=== PATIENT | female | born 1970 | race Caucasian/White ===

== ENCOUNTER 2020-01-29 17:41 | Emergency (ER) | payer OTHER, SELFPAY ==
[2020-01-29 18:22] VITALS: BP 127/76; PULSE 72; RESP 16; TEMP 37.2; O2SAT 98; BMI 26.8
--- NOTE | 2020-01-29 18:58 | ED.BACK ---
HPI - Back Pain/Injury General Chief Complaint: Back Pain/Injury <Temo Benitez NP - Last Filed: 01/29/20 19:11> Stated Complaint: BACK PAIN <Temo Benitez NP - Last Filed: 01/29/20 19:11> Time Seen by Provider: 01/29/20 18:58 <Temo Benitez NP - Last Filed: 01/29/20 19:11> Source: patient <Temo Benitez NP - Last Filed: 01/29/20 19:11> Mode of arrival: ambulatory <Temo Benitez NP - Last Filed: 01/29/20 19:11> Limitations: no limitations <Temo Benitez NP - Last Filed: 01/29/20 19:11> History of Present Illness HPI Narrative: 49-year-old female with history of arthritis and chronic back pain in the setting of degenerative disc disease for which she sees ? 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 States back pain feels achy and tense. Similar to her previous episodes. There is no GI symptoms. There is no fever. Denies any history of IVDA use. No headache. No abdominal pain. No loss of bowel or urine control. <Temo Benitez NP - Last Filed: 01/29/20 19:11> MD elicited complaint: back injury ( Cleaning at work) <Temo Benitez NP - Last Filed: 01/29/20 19:11> Pertinent past history: prior back pain <Temo Benitez NP - Last Filed: 01/29/20 19:11> Onset (ago): hour(s) <Temo Benitez NP - Last Filed: 01/29/20 19:11> Timing: intermittent ( improved with rest and certain positions) <Temo Benitez NP - Last Filed: 01/29/20 19:11> Severity: moderate <Temo Benitez NP - Last Filed: 01/29/20 19:11> Similar Symptoms Previously: Yes <Temo Benitez NP - Last Filed: 01/29/20 19:11> Exacerbating factors: movement <Temo Benitez NP - Last Filed: 01/29/20 19:11> Relieving factors: other ( rest) <Temo Benitez NP - Last Filed: 01/29/20 19:11> Work related injury: Yes <Temo Benitez NP - Last Filed: 01/29/20 19:11> Related Data Home Medications: Previous Rx's Medication Instructions Recorded cyclobenzaprine 10 mg PO TID PRN #20 tab 01/29/20 ibuprofen 800 mg PO Q8H PRN #30 tab 01/29/20 lidocaine 1 patch TOPICAL Q24H PRN #10 ea 01/29/20 <Temo Benitez NP - Last Filed: 01/29/20 19:11> Allergies/Adverse Reactions: Allergies Allergy/AdvReac Type Severity Reaction Status Date / Time No Known Allergies Allergy Unverified 01/08/20 17:12 [No Known Allergies*] gabapentin [GABAPENTIN] AdvReac Intermediate INADEQUATE Unverified 01/09/20 10:17 RESPONSE prednisone [PREDNISONE] AdvReac Intermediate INADEQUATE Unverified 01/09/20 10:17 RESPONSE BuPROPion HCl Allergy Unknown Uncoded 05/23/19 00:00 <Temo Benitez NP - Last Filed: 01/29/20 19:11> Review of Systems Review of Systems: Constitutional: No Weight loss, No Fever, No Chills, No Night Sweats, No Fatigue, No Malaise ENT/Mouth: No Hearing loss, No Ear Pain, No Nasal Congestion, No Sinus Pain, No Hoarseness, No sore throat, No Rhinorrhea, No Swallowing Difficulty Eyes: No Eye Pain, No Swelling, No Redness, No Foreign Body, No Discharge, No Vision Changes Cardiovascular: No Chest Pain, No SOB, No Dyspnea on Exertion, No Orthopnea, No Edema, No Palpitations Respiratory: No Cough, No Sputum, No Wheezing, No Smoke Exposure, No Dyspnea Gastrointestinal: No Nausea, No Vomiting, No Diarrhea, No Constipation, No abdominal Pain, No Hematochezia, No Melena Genitourinary: no irregular bleeding, No Dysuria, No Urinary Frequency, No Hematuria, No Urinary Incontinence, No Urgency, No Flank Pain, No Urinary Flow Changes, No Hesitancy Musculoskeletal: No joint pain, No Myalgias, No Joint Swelling Skin: No Skin Lesions, No rash Neuro: No Weakness, No Numbness, No Paresthesias, No Loss of Consciousness, No Dizziness, No Headache Psych: No Anxiety/Panic, No Depression, No SI/HI/AH/VH, No Social Issues, Heme/Lymph: No Bruising, No Bleeding,No Lymphadenopathy Endocrine: No Polyuria, No Polydipsia, No Temperature Intolerance <Temo Benitez NP - Last Filed: 01/29/20 19:11> [facility] Past Medical History Attestation statement: The following information was validated with the patient. <Temo Benitez NP - Last Filed: 01/29/20 19:11> Medical History: Medical History (Updated 01/29/20 @ 19:09 by Temo Benitez NP) Asthma Depression Herniated disc Mild asthma Right knee pain <Temo Benitez NP - Last Filed: 01/29/20 19:11> Social History Social History: Social History Smoking Status: Never smoker Use of substances other than those prescribed or required for medical reasons: No Advance Directives: No Advance Directives Information Provided: Yes <Temo Benitez NP - Last Filed: 01/29/20 19:11> Physical Exam Vital Signs and I&O and Narrative: Vital Signs and I&O: Vital Signs Temp 99.0 F 01/29/20 18:22 Pulse 72 01/29/20 18:22 Resp 16 01/29/20 18:22 BP 127/76 01/29/20 18:22 Pulse Ox 98 01/29/20 18:22 Intake & Output 01/29/20 01/29/20 01/30/20 06:59 18:59 06:59 Weight 64.41 kg Body Mass Index 26.8 <Temo Benitez NP - Last Filed: 01/29/20 19:11> Vital Signs and I&O: Vital Signs Temp 99.0 F 01/29/20 18:22 Pulse 72 01/29/20 18:22 Resp 16 01/29/20 18:22 BP 127/76 01/29/20 18:22 Pulse Ox 98 01/29/20 18:22 Intake & Output 01/29/20 01/29/20 01/30/20 06:59 18:59 06:59 Weight 64.41 kg Body Mass Index 26.8 <Bin Roberson DO - Last Filed: 01/29/20 23:04> Const: General: cooperative and healthy appearing; No acute distress or intoxicated appearing <[facility] Bentiez, REGULATORY ASSOCIATE - Last Filed: 01/29/20 19:11> Nutritional Appearance: average body habitus <[facility] Benitez - Last Filed: 01/29/20 19:11> Orientation/consciousness: patient oriented x3 [facility] Last Filed: 01/29/20 19:11> HENMT: Head: Yes normal to inspection <[facility] - Last Filed: 01/29/20 19:11> Ears: hearing grossly normal bilaterally <[facility] - Last Filed: 01/29/20 19:11> Eyes: General: appearance normal, both eyes and all related structures <[facility] Benitez, - Last Filed: 01/29/20 19:11> Visual Henriquez: normal visual henriquez by confrontation <[facility] lEi - Last Filed: 01/29/20 19:11> Neck: Neck: Yes normal visual inspection, No positive Brudzinski's sign, No positive Kernig's sign and No tender <[facility] Eli - Last Filed: 01/29/20 19:11> Thyroid: Thyroid normal <[facility] - Last Filed: 01/29/20 19:11> Chest: Chest palpation & inspection: normal inspection of the chest <[facility] Eli - Last Filed: 01/29/20 19:11> Resp: Effort & Inspection: normal respiratory effort <[facility] Eli - Last Filed: 01/29/20 19:11> Cardio: Jugular venous distension: no JVD <[facility] Eli - Last Filed: 01/29/20 19:11> GI: Inspection: Yes normal to inspection <[facility] Eli - Last Filed: 01/29/20 19:11> Percussion: Yes normal to percussion <[facility] - Last Filed: 01/29/20 19:11> Auscultation: normal bowel sounds <[facility] - Last Filed: 01/29/20 19:11> : General: Yes no CVA tenderness <Temo SimonDENISE douglas - Last Filed: 01/29/20 19:11> Back/Spine/Pelvis: Other: mild tenderness to the paraspinal muscles bilaterally. No midline standard palpation. deep tendon reflexes within normal limits. Negative leg lift. Negative Homans. Negative Spurling. <Temo BenitezDENISE - Last Filed: 01/29/20 19:11> Back: no CVA tenderness <Temo SimonDENISE douglas - Last Filed: 01/29/20 19:11> Skin: General skin exam: no rashes or lesions noted <Temo SimonDENISE douglas - Last Filed: 01/29/20 19:11> Neuro: General: patient oriented x3 <Temo SimonDENISE douglas - Last Filed: 01/29/20 19:11> Extrem: General: Yes normal to inspection <Temo SimonDENISE douglas - Last Filed: 01/29/20 19:11> Course Course Course Narrative: Agreeable plan. No low back pain red flags. Will DC with NSAID/ muscle axis/ topical light a and plan for follow-up with her back surgeon/ PT. Injury did occur at work will follow-up with her [facility] and [facility]. <Temo SimonDENISE douglas - Last Filed: 01/29/20 19:11> MDM - Back Pain/Injury Differential Diagnosis Differential diagnosis: Likely lumbar radiculopathy, sciatica and strain of lumbar region; Unlikely renal colic, pyelonephritis, thoracic back pain, AAA and discitis <Temo SimonDENISE douglas - Last Filed: 01/29/20 19:11> Medical Records Attestation: I reviewed the patient's medical records. <Temo SimonDENISE douglas - Last Filed: 01/29/20 19:11> Discharge Plan Discharge Clinical Impression: Strain of lumbar region Qualifiers: Encounter type: initial encounter Qualified Code(s): S39.012A - Strain of muscle, fascia and tendon of lower back, initial encounter <Temo DENISE Benitez - Last Filed: 01/29/20 19:11> Patient Disposition: Home, Self-Care <Temo SimonDENISE douglas - Last Filed: 01/29/20 19:11> Instructions: Back Pain (ED) <Temoherbert Benitez NP - Last Filed: 01/29/20 19:11> Prescriptions: New cyclobenzaprine 10 mg tablet 10 mg PO TID PRN (Reason: muscle spasm) Qty: 20 RF: 0 ibuprofen 800 mg tablet 800 mg PO Q8H PRN (Reason: pain) Qty: 30 RF: 0 lidocaine 4 % adhesive patch,medicated 1 patch topical Q24H PRN (Reason: pain) Qty: 10 RF: 0 <Temo Benitez NP - Last Filed: 01/29/20 19:11> Stand Alone Forms: Work/School Release <Temo Benitez NP - Last Filed: 01/29/20 19:11> Interventions: ED Discharge Assessment Last Done: 01/29/20 19:45 <Temo Benitez NP - Last Filed: 01/29/20 19:11> Discharge Date/Time: 01/29/20 20:00 <Temo Benitez NP - Last Filed: 01/29/20 19:11>
== END 2020-01-29 20:00 | disposition home or self-care (01) ==
PROVIDERS: Emergency Provider Emergency Medicine; PCP Internal Medicine
DX: S39.012A Strain of muscle, fascia and tendon of lower back, initial encounter (principal); X50.1XXA Overexertion from prolonged static or awkward postures, initial encounter; Y93.E5 Activity, floor mopping and cleaning; Y92.59 Other trade areas as the place of occurrence of the external cause; Y99.0 Civilian activity done for income or pay; Z79.899 Other long term (current) drug therapy
CPT/HCPCS: 99283

== ENCOUNTER → 2020-03-03 13:24 | Outpatient (BNVA) | payer OTHER, SELFPAY | PROVIDERS: Visit Provider Obstetrics & Gynecology | DX: Z01.818 Encounter for other preprocedural examination (principal); N92.1 Excessive and frequent menstruation with irregular cycle | CPT/HCPCS: 99212 ==

== ENCOUNTER 2020-03-05 08:13 | Day surgery (SDC) | payer OTHER, SELFPAY ==
[2020-03-02 19:25] VITALS: BMI 25.9
--- NOTE | 2020-03-03 14:43 | P.CONAN_ITS ---
Documented by User: Chanda Ramirez 03/03/20 14:45 HPI - Anesthesia Eval Consult details Narrative: 49yo F for Uterine Ablation w/Racheleasure PMFSH Past Medical History Medical History Anxiety Asthma Back pain Depression Herniated disc Mild asthma Right knee pain Surgical History Surgical History (Updated 03/03/20 @ 14:45 by Chanda Ramirez) H/O arthroscopy of knee H/O tubal ligation H/O umbilical hernia repair Social History Social History Alcohol intake: never Smoking Status: Former smoker Years Smoked: 20 Smoking Quit Date: 12 years ago Second Hand Smoke Exposure: No Use of substances other than those prescribed or required for medical reasons: No Advance Directives: No Advance Directives Information Provided: No Advance Directives on File: No Recently lost weight without trying: No Sexual orientation: Straight/Heterosexual Gender identity: female Meds Allergies Allergy/AdvReac Type Severity Reaction Status Date / Time gabapentin [GABAPENTIN] AdvReac Intermediate INADEQUATE Unverified 03/05/20 09:08 RESPONSE prednisone [PREDNISONE] AdvReac Intermediate INADEQUATE Unverified 03/05/20 09:08 RESPONSE BuPROPion HCl Allergy Unknown Unknown Uncoded 03/05/20 09:08 Home Medications Medication Instructions Recorded Confirmed Type clonazepam 1 tab PO DAILY PRN 03/02/20 03/03/20 History fluticasone propionate [Flovent 1 puff PO BID 03/02/20 03/03/20 History Diskus] sertraline 1.5 tab PO DAILY 03/02/20 03/03/20 History Exam Exam Date and Time: March 03, 2020 1443 Height,Weight and Vital Signs: Height 5 ft 1 in Weight 62.142 kg Pertinent Lab Results Pertinent Lab Results: Laboratory Tests 11/26/19 17:05 WBC 7.9 Hgb 10.9 L Hct 34.5 L Plt Count 291 Assessment and Plan Assessment Anesthesia Assessment: Chart Reviewed Documented by User: Tiffanie Rubio 03/05/20 09:49 [facility] Past Medical History Medical History Anxiety Asthma Back pain Depression Herniated disc Mild asthma Right knee pain Surgical History Surgical History (Updated 03/03/20 @ 14:45 by Chanda Ramirez) H/O arthroscopy of knee H/O tubal ligation H/O umbilical hernia repair Social History Social History Alcohol intake: never Smoking Status: Former smoker Years Smoked: 20 Smoking Quit Date: 12 years ago Second Hand Smoke Exposure: No Use of substances other than those prescribed or required for medical reasons: No Advance Directives: No Advance Directives Information Provided: No Advance Directives on File: No Recently lost weight without trying: No Sexual orientation: Straight/Heterosexual Gender identity: female Meds Allergies Allergy/AdvReac Type Severity Reaction Status Date / Time gabapentin [GABAPENTIN] AdvReac Intermediate INADEQUATE Unverified 03/05/20 09:08 RESPONSE prednisone [PREDNISONE] AdvReac Intermediate INADEQUATE Unverified 03/05/20 09:08 RESPONSE BuPROPion HCl Allergy Unknown Unknown Uncoded 03/05/20 09:08 Home Medications Medication Instructions Recorded Confirmed Type clonazepam 1 tab PO DAILY PRN 03/02/20 03/03/20 History fluticasone propionate [Flovent 1 puff PO BID 03/02/20 03/03/20 History Diskus] sertraline 1.5 tab PO DAILY 03/02/20 03/03/20 History Exam Airway Mallampati Class: I TM Dist: >3cm Neck ROM: Full Loose/Missing/Broken Teeth: No Heart: RRR Lungs: CTA Assessment and Plan Assessment Anesthesia Assessment: Anesthesia Plan Discussed and Chart Reviewed Final Anesthetic Review NPO: Yes ASA Class: II Final Preanesthetic Review: Meds/Allgs Chart Reviewed, Consent Obtained/Reviewed and Anes Risks/Benef Reviewed Patient Risk: Low Procedure Risk: Low Anesthetic Plan Anesthetic Plan: GA Disposition: Standard PACU
[2020-03-05 08:29] VITALS: BP 148/77; PULSE 70; RESP 20; TEMP 36.7; O2SAT 100; BMI 26.2
--- NOTE | 2020-03-05 08:46 | P.HPSUR_ITS ---
Pre-Procedural Eval Section A The patient is an INPATIENT: No Changes since office visit: No Cold of Flu in the past 2 weeks, No New Medical Problems, No Changes in Medication and No Patient answered all questions The History & Physical has been completed within 30 days and I have reviewed it.: Yes Section B Chief Complaint: Menometrorrhagia Allergies: Allergies Allergy/AdvReac Type Severity Reaction Status Date / Time gabapentin [GABAPENTIN] AdvReac Intermediate INADEQUATE Unverified 03/03/20 13: 46 RESPONSE prednisone [PREDNISONE] AdvReac Intermediate INADEQUATE Unverified 03/03/20 13:46 RESPONSE BuPROPion HCl Allergy Unknown Unknown Uncoded 03/03/20 13:46 Plan Diagnosis/Plan: Unchanged Patient has been examined and remains a candidate for the planned procedure
[2020-03-05] MEDS: Lactated Ringers 1,000 ML 100 ML IVCONT (09:07)
--- NOTE | 2020-03-05 10:05 | PM.OP ---
Brief Operative Note Date of Service: 03/05/20 Pre-op diagnosis: Menometrorrhagia Post-op diagnosis: same Procedure: NovaSure Endometrial Ablation Surgeon: Butch Mendez MD Anesthesia: MAC Estimated blood loss (mL): 0 Pathology: none sent Condition: stable Disposition: PACU
--- NOTE | 2020-03-05 10:07 | W.PM.OPN ---
Operative Note Operative Note Date of Service: 03/05/20 Narrative: Preop diagnosis: Menometrorrhagia Post Op Diagnosis: Same Anesthesia: MAC Assistanat: None QBL: Minimal Pathology: None Complications: None Procedure: The patient was put in the dorsal lithotomy position. She was prepped and draped in the usual sterile manner. Bimanual exam prior to prepping revealed a mobile, anteverted uterus. A speculum was placed in the vagina and the anterior lip of the cervix was grasped with a single toothed tenaculum and brought forward. Taking care not to enter deep into the uterus, a sound was passed inside to measure the length of the uterus and cervix. This length was found to be 8 cm. Next, Hegar dilator was inserted into the cervical os to measure the cervical length which was 3 cm. This yielded an endometrial cavity length of 5 cm. A series of Hegar dilators were then inserted sequentially into the cervical os up to a size of 5 mm. The Novasure device was then opened and tested; the fan deployed easily. The instrument was set to the correct cavity length and introduced into the uterine cavity. The fan was slowly deployed with gentle movements to ensure a snug fit within the cavity. The cavity width read 4.5 cm. The measurements were imported and a cavity check was done. The trumpet was then slid down to the cervix and the device was activated. The total burn time was 91 seconds. The fan was retracted and device removed. The fan was examined and revealed charred tissue. The tenaculum was removed and the cervix examined for hemostasis which was achieved using pressure. Finally the speculum was removed. The patient tolerated the procedure well and was brought to the recovery room in a stable condition. At the end of the procedure all sponges and instruments were counted and correct. The blood loss was minimal and there were no complications.
[2020-03-05 10:13] VITALS: BP 124/70; PULSE 65; RESP 14; TEMP 36.3; O2SAT 97
[2020-03-05 10:18] VITALS: BP 133/85; PULSE 66; RESP 16; O2SAT 97
[2020-03-05 10:23] VITALS: BP 143/83; PULSE 60; RESP 16; O2SAT 98
[2020-03-05 10:28] VITALS: BP 149/87; PULSE 62; RESP 16; O2SAT 98
[2020-03-05] MEDS: oxyCODONE HCl Immed Release 5 MG TABLET PO (10:38)
[2020-03-05] MEDS: Acetaminophen 325 MG TABLET 650 MG PO (10:38)
[2020-03-05 10:42] VITALS: BP 148/88; PULSE 56; RESP 16; O2SAT 99
--- NOTE | 2020-03-05 11:41 | HO.POSTANES ---
Post Anesthesia Evaluation Post Anesthesia Evaluation Vital Signs: Vital Signs Temp Pulse Resp BP Pulse Ox 03/05/20 10:42 56 16 148/88 H 99 03/05/20 10:28 62 16 149/87 H 98 03/05/20 10:23 60 16 143/83 H 98 03/05/20 10:18 66 16 133/85 97 03/05/20 10:13 97.3 F 65 14 124/70 97 03/05/20 08:29 98.1 F 70 20 148/77 H 100 Anesthesia: General Mental Status: Awake Pain Control: Satisfactory Nausea/Vomiting: None Hydration: Adequate Anesthesia-Related Issues: No Anes. Related Issues
== END 2020-03-05 11:25 | disposition home or self-care (01) ==
PROVIDERS: PCP Internal Medicine; Visit Provider Obstetrics & Gynecology
PROC: (CPT 58353; principal; 2020-03-05 09:40)
DX: N92.1 Excessive and frequent menstruation with irregular cycle (principal); J45.909 Unspecified asthma, uncomplicated; Z79.51 Long term (current) use of inhaled steroids; Z79.899 Other long term (current) drug therapy; Z88.8 Allergy status to other drugs, medicaments and biological substances; Z98.51 Tubal ligation status; Z87.891 Personal history of nicotine dependence
CPT/HCPCS: 58353; J1100; J1885; J2250; J2405; J3010

== ENCOUNTER → 2020-03-23 14:11 | Outpatient (BNVA) | payer OTHER, SELFPAY | PROVIDERS: Visit Provider Obstetrics & Gynecology | DX: Z76.89 Persons encountering health services in other specified circumstances (principal) ==

== ENCOUNTER 2020-03-30 11:24 | Outpatient (REF) | payer OTHER, SELFPAY ==
--- NOTE | 2020-03-30 | US_ITS ---
EXAMINATION: ULTRASOUND PELVIS COMPLETE CLINICAL INFORMATION: Ovarian cyst. COMPARISON: Ultrasound pelvis 11/26/2019 TECHNIQUE: Transabdominal and transvaginal ultrasound of the pelvis is performed. FINDINGS: The uterus is bulky, anteverted and anteflexed, measuring 9.8 cm in length, 3.5 cm AP, and 9.6 cm in transverse dimension. The endometrial thickness is 0.6 cm. There are several hypoechoic lesions. 1. Largest lesion in the left upper body of the uterus measures 4.6 x 4.1 x 5.2 cm. Previously it measured 5.4 x 4.2 x 4.9 cm. 2. Lesion in the right lower body of the uterus measures 2.2 x 1.5 x 1.9 cm. Roughly it measured 1.0 x 0.7 x 0.8 cm. 3. Lesion in the left lower body of the uterus measures 3.1 x 2.3 x 2.4 cm. Previously it measured 0.7 x 0.9 x 0.7 cm. There are small nabothian cysts in the cervix. The right ovary measures 1.9 x 1.2 x 1.3 cm and volume 1.6 mL. No focal lesion seen. The left ovary measures 2.4 x 1.3 x 1.5 cm and volume 2.5 mL. No lesion seen. There is no free fluid in the cul-de-sac. US/US pelvic complete IMPRESSION: Bulky anteverted uterus with at least 3 fibroids seen. On previous ultrasound 11/27/2019 there were more lesions seen, which are not well visualized on the present exam. Complex cyst seen in right ovary on the previous study. There are small nabothian cysts.
== END 2020-03-30 11:25 | disposition home or self-care (01) ==
LOC: HO.US 11:24
PROVIDERS: Visit Provider Obstetrics & Gynecology
DX: N83.299 Other ovarian cyst, unspecified side (principal)
CPT/HCPCS: 76830; 76856

== ENCOUNTER → 2020-04-05 12:11 | Outpatient (BNVA) | payer OTHER, SELFPAY | PROVIDERS: PCP Internal Medicine; Referring Provider Internal Medicine; Visit Provider Obstetrics & Gynecology | DX: Z76.89 Persons encountering health services in other specified circumstances (principal) ==

== ENCOUNTER 2020-05-31 17:14 | Outpatient (REF) | payer OTHER, SELFPAY | END 2020-05-31 17:15 | disposition home or self-care (01) | LOC: HO.LAB 17:14 | PROVIDERS: Visit Provider Internal Medicine | DX: Z20.822 Contact with and (suspected) exposure to COVID-19 (principal) | CPT/HCPCS: 36415; C9803; U0003; U0005 ==

== ENCOUNTER 2020-09-02 17:41 | Emergency (ER) | payer OTHER, SELFPAY ==
[2020-09-02 18:24] VITALS: BP 166/96; PULSE 81; RESP 16; TEMP 36.8; O2SAT 93; BMI 26.8
[2020-09-02 19:43] LABS: Influenza A PCR NEGATIVE (Negative); Influenza B PCR NEGATIVE (Negative); Resp Syncy Virus RNA Qual PCR NEGATIVE (Negative); SARS COV2 PCR INHOUSE NEGATIVE (Negative)
[2020-09-02 19:44] VITALS: BP 186/106; PULSE 85; RESP 14; TEMP 36.8; O2SAT 95
--- NOTE | 2020-09-02 20:43 | ED_ITS ---
HPI - Asthma General Chief Complaint: Asthma Stated Complaint: asthma Time Seen by Provider: 09/02/20 20:43 Source: patient Mode of arrival: ambulatory Limitations: no limitations History of Present Illness HPI Narrative: Patient with wheezing for 3 weeks. Saw her doctor a week ago and gave her a treatment. Patient states that she suffers from allergies. Was not placed on steroids. MD complaint: shortness of breath and wheezing Onset (ago): week(s) Severity: mild Associated symptoms: dry cough Related Data Home Medications Medication Instructions Recorded Confirmed clonazepam 1 tab PO DAILY PRN 03/02/20 08/26/20 fluticasone propionate [Flovent 1 puff PO BID 03/02/20 08/26/20 Diskus] sertraline 1.5 tab PO DAILY 03/02/20 08/26/20 Previous Rx's Medication Instructions Recorded cyclobenzaprine 10 mg PO TID PRN #20 tab 01/29/20 ibuprofen 800 mg PO Q8H PRN #30 tab 01/29/20 lidocaine 1 patch TOPICAL Q24H PRN #10 ea 01/29/20 tramadol 50 mg tablet 50 mg PO BID PRN 28 Days #56 tab 08/27/20 nebulizers #1 ea 09/01/20 albuterol sulfate 2 puff INHALATION QID PRN #8.5 g 09/02/20 mometasone [Nasonex] 2 spray INTRANASAL DAILY #17 g 09/02/20 prednisone 60 mg PO DAILY #12 tab 09/02/20 Allergies Allergy/AdvReac Type Severity Reaction Status Date / Time gabapentin [GABAPENTIN] AdvReac Intermediate INADEQUATE Verified 08/26/20 17:02 RESPONSE prednisone [PREDNISONE] AdvReac Intermediate INADEQUATE Verified 08/26/20 17:02 RESPONSE BuPROPion HCl Allergy Intermediate memory loss Uncoded 08/26/20 17:02 Review of Systems Constitutional: Constitutional: Reports no additional constitutional complaints Eyes: Eyes: Reports no additional eye complaints ENT: Denies dizziness Cardiovascular: Cardiovascular: Reports no additional cardiovascular complaints Respiratory: Respiratory: Reports as per HPI Gastrointestinal: Gastrointestinal: Reports no additional gastrointestinal complaints Genitourinary: Genitourinary: Reports no additional female genitourinary complaints Musculoskeletal: Musculoskeletal: Reports no additional musculoskeletal complaints Integumentary/Breasts: Skin/Breast: Denies rash Neurologic: Reports system reviewed and no additional complaints, except as documented, Denies dizziness and Denies Sensory deficit (Neuro) Psychiatric: Psychiatric: Denies anxiety [facility] Past Medical History Medical History (Updated 09/02/20 @ 20:49 by Ashutosh Shelley MD) Anxiety Asthma Back pain Depression Herniated disc Mild asthma Right knee pain Seasonal allergies Wheezing Surgical History H/O arthroscopy of knee H/O tubal ligation H/O umbilical hernia repair History of endometrial ablation Social History Social History Alcohol intake: never Smoking Status: Former smoker Years Smoked: 20 Second Hand Smoke Exposure: No Advance Directives: No Advance Directives Information Provided: No Patient : No Sexual orientation: Straight/Heterosexual Gender identity: female Physical Exam Vital Signs: Vital Signs: Last Vital Signs Temp 98.2 F 09/02/20 19:44 Pulse 85 09/02/20 19:44 Resp 14 09/02/20 19:44 BP 186/106 H 09/02/20 19:44 Pulse Ox 95 09/02/20 19:44 Body Mass Index 26.8 Const: General: healthy appearing Nutritional Appearance: average body habitus Orientation/consciousness: oriented to person and patient oriented x3 Limitations: no limitations HENMT: Head: Yes normal to inspection Ears: external ears normal General nose exam: Normal external nose present Mouth: Normal oral and palatal mucosa present and oropharynx normal Throat: Yes posterior oropharynx normal Eyes: General: appearance normal, both eyes and all related structures Neck: Other: supple Neck: Yes normal visual inspection Chest: Chest palpation & inspection: normal inspection of the chest Resp: Other: slight wheeze diffusely, cough Cardio: Jugular venous distension: no JVD Rate: regular rate Rhythm: regular rhythm Heart sounds: S1 normal heart sound present and S2 normal heart sound present GI: Inspection: Yes normal to inspection Palpation (GI): Soft to palpation, nontender and No hepatosplenomegaly present Auscultation: normal bowel sounds : General: Yes no CVA tenderness Back/Spine/Pelvis: Back: no CVA tenderness Skin: General skin exam: no rashes or lesions noted Neuro: General: oriented to person and patient oriented x3 Cranial nerves: Yes CN's II-XII intact bilaterally Motor exam (neuro): 5/5 motor strength pre sent throughout Sensory Exam: No Sensory deficit (Neuro) Extrem: General: Yes normal to inspection Psych: Appearance: grossly normal Course Course Course Narrative: will give albuterol and prednisone MDM - Asthma MDM Narrative Medical decision making narrative: Patient with asthma attack, likely due to seasonal allergies Lab Data Labs: Lab Results 09/02/20 Range/Units 18:54 Coronavirus (PCR) NEGATIVE (Negative) Influenza Type A (PCR) NEGATIVE (Negative) Influenza Type B (PCR) NEGATIVE (Negative) RSV RNA Qual (PCR) NEGATIVE (Negative) Discharge Plan Discharge Clinical Impression: Asthma with acute exacerbation Qualifiers: Asthma severity: mild Asthma persistence: persistent Qualified Code(s): J45.31 - Mild persistent asthma with (acute) exacerbation Patient Disposition: Home, Self-Care Instructions: Asthma (ED), Sinusitis (ED) Prescriptions: New albuterol sulfate 90 mcg/actuation HFA aerosol inhaler 2 puff inhalation QID PRN (Reason: shortness of breath or wheezing) Qty: 8.5 RF: 0 prednisone 20 mg tablet 60 mg PO DAILY Qty: 12 RF: 0 mometasone [Nasonex] 50 mcg/actuation spray,non-aerosol 2 spray intranasal DAILY Qty: 17 RF: 0 No Action tramadol 50 mg tablet 50 mg PO BID PRN (Reason: pain) 28 Days Qty: 56 RF: 0 (DME) AeroEclipse II Nebulizer Misc See Rx Instructions .ROUTE .MEDSUPPLY Qty: 1 RF: 0 cyclobenzaprine 10 mg tablet 10 mg PO TID PRN (Reason: muscle spasm) Qty: 20 RF: 0 ibuprofen 800 mg tablet 800 mg PO Q8H PRN (Reason: pain) Qty: 30 RF: 0 lidocaine 4 % adhesive patch,medicated 1 patch topical Q24H PRN (Reason: pain) Qty: 10 RF: 0 clonazepam 0.5 mg tablet 1 tab PO DAILY PRN (Reason: anxiety) RF: 0 sertraline 100 mg tablet 1.5 tab PO DAILY RF: 0 Flovent Diskus 250 mcg/actuation blister with device 1 puff PO BID RF: 0 ipratropium-albuterol 0.5 mg-3 mg(2.5 mg base)/3 mL solution for nebulization 3 ml inhalation ONCE Qty: 3 RF: 0 albuterol sulfate 2.5 mg /3 mL (0.083 %) solution for nebulization 2.5 mg continuous nebulization ONCE Qty: 3 RF: 0
[2020-09-02] MEDS: Albuterol Sulfate 90 MCG 8 GM INHALER 4 PUFF INHALE (21:02)
[2020-09-02] MEDS: predniSONE 20 MG TABLET 60 MG PO (21:03)
== END 2020-09-02 21:24 | disposition home or self-care (01) ==
PROVIDERS: Emergency Provider Emergency Medicine; PCP Internal Medicine
DX: J45.31 Mild persistent asthma with (acute) exacerbation (principal); Z20.822 Contact with and (suspected) exposure to COVID-19; J30.2 Other seasonal allergic rhinitis
CPT/HCPCS: 0241U; 36415; 99284

== ENCOUNTER 2020-09-23 11:05 | Outpatient (REF) | payer OTHER, SELFPAY ==
--- NOTE | ~2020-09-23 | US_ITS ---
EXAMINATION: US PELVIS COMPLETE CLINICAL INFORMATION: Benign neoplasm of connective and other soft tissues COMPARISON: Ultrasound pelvis 11/26/2019 and 03/30/2020 TECHNIQUE: Transabdominal and transvaginal imaging of pelvis is performed. FINDINGS: The uterus is anteverted and anteflexed measuring 9.7 cm in length, 4.7 cm in AP and 8.3 cm in transverse dimension. Endometrial thickness is 1.0 cm. There are several hypoechoic lesions in the uterus: 1. Lesion in the lower posterior body of uterus measures 0.9 x 0.8 x 1.1 cm. Previously measured 0.9 x 0.8 x 0.8 cm. 2. Lesion in the right mid body of uterus measures 1.3 x 1.0 x 1.4 cm. Previously it measured 1.1 x 1.1 x 1.2 cm. 3. Lesion in the left mid body of uterus measures 1.3 x 1.5 x 1.5 cm. Previously it measured 1.9 x 1.9 x 2.0 cm. 4. Lesion in the left mid body of uterus measures 1.2 x 1.0 x 1.1 cm. Previously it measured 1.2 x 1.4 x 1.2 cm. 5. Lesion in the upper anterior body of uterus measures 1.0 x 0.9 x 0.9 cm. Previously it measured 1.0 x 0.7 x 0.8 cm. 6. Lesion in the left mid body of uterus measures 1.7 x 1.4 x 1.5 cm. Previously it measured 0.7 x 0.9 x 0.7 cm. 7. Lesion in the left fundus and body junction measures 4.6 x 4.3 x 4.0 cm. Previously it measured 5.4 x 4.2 x 4.9 cm. 8. Lesion in the right body of uterus measures 1.5 x 1.5 x 1.6 cm. Previously it measured 0.8 x 0.5 x 0.8 cm. There is small complex nabothian cyst visualized. The right ovary measures 3.6 x 3.1 x 2.7 cm and volume 15.8 mL. There is anechoic simple cyst measuring 1.95 x 2.1 x 2.4 cm. Previously right ovary measured 2.8 x 2.3 x 3.2 cm. The left ovary measures 2.9 x 2.8 x 1.1 cm and volume 4.7 mL. Previously it measured 1.9 x 1.5 x 1.1 cm. There is minimal free fluid in the right adnexa. US/US pelvic complete IMPRESSION: Multiple uterine fibroids. Small nabothian cysts. Small simple right ovarian cyst. There is minimal free fluid in the right adnexa.
== END 2020-09-23 11:06 | disposition home or self-care (01) ==
LOC: HO.US 11:05
PROVIDERS: Visit Provider Obstetrics & Gynecology
DX: D21.9 Benign neoplasm of connective and other soft tissue, unspecified (principal)
CPT/HCPCS: 76830; 76856

== ENCOUNTER → 2020-10-04 16:14 | Outpatient (BNVA) | payer OTHER, SELFPAY | PROVIDERS: PCP Internal Medicine; Visit Provider Obstetrics & Gynecology ==

== ENCOUNTER 2020-10-18 13:45 | Outpatient (REF) | payer OTHER, SELFPAY ==
[2020-10-18 15:53] LABS: Glucose Urine UA NEG (NEG); Leukocyte Esterase Urine NEG (NEG); Nitrite Urine NEG (NEG); Specific Gravity - Urine 1.025 (1.005-1.025); Urine Blood NEG (NEG); Urine Ketones NEG (NEG); Urine Protein NEG (NEG-TRACE)
[2020-10-18 16:02] LABS: Appearance Urine CLEAR; Color Urine YELLOW
== END 2020-10-18 13:46 | disposition home or self-care (01) ==
LOC: HO.LAB 13:45
PROVIDERS: PCP Internal Medicine; Visit Provider Obstetrics & Gynecology
DX: R35.0 Frequency of micturition (principal)
CPT/HCPCS: 81003

== ENCOUNTER → 2021-04-13 15:50 | Outpatient (BNVA) | payer OTHER, SELFPAY | PROVIDERS: PCP Internal Medicine; Visit Provider Obstetrics & Gynecology ==

== ENCOUNTER 2021-05-20 16:09 | Outpatient (REF) | payer OTHER, SELFPAY ==
--- NOTE | ~2021-05-20 | MM_ITS ---
EXAMINATION: MM SCREENING DIGITAL BREAST TOMOSYNTHESIS, BILATERAL CLINICAL INFORMATION: Screening. Asymptomatic. The lifetime risk of breast cancer based on the Tyrer-Cuzick Model is 6%. COMPARISON: Mammography: 02/14/2019, 01/23/2018, 01/18/2017 TECHNIQUE: Digital breast tomosynthesis is performed in both the craniocaudal and mediolateral oblique views along with computer-aided detection (CAD). Synthesized 2D images are generated from the tomosynthesis. FINDINGS: There are scattered areas of fibroglandular density (ACR BI-RADS breast composition Category b). There are no significant masses, abnormal calcifications, or other abnormalities. Parenchymal pattern is similar to prior studies. There is no developing density or architectural abnormality. The axilla and skin contours are unremarkable. No significant changes. MM/MM tomosynthesis screening BI IMPRESSION: No mammographic evidence of malignancy. ASSESSMENT: BI-RADS 1: Negative RECOMMENDATION: Routine annual mammography screening. This patient's information was entered into a reminder system with a target due date for their next mammogram.
== END 2021-05-20 16:10 | disposition home or self-care (01) ==
LOC: HO.MAMMO 16:09
PROVIDERS: PCP Internal Medicine; Visit Provider Obstetrics & Gynecology
DX: Z12.31 Encounter for screening mammogram for malignant neoplasm of breast (principal)
CPT/HCPCS: 77063; 77067

== ENCOUNTER → 2021-06-30 13:47 | Outpatient (BNVA) | payer OTHER, SELFPAY | PROVIDERS: PCP Internal Medicine; Referring Provider Internal Medicine; Visit Provider Physician Assistant | DX: Z01.818 Encounter for other preprocedural examination (principal) | CPT/HCPCS: 99202 ==

== ENCOUNTER 2021-07-15 11:01 | Outpatient (REF) | payer OTHER, SELFPAY ==
--- NOTE | ~2021-07-15 | XR_ITS ---
EXAMINATION: XR KNEE, LEFT CLINICAL INFORMATION: Left knee pain. COMPARISON: None TECHNIQUE: AP and lateral views of the left knee. FINDINGS: No acute fracture or dislocation. Mild medial compartment joint space narrowing. No marginal osteophytes. No osseous erosion. No abnormal soft tissue calcification. No significant joint effusion. XR/XR knee LT 2V IMPRESSION: Mild medial compartment joint space narrowing. Otherwise unremarkable examination.
== END 2021-07-15 11:02 | disposition home or self-care (01) ==
LOC: HO.XRAY 11:01
PROVIDERS: PCP Internal Medicine; Visit Provider Nurse Practitioner Family
DX: M25.562 Pain in left knee (principal)
CPT/HCPCS: 73560

== ENCOUNTER → 2021-09-01 13:54 | Outpatient (BNVA) | payer OTHER, SELFPAY | PROVIDERS: PCP Internal Medicine; Visit Provider Internal Medicine | DX: J45.909 Unspecified asthma, uncomplicated (principal) | CPT/HCPCS: 94618; 99212 ==

== ENCOUNTER 2021-09-02 07:22 | Day surgery (SDC) | payer OTHER, SELFPAY ==
[2021-08-29 11:13] VITALS: BMI 28.3
--- NOTE | 2021-09-01 12:05 | HO.ANESPROP2 ---
Documented by User: Chanda Ramirez NP 09/01/21 12:05 HPI - Anesthesia Eval Consult details Narrative: 51yo F for Colonoscopy GI provider requests pulmo clearance - pending [facility] Active Problems Active Problems: All Active Problems (Updated 07/15/21 @ 10:13 by MARCO Guadalupe-C) Menometrorrhagia (Acute) Myoma (Acute) Complex ovarian cyst (Acute) Moderate persistent asthma (Acute) Urinary frequency (Acute) Well woman exam (Acute) Encounter for screening colonoscopy (Acute) Left knee pain (Acute) Wheezing (Acute) Seasonal allergies (Acute) Past Medical History Medical History (Updated 09/02/21 @ 07:43 by Dinora Martinez, LUCIAN) Anxiety Arthritis Asthma Back pain Bronchial asthma Depression Herniated disc Mild asthma Right knee pain Seasonal allergies Wheezing Surgical History Surgical History H/O arthroscopy of knee H/O tubal ligation H/O umbilical hernia repair History of endometrial ablation Social History Social History (Updated 07/15/21 @ 10:06 by Carolyn Braga Juan Luis) Housing: House Alcohol intake: never Patient Tobacco Use Status: Former Tobacco user Quit Date: 14 yrs ago Years Smoked: 20 e-Cigarette/Vaping Use: Never Used Second Hand Smoke Exposure: No Use of substances other than those prescribed or required for medical reasons: No Are you DNR?: No Advance Directives: No Advance Directives Information Provided: Yes service: No Current occupational status: employed Sexual orientation: Straight/Heterosexual Gender identity: Female Cognitive needs: No Hearing needs: No Vision needs: Yes (glasses) Meds Allergies Allergy/AdvReac Type Severity Reaction Status Date / Time gabapentin [GABAPENTIN] AdvReac Intermediate INADEQUATE Verified 09/02/21 07:43 RESPONSE prednisone [PREDNISONE] AdvReac Intermediate INADEQUATE Verified 09/02/21 07:43 RESPONSE BuPROPion HCl Allergy Intermediate memory loss Uncoded 09/01/21 14:40 Home Medications Medication Instructions Recorded Confirmed Last Taken Type clonazepam 0.5 mg tablet 1 tab PO DAILY PRN 03/02/20 09/02/21 Unknown History sertraline 100 mg tablet 1.5 tab PO DAILY 03/02/20 09/02/21 Unknown History dupilumab 300 mg/2 mL subcutaneous 200 mg SUBCUT Q2W ml 07/15/21 09/02/21 Unknown History pen injector (Dupixent) Exam Exam Date and Time: September 01, 2021 1205 Height,Weight and Vital Signs: Height 5 ft 1 in Weight 68.039 kg Assessment and Plan Assessment Anesthesia Assessment: Chart Reviewed Documented by User: Marnie Aleman MD 09/02/21 08:32 [facility] Past Medical History Medical History (Updated 09/02/21 @ 07:43 by Dinora Martinez RN) Anxiety Arthritis Asthma Back pain Bronchial asthma Depression Herniated disc Mild asthma Right knee pain Seasonal allergies Wheezing Family History Family history of problems with anesthesia: No Surgical History Surgical History H/O arthroscopy of knee H/O tubal ligation H/O umbilical hernia repair History of endometrial ablation History of Problems with Anesthesia: No Social History Social History (Updated 07/15/21 @ 10:06 by LJ Pineda) Housing: House Alcohol intake: never Patient Tobacco Use Status: Former Tobacco user Quit Date: 14 yrs ago Years Smoked: 20 e-Cigarette/Vaping Use: Never Used Second Hand Smoke Exposure: No Use of substances other than those prescribed or required for medical reasons: No Are you DNR?: No Advance Directives: No Advance Directives Information Provided: Yes service: No Current occupational status: employed Sexual orientation: Straight/Heterosexual Gender identity: Female Cognitive needs: No Hearing needs: No Vision needs: Yes (glasses) Meds Allergies Allergy/AdvReac Type Severity Reaction Status Date / Time gabapentin [GABAPENTIN] AdvReac Intermediate INADEQUATE Verified 09/02/21 07:43 RESPONSE prednisone [PREDNISONE] AdvReac Intermediate INADEQUATE Verified 09/02/21 07:43 RESPONSE BuPROPion HCl Allergy Intermediate memory loss Uncoded 09/01/21 14:40 Home Medications Medication Instructions Recorded Confirmed Last Taken Type clonazepam 0.5 mg tablet 1 tab PO DAILY PRN 03/02/20 09/02/21 Unknown History sertraline 100 mg tablet 1.5 tab PO DAILY 03/02/20 09/02/21 Unknown History dupilumab 300 mg/2 mL subcutaneous 200 mg SUBCUT Q2W ml 07/15/21 09/02/21 Unknown History pen injector (Dupixent) Exam Airway Mallampati Class: II TM Dist: >3cm Neck ROM: Full Heart: rrr Lungs: cta Assessment and Plan Assessment Anesthesia Assessment: Anesthesia Plan Discussed Final Anesthetic Review Family History of Problems with Anesthesia: No History of Problems with Anesthesia: No NPO: Yes ASA Class: II Final Preanesthetic Review: No Changes in Pt Med Stat, Meds/Allgs Chart Reviewed and Consent Obtained/Reviewed Patient Risk: Intermediate Procedure Risk: Intermediate Anesthetic Plan Anesthetic Plan: MAC: Disposition: Standard PACU
[2021-09-02 07:50] VITALS: BP 154/88; PULSE 69; RESP 16; TEMP 36.6; O2SAT 99
[2021-09-02] MEDS: Lactated Ringers 1,000 ML 100 ML IVCONT (07:56)
--- NOTE | 2021-09-02 08:32 | P.HPSUR_ITS ---
Pre-Procedural Eval Section A Date of Service: 09/02/21 Section B Chief Complaint: screening Details of Present Illness: Colon cancer screening Relevant Family History (Specify if Yes): Yes Relevant Social History: Tobacco Use (past smoker) Present Medications: see Short Stay Collaborative assessment Medical History: Significant History (Anxiety Asthma Back pain Depression Herni ated disc Mild asthma Right knee pain Seasonal allergies Wheezing) History of Previous Operations: Relevant previous surgery/procedure and date(s) (H/O arthroscopy of knee H/O tubal ligation H/O umbilical hernia repair History of endometrial ablation) Allergies: Allergies Allergy/AdvReac Type Severity Reaction Status Date / Time gabapentin [GABAPENTIN] AdvReac Intermediate INADEQUATE Verified 09/02/21 07:43 RESPONSE prednisone [PREDNISONE] AdvReac Intermediate INADEQUATE Verified 09/02/21 07:43 RESPONSE BuPROPion HCl Allergy Intermediate memory loss Uncoded 09/01/21 14:40 Review of Systems Sugical H&P ROS: Negative: Constitution, Cardiovascular, Respiratory and Gastrointestinal Exam Surgical H&P Exam: Normal: Heart, Normal: Lungs, Normal: Extremities and Normal: Abdomen Plan Diagnosis/Plan: Unchanged I have reviewed the history and physical and performed a pertinent physical examination on my patient. No changes have occurred unless specified.
--- NOTE | 2021-09-02 08:47 | P.OP_ITS ---
Operative Note Operative Note Date of Service: 09/02/21 Narrative: Pre-op diagnosis: Colon cancer screen, ? FH of colon polyps in a sister Post-op diagnosis:?other (Colon polyp, diverticulosis, hemorrhoids) Procedure: COLONOSCOPY TILL CECUM WITH BIOPSIES Consent: Indications for the procedure and potential complications of bleeding, perforation, reaction to medications and missed diagnosis were discussed with the patient and informed consent was obtained. Instrument: Olympus PCF H 190 L variable stiffness pediatric colonoscope Monitoring: Vital signs and clinical assessment, intermittent blood pressure monitoring, continuous EKG monitoring, Pulse oximetry and Carbon Dioxide monitoring were done throughout the procedure. Colon withdrawl time was 14 minutes. Procedure: The patient was placed in the left lateral decubitis position and pre-procedure medications were administered. After a digital rectal examination of the ano-rectum, the video colonoscope was inserted into the rectum and advanced through the colon to the cecum. The colonoscope was slowly withdrawn in a retrograde panoramic fashion and the colon mucosa was carefully examined including a retroflexed view of the rectum. Findings and interventions are described below. Procedure Difficulty:? Colon was long and tortuous and there was some loop formation - no maneuvers required Findings: Terminal Ileum: Not evaluated Cecum:? Normal Ascending Colon:? Normal Transverse Colon:? A 3-4 mm diminutive appearing polyp removed with a cold biopsy Descending Colon:? Normal Sigmoid Colon:? Moderate diverticulosis Rectum:? Normal Ano-rectum:? Moderate internal hemorrhoids Colon preparation: Excellent ? Impression and Post Procedure Diagnosis: Colonoscopy Findings: One tiny polyp removed Moderate diverticulosis seen in the sigmoid colon Moderate hemorrhoids on retroflexed exam. Plan: Await pathology results Patient has an appointment on 09/15/21 in the GI Clinic with LILLIANA Sotomayor. Repeat Colonoscopy interval based on path results - in 5 years if polyps are adenomatous and due to FH of colon polyps in a sister. (Adult colonoscope for future colonoscopies) Above findings were reviewed with the patient and colon polyps and diverticulosis handouts were given in the discharge area Surgeon: Pablo Wall MD Anesthesia:?MAC (Dr Christensen) Was an Purse Seining Hand used for this Procedure?:?Yes Purse Seining Hand:?Kyra Hester Estimated blood loss (mL):?0 Pathology:?other (A. transverse colon polyp) Condition:?stable Disposition:?PACU
[2021-09-02 09:22] VITALS: BP 123/72; PULSE 74; RESP 16; TEMP 36.6; O2SAT 98
[2021-09-02 09:37] VITALS: BP 109/64; PULSE 59; RESP 17; O2SAT 99
[2021-09-02 09:52] VITALS: BP 112/85; PULSE 70; RESP 18; TEMP 36.7; O2SAT 99
== END 2021-09-02 10:26 | disposition home or self-care (01) ==
PROVIDERS: PCP Internal Medicine; Visit Provider Internal Medicine Gastroenterology
PROC: 0DJD8ZZ Inspection of Lower Intestinal Tract, Via Natural or Artificial Opening Endoscopic (ICD-10-PCS; CPT 45378; principal; 2021-09-02 08:30)
DX: Z12.11 Encounter for screening for malignant neoplasm of colon (principal); Z83.71 Family history of colonic polyps; K63.5 Polyp of colon; K57.30 Diverticulosis of large intestine without perforation or abscess without bleeding; K64.8 Other hemorrhoids; J45.909 Unspecified asthma, uncomplicated; F41.1 Generalized anxiety disorder; Z79.51 Long term (current) use of inhaled steroids; Z79.899 Other long term (current) drug therapy; Z88.8 Allergy status to other drugs, medicaments and biological substances; Z87.891 Personal history of nicotine dependence
CPT/HCPCS: 45380; 88305

== ENCOUNTER → 2021-09-15 14:26 | Outpatient (BNVA) | payer OTHER, SELFPAY | PROVIDERS: PCP Internal Medicine; Referring Provider Internal Medicine; Visit Provider Physician Assistant | DX: K64.9 Unspecified hemorrhoids (principal); K57.30 Diverticulosis of large intestine without perforation or abscess without bleeding | CPT/HCPCS: 99212 ==

== ENCOUNTER 2021-10-26 11:01 | Outpatient (REF) | payer OTHER, SELFPAY ==
--- NOTE | ~2021-10-26 | XR_ITS ---
EXAMINATION: XR ABDOMEN COMPLETE CLINICAL INDICATION: Left lower quadrant pain COMPARISON: None TECHNIQUE: Supine views of the abdomen. FINDINGS: There are no dilated loops of bowel to suggest obstruction. There is no evidence of free air. No calcifications are seen. There are degenerative changes of the lower lumbar spine. XR/XR abdomen 3V IMPRESSION: No evidence of obstruction or free air.
[2021-10-26 12:36] LABS: Hematocrit 42.6 % (37.0-47.0); Hemoglobin 14.3 g/dl (12.0-16.0); Mean Corpuscular HGB Conc 33.6 g/dl (31.0-35.0); Mean Corpuscular Hemoglobin 29.3 pg (27.0-33.0); Mean Corpuscular Volume 87.3 fL (80.0-98.0); Mean Platelet Volume 11.4 fL (9.4-12.3); Platelet Count 247 X10*3/uL (160-400); Red Blood Count 4.88 X10*6/uL (4.20-5.50); Red Cell Distribution Width 12.4 % (11.0-16.0); White Blood Count 6.8 X10*3/uL (4.8-10.8)
[2021-10-26 13:13] LABS: Alanine Aminotransferase 11 U/L (0-31); Albumin Level 4.6 g/dL (3.5-5.0); Alkaline Phosphatase 76 U/L (39-117); Anion Gap 12 (12-20); Aspartate Amino Transferase 13 U/L (5-31); Bilirubin Direct 0.3 mg/dL (0.0-0.5); Bilirubin Total 0.8 mg/dL (0.0-1.0); Blood Urea Nitrogen 16 mg/dL (9-16); Calcium 10.2 mg/dL (8.4-10.2); Carbon Dioxide 30 mmol/L (22-29); Chloride 101 mmol/L (96-108); Estimated Glomerular Filt Rate > 60; Glucose Random 105 mg/dL (60-115); Lipase 7 U/L (8-78); Potassium 4.4 mmol/L (3.3-5.1); Sodium 139 mmol/L (135-145); Total Protein 8.1 g/dL (6.5-8.0)
[2021-10-28 14:37] LABS: CRP High Sensitivity 3.3 mg/L
== END 2021-10-26 11:02 | disposition home or self-care (01) ==
LOC: HO.XRAY 11:01
PROVIDERS: PCP Internal Medicine; Visit Provider Physician Assistant
DX: R10.32 Left lower quadrant pain (principal)
CPT/HCPCS: 36415; 74021; 80048; 80076; 83690; 85027; 86141

== ENCOUNTER 2021-11-02 10:54 | Outpatient (REF) | payer OTHER, SELFPAY ==
[2021-11-04 14:08] LABS: H Pylori Breath Test Negative (Negative)
== END 2021-11-02 10:55 | disposition home or self-care (01) ==
LOC: CF 10:54
PROVIDERS: PCP Internal Medicine; Visit Provider Physician Assistant
DX: R10.32 Left lower quadrant pain (principal); K64.9 Unspecified hemorrhoids; K57.30 Diverticulosis of large intestine without perforation or abscess without bleeding; A04.8 Other specified bacterial intestinal infections
CPT/HCPCS: 36415; 83013; 99212

== ENCOUNTER → 2021-11-30 10:26 | Outpatient (BNVA) | payer OTHER, SELFPAY | PROVIDERS: PCP Internal Medicine; Visit Provider Physician Assistant | DX: R10.13 Epigastric pain (principal); K21.9 Gastro-esophageal reflux disease without esophagitis; Z79.899 Other long term (current) drug therapy | CPT/HCPCS: 99212 ==

== ENCOUNTER 2021-12-19 13:33 | Outpatient (REF) | payer OTHER, SELFPAY ==
[2021-12-20 06:47] LABS: CT PCR NOT DETECTED (Not Detect.); NG PCR NOT DETECTED (Not Detect.)
== END 2021-12-19 13:34 | disposition home or self-care (01) ==
LOC: HO.LAB 13:33
PROVIDERS: Visit Provider Obstetrics & Gynecology
DX: R10.2 Pelvic and perineal pain (principal)
CPT/HCPCS: 87491; 87591; 99212

== ENCOUNTER 2021-12-23 08:48 | Outpatient (REF) | payer OTHER, SELFPAY ==
--- NOTE | ~2021-12-23 | FL_ITS ---
EXAMINATION: XR FLUOROSCOPY UPPER GI WITH AIR CLINICAL INFORMATION: Abdominal pain COMPARISON: None TECHNIQUE: Air-contrast upper GI examination. FINDINGS: There is normal apposition of the focal cords while saying E. There is normal elevation of the soft palate while saying candy. Patient swallowed thin and thick barium without difficulty. No nasopharyngeal reflux or tracheal aspiration was present. There is normal esophageal motility without evidence of persistent stricture. No gastroesophageal reflux was identified. No mucosal abnormality seen. No hiatal hernia. The stomach demonstrates normal distensibility without mucosal abnormality. There is no delay in gastric emptying. The duodenal bulb and sweep appeared unremarkable. FLUOROSCOPY TIME: 1.9 minutes DAP: 47.417 mGy IMAGES: 17 DOSE AREA PRODUCT: 7.095 uGy-m2 (microgray-meter squared) FL/FL upper GI w air IMPRESSION: Unremarkable upper GI examination.
== END 2021-12-23 08:49 | disposition home or self-care (01) ==
LOC: HO.XRAY 08:48
PROVIDERS: Visit Provider Physician Assistant
DX: R10.9 Unspecified abdominal pain (principal); K21.9 Gastro-esophageal reflux disease without esophagitis
CPT/HCPCS: 74246

== ENCOUNTER 2022-01-09 12:39 | Outpatient (REF) | payer OTHER, SELFPAY ==
--- NOTE | ~2022-01-09 | US_ITS ---
EXAMINATION: US PELVIS CLINICAL INFORMATION: Pelvic and perineal pain; the last menstrual period is not specified. COMPARISON: Pelvic ultrasound dated 09/23/2020. TECHNIQUE: Ultrasound of the pelvis is performed using both transabdominal and transvaginal transducers along with Doppler. Transvaginal imaging is performed due to inadequate visualization transabdominally. FINDINGS: Uterus: The uterus is anteverted and anteflexed. The uterus measures 7.8 x 4.2 x 5.6 cm. The double wall endometrial thickness is 0.6 mm. Simple and complex nabothian cysts are noted within the cervix. The uterus is smooth in contour and has normal myometrial echogenicity. FIBROIDS: There are 4 fibroids seen. 1. Location: Anterior upper body, myometrial. Size: 5.2 x 4.9 x 5.2 cm. Prior: 4.3 x 4.0 x 4.6 cm. Fibroid characteristics: Heterogeneous echotexture. 2. Location: Posterior body, myometrial. Size: 1.9 x 2.0 x 1.7 cm. Prior: 1.2 x 1.0 x 1.1 cm. Fibroid characteristics: Heterogeneously hypoechoic. 3. Location: Anterior body, subserosal. Size: 0.7 x 0.6 x 1.0 cm. Prior: Not seen. Fibroid characteristics: Hypoechoic. 4. Location: Posterior upper body, myometrial. Size: 2.8 x 1.9 x 2.5 cm. Prior: Not seen. Fibroid characteristics: Heterogeneously hypoechoic. Adnexa: Both ovaries are visualized. There is normal color flow to the adnexa. There is no ovarian torsion. There is no pelvic ascites or fluid collection. Right ovary measures 4.2 x 1.5 x 2.9 cm (volume 9.8 mL). A 1.2 x 1.0 x 1.3 cm dominant simple cyst is noted. Left ovary measures 3.0 x 2.2 x 2.8 cm (volume 9.2 mL). US/US pelvic and transvaginal IMPRESSION: 1. Multiple uterine fibroids are noted, as detailed. 2. Nabothian cysts are seen within the cervix. 3. A 1.3 cm maximal diameter right ovarian simple, physiologic cyst is incidentally noted. No imaging follow-up is recommended for this finding.
== END 2022-01-09 12:40 | disposition home or self-care (01) ==
LOC: HO.HMGCX 12:39
PROVIDERS: PCP Internal Medicine; Visit Provider Obstetrics & Gynecology
DX: R10.2 Pelvic and perineal pain (principal)
CPT/HCPCS: 76830; 76856

== ENCOUNTER → 2022-02-22 09:38 | Outpatient (BNVA) | payer OTHER, SELFPAY | PROVIDERS: PCP Internal Medicine; Visit Provider Obstetrics & Gynecology | DX: D21.9 Benign neoplasm of connective and other soft tissue, unspecified (principal) | CPT/HCPCS: 99212 ==

== ENCOUNTER 2022-03-29 10:59 | Outpatient (REF) | payer OTHER, SELFPAY ==
[2022-03-29 12:58] LABS: Alanine Aminotransferase 12 U/L (0-31); Albumin Level 4.2 g/dL (3.5-5.0); Alkaline Phosphatase 78 U/L (39-117); Anion Gap 12 (12-20); Aspartate Amino Transferase 14 U/L (5-31); Bilirubin Total 0.4 mg/dL (0.0-1.0); Blood Urea Nitrogen 20 mg/dL (9-16); Carbon Dioxide 30 mmol/L (22-29); Chloride 104 mmol/L (96-108); Cholesterol 193 mg/dL; Estimated Glomerular Filt Rate > 60; Glucose Fasting 99 mg/dL (60-99); HDL Cholesterol 60 mg/dL; LDL Cholesterol Calculated 122 mg/dl; Potassium 4.6 mmol/L (3.3-5.1); Sodium 141 mmol/L (135-145); Total Protein 7.2 g/dL (6.5-8.0); Triglycerides 58 mg/dL
== END 2022-03-29 11:00 | disposition home or self-care (01) ==
LOC: HO.LAB 10:59
PROVIDERS: PCP Internal Medicine; Visit Provider Internal Medicine
DX: Z00.00 Encounter for general adult medical examination without abnormal findings (principal); E78.5 Hyperlipidemia, unspecified
CPT/HCPCS: 36415; 80053; 80061

== ENCOUNTER 2022-05-22 12:58 | Outpatient (REF) | payer OTHER, SELFPAY ==
--- NOTE | ~2022-05-22 | MM_ITS ---
EXAMINATION: MM SCREENING DIGITAL BREAST TOMOSYNTHESIS, BILATERAL CLINICAL INFORMATION: Screening. Asymptomatic. The lifetime risk of breast cancer based on the Tyrer-Cuzick Model is 5%. COMPARISON: Mammography: 05/20/2021, 02/14/2019, 01/23/2018 TECHNIQUE: Digital breast tomosynthesis is performed in both the craniocaudal and mediolateral oblique views along with computer-aided detection (CAD). Synthesized 2D images are generated from the tomosynthesis. FINDINGS: There are scattered areas of fibroglandular density (ACR BI-RADS breast composition Category b). There are no significant masses, abnormal calcifications, or other abnormalities. No architectural abnormality or developing density or significant change from prior studies. MM/MM tomosynthesis screening BI IMPRESSION: No mammographic evidence of malignancy. ASSESSMENT: BI-RADS 1: Negative RECOMMENDATION: Routine annual mammography screening. This patient's information was entered into a reminder system with a target due date for their next mammogram.
== END 2022-05-22 12:59 | disposition home or self-care (01) ==
LOC: HO.MAMMO 12:58
PROVIDERS: Visit Provider Internal Medicine
DX: Z12.31 Encounter for screening mammogram for malignant neoplasm of breast (principal)
CPT/HCPCS: 77063; 77067

== ENCOUNTER 2022-08-21 11:12 | Outpatient (REF) | payer OTHER, SELFPAY ==
--- NOTE | ~2022-08-21 | US_ITS ---
EXAMINATION: US PELVIS COMPLETE CLINICAL INFORMATION: Benign neoplasm of the connective tissues COMPARISON: Pelvic ultrasound 01/09/2022 TECHNIQUE: Transabdominal and transvaginal imaging was performed. FINDINGS: The uterus is enlarged with myomas measuring 12.4 x 3.7 x 5.7 cm. A regular homogeneous endometrium is identified measuring 0.6 cm. Nabothian cysts in the cervix. Multiple uterine myomas, including: * A 4.3 cm transmural myoma in the left aspect of the uterus, previously 5.2 cm decreased in size. * A 1.5 cm subserosal left body myoma, previously 2.0 cm, decreased in size. * A 1.1 cm intramural myoma, decreased from prior previously 2.8 cm. Both ovaries are of normal size and echogenicity. The right measures 2.3 x 1.0 x 1.6 cm for a volume of 1.9 mL. The left measures 2.8 x 1.4 x 1.7 cm for a volume of 3.5 mL. There is no pelvic free fluid. US/US pelvic and transvaginal IMPRESSION: Myomatous uterus with myomas overall decreased in size from prior measuring up to 4.3 cm.
== END 2022-08-21 11:13 | disposition home or self-care (01) ==
LOC: HO.US 11:12
PROVIDERS: PCP Internal Medicine; Visit Provider Obstetrics & Gynecology
DX: D21.9 Benign neoplasm of connective and other soft tissue, unspecified (principal)
CPT/HCPCS: 76830; 76856

== ENCOUNTER → 2022-09-04 10:33 | Outpatient (BNVA) | payer OTHER, SELFPAY | PROVIDERS: PCP Internal Medicine; Visit Provider Obstetrics & Gynecology | DX: D21.9 Benign neoplasm of connective and other soft tissue, unspecified (principal) | CPT/HCPCS: 99212 ==

== ENCOUNTER → 2022-10-17 13:00 | Outpatient (BNVA) | payer OTHER, SELFPAY | PROVIDERS: PCP Internal Medicine; Visit Provider Obstetrics & Gynecology ==

== ENCOUNTER 2022-11-17 13:27 | Outpatient (REF) | payer OTHER, SELFPAY ==
[2022-11-17 14:42] LABS: Appearance Urine Clear; Color Urine Yellow; Glucose Urine UA Negative (Negative); Leukocyte Esterase Urine Negative (Negative); Nitrite Urine Negative (Negative); PH 6.5 (5.0-9.0); Specific Gravity - Urine 1.025 (1.005-1.025); Urine Blood Negative (Negative); Urine Ketones Trace mg/dL (Negative); Urine Protein Negative (Neg-Trace)
== END 2022-11-17 13:28 | disposition home or self-care (01) ==
LOC: HO.LAB 13:27
PROVIDERS: PCP Internal Medicine; Visit Provider Internal Medicine
DX: R30.0 Dysuria (principal)
CPT/HCPCS: 81003

== ENCOUNTER 2022-11-30 10:59 | Outpatient (AMB) | payer OTHER, SELFPAY ==
[2022-11-30 11:01] VITALS: BP 132/92; PULSE 82; O2SAT 97; BMI 28.7
--- NOTE | 2022-11-30 11:01 | A.OFFPC_ITS ---
Vital Signs 11/30/22 11:01 Height 5 ft 1 in Weight 152 lb 2 oz BMI 28.7 BP 132/92 H Blood Pressure Location Lt brachial Position Sitting Pulse 82 Pulse Source Pulse Oximeter Pulse Oximetry (%) 97 Oxygen Delivery Method Room Air Intake Visit Reasons: 4mth f/u Vehicle Fuel Systems Converter Required: No Accompanied by: Self / Same As Patient Allergies gabapentin [GABAPENTIN] Adverse Reaction (Intermediate, Verified 11/30/22 11:26) INADEQUATE RESPONSE prednisone [PREDNISONE] Adverse Reaction (Intermediate, Verified 11/30/22 11:26) INADEQUATE RESPONSE BuPROPion HCl Allergy (Intermediate, Uncoded 11/30/22 11:26) memory loss Medication List - Last Reconciled 11/30/22 by Morelia Mendiola MD blood pressure test kit-medium As directed clonazepam 1 tab PO DAILY PRN dupilumab (Dupixent) 200 mg subcut Q2W lactulose 15 mL PO BEDTIME PRN 30 days nebulizers (AeroEclipse II Nebulizer) As directed omeprazole 20 mg PO DAILY sennosides (senna) 8.6 mg PO BEDTIME PRN 7 days sertraline 1.5 tabs PO DAILY simethicone (Gas Relief (simethicone)) 250 mg (2 x 125 mg) PO BID PRN sucralfate 1 g PO QID tramadol 50 mg PO BID PRN 28 days Tobacco use date assessed: 07/24/22 Dental Screening Dental Screen Date: 11/30/22 Did you have a dental visit in the last 12 months?: No Did you have a dental problem in the last 6 months where you did not have access to dental care?: No Was dental information given to patient?: Yes HPI HPI Comments 2 History of Present Illness Details This is a 52-year-old female with mild major depression, anxiety, chronic idiopathic constipation and chronic GERD that comes today for follow-up on her conditions. Once a refill on sertraline for her depression and clonazepam for her anxiety. Aware that clonazepam can cause sedation and sandro ction as well as dementia. Constipation stable with medications. GERD also stable with PPIs. Complains of pelvic pain and has fibroids in her uterus and would like to have a hysterectomy. She wants a 2nd opinion for OBGYN at [facility]. Has been having elevated blood pressure on occasions and I recommended to take her blood pressure 3 times a week and keep a diary of it. No chest pain or shortness of breath. [facility] Medical History (Updated 11/30/22 @ 11:45 by Morelia Mendiola MD) Anxiety Arthritis Asthma Back pain Bronchial asthma Depression Herniated disc Mild asthma Right knee pain Seasonal allergies Wheezing Surgical History H/O arthroscopy of knee H/O tubal ligation H/O umbilical hernia repair History of endometrial ablation Family History Mother HTN (hypertension) Pneumonia Sister HTN (hypertension) Father Heart attack Social History Housing: House Alcohol intake: never Patient Tobacco Use Status: Former Tobacco user Quit Date: 14 yrs ago Years Smoked: 20 e-Cigarette/Vaping Use: Never Used Second Hand Smoke Exposure: No service: No Current occupational status: unemployed Sexual orientation: Straight/Heterosexual Gender identity: Female Cognitive needs: No Hearing needs: No Vision needs: Yes (glasses) Female Reproductive History Menstrual Age of Menarche: 16 Questionnaire Thrive Questionnaire Date Thrive assessed: 07/24/22 MAHNAZ-7 AMB Questionnaire MAHNAZ-7 Date MAHNAZ - 7 assessed: 07/24/22 Source: Developed by Drs. Alton Motley, Anu Stubbs, Rajesh Nobles and colleagues, with an educational cynthia from [employer]. Review of Systems Const All systems reviewed & are unremarkable except as noted in HPI and below Eyes Reports no additional complaints, Denies change in vision and Denies other visual disturbances Card Denies chest pain at rest, Denies chest pain with activity, Denies edema, Denies irregular heart rhythm, Denies claudication, Denies dyspnea, Denies dyspnea on exertion, Denies orthopnea, Denies paroxysmal nocturnal dyspnea and Denies slow heart rate Resp Denies cough, Denies dyspnea and Denies dyspnea on exertion GI Denies abdominal pain, Denies change in bowel habits, Denies excessive flatus, Denies nausea and Denies vomiting Denies urinary incontinence, Denies urinary hesitancy and Denies urinary urgency Musc Denies abnormal gait, Denies atrophy, Denies deformity and Denies limited range of motion Skin/Breast Denies bleeding lesions, Denies changing lesions and Denies rash Neuro Denies abnormal gait and Denies lack of coordination Physical exam (Primary Care) Vital Signs: Last Vital Signs Pulse 82 11/30/22 11:01 BP 132/92 H 11/30/22 11:01 Pulse Ox 97 11/30/22 11:01 Oxygen Delivery Method Room Air 11/30/22 11:01 BMI result Body Mass Index 28.7 Tobacco/Smoking Status: Tobacco use Status Tobacco use date assessed 07/24/22 11/30/22 11:02 Patient Tobacco Use Status Former Tobacco user 11/30/22 11:02 e-Cigarette/Vaping Use Never Used 11/30/22 11:02 Thrive Assessment: Date of Thrive Assessment Date Thrive assessed 07/24/22 11/30/22 11:02 Eyes General: appearance normal, both eyes and all related structures Eyelids: Yes eyelids normal Conjunctivae: conjunctivae normal Neck Neck: Yes normal visual inspection and Yes supple Resp Effort & Inspection: normal respiratory effort Auscultation: clear to auscultation bilaterally Cardio Jugular venous distension: no JVD Rate: regular rate Rhythm: regular rhythm Heart sounds: S1 normal heart sound present and S2 normal heart sound present Extrem General: Yes full ROM Assessment and Plan Assessment & Plan (1) Mild major depression: Code(s): F32.0 - Major depressive disorder, single episode, mild Plan: Continue surgery (2) Anxiety: Code(s): F41.9 - Anxiety disorder, unspecified Plan: Continue clonazepam as needed (3) Chronic idiopathic constipation: Code(s): K59.04 - Chronic idiopathic constipation Plan: Continue lactulose as needed (4) Chronic GERD: Code(s): K21.9 - Gastro-esophageal reflux disease without esophagitis Plan: Continue PPIs Orders: Orders Comprehensive [place]. Panel Fast 4 Months Z00.00 - Encounter for general adult medical examination without abnormal findings Lipid Panel 4 Months E78.5 - Hyperlipidemia, unspecified, Z00.00 - Encounter for general adult medical examination without abnormal findings Referrals [facility] Referral D25.9 - Leiomyoma of uterus, unspecified Medications: Changed From sertraline 1.5 tabs PO DAILY F32.0 - Major depressive disorder, single episode, mild To sertraline 150 mg (1.5 x 100 mg) PO DAILY 90 days 135 tabs 1RF F32.0 - Major depressive disorder, single episode, mild From clonazepam 1 tab PO DAILY PRN anxiety F41.9 - Anxiety disorder, unspecified To clonazepam 0.5 mg PO DAILY 30 days PRN 30 tabs 0RF anxiety F41.9 - Anxiety disorder, unspecified Coding Level of Care Code Est Pt Level 4 (62624) Diagnoses Mild major depression F32.0 Anxiety F41.9 Chronic idiopathic constipation K59.04 Chronic GERD K21.9 Time Spent (min) 23
== END 2022-11-30 11:35 | disposition home or self-care (01) ==
PROVIDERS: PCP Internal Medicine; Visit Provider Internal Medicine
DX: F32.0 Major depressive disorder, single episode, mild (principal); F41.9 Anxiety disorder, unspecified; K59.04 Chronic idiopathic constipation; K21.9 Gastro-esophageal reflux disease without esophagitis
CPT/HCPCS: 99214

== ENCOUNTER 2023-03-26 11:05 | Outpatient (REF) | payer OTHER, SELFPAY ==
[2023-03-26 12:32] LABS: Alanine Aminotransferase 8 U/L (0-31); Albumin Level 4.2 g/dL (3.5-5.0); Alkaline Phosphatase 78 U/L (39-117); Anion Gap 11 (12-20); Aspartate Amino Transferase 11 U/L (5-31); Bilirubin Total 0.4 mg/dL (0.0-1.0); Blood Urea Nitrogen 19 mg/dL (9-16); Calcium 9.8 mg/dL (8.4-10.2); Carbon Dioxide 30 mmol/L (22-29); Chloride 105 mmol/L (96-108); Cholesterol 199 mg/dL (<200); Estimated Glomerular Filt Rate > 60; Glucose Fasting 89 mg/dL (60-99); HDL Cholesterol 57 mg/dL (>40); LDL Cholesterol Calculated 125 mg/dL (<100); Potassium 4.9 mmol/L (3.3-5.1); Sodium 141 mmol/L (135-145); Total Protein 7.4 g/dL (6.5-8.0); Triglycerides 85 mg/dL (<150)
== END 2023-03-26 11:06 | disposition home or self-care (01) ==
LOC: HO.LAB 11:05
PROVIDERS: PCP Internal Medicine; Visit Provider Internal Medicine
DX: Z00.00 Encounter for general adult medical examination without abnormal findings (principal); E78.5 Hyperlipidemia, unspecified
CPT/HCPCS: 36415; 80053; 80061

== ENCOUNTER 2023-04-03 15:47 | Outpatient (AMB) | payer OTHER, SELFPAY ==
--- NOTE | 2023-04-03 15:50 | MHC.PC.OV ---
Vital Signs 04/03/23 15:55 04/03/23 16:37 Height 5 ft 1 in Weight 150 lb BMI 28.3 BP 152/90 H 150/90 H Blood Pressure Location Lt brachial Lt brachial Position Sitting Sitting Intake Visit Reasons: Annual Exam Intake Note: Patient here for a physical exam It Architect Required: No Accompanied by: Self / Same As Patient Allergies gabapentin [GABAPENTIN] Adverse Reaction (Intermediate, Verified 04/03/23 16:07) INADEQUATE RESPONSE prednisone [PREDNISONE] Adverse Reaction (Intermediate, Verified 04/03/23 16:07) INADEQUATE RESPONSE BuPROPion HCl Allergy (Intermediate, Uncoded 04/03/23 16:07) memory loss Medication List - Last Reconciled 04/03/23 by Morelia Mendiola MD blood pressure test kit-medium As directed clonazepam 0.5 mg PO DAILY PRN 30 days dupilumab (Dupixent) 200 mg subcut Q2W nebulizers (AeroEclipse II Nebulizer) As directed omeprazole 20 mg PO DAILY sertraline 150 mg (1.5 x 100 mg) PO DAILY 90 days tramadol 50 mg PO BID PRN 28 days Tobacco use date assessed: 07/24/22 Dental Screening Dental Screen Date: 04/03/23 Did you have a dental visit in the last 12 months?: No Did you have a dental problem in the last 6 months where you did not have access to dental care?: No Was dental information given to patient?: Patient has dentist HPI HPI Comments History of Present Illness Details This is a 52-year-old female with mild major depression that comes for her physical exam. Depression stable with sertraline. Mammogram done April 2022 was normal. Colonoscopy done 2021 show colon polyps and will be repeated in 2026. Will have Pap smear in May 2023 at [facility]. No chest pain or shortness of breath. On tramadol for chronic low back pain and she is aware that can cause addiction. [facility] Medical History Arthritis Bronchial asthma Wheezing Seasonal allergies Back pain Anxiety Asthma Herniated disc Depression Mild asthma Right knee pain Surgical History History of endometrial ablation H/O umbilical hernia repair H/O arthroscopy of knee H/O tubal ligation Family History Mother HTN (hypertension) Pneumonia Sister HTN (hypertension) Father Heart attack Social History Housing: House Alcohol intake: never Patient Tobacco Use Status: Former Tobacco user Quit Date: 14 yrs ago Years Smoked: 20 e-Cigarette/Vaping Use: Never Used Second Hand Smoke Exposure: No service: No Current occupational status: unemployed Sexual orientation: Straight/Heterosexual Gender identity: Female Cognitive needs: No Hearing needs: No Vision needs: Yes (glasses) Female Reproductive History Menstrual Age of Menarche: 16 Questionnaire Thrive Questionnaire Date Thrive assessed: 07/24/22 MAHNAZ-7 AMB Questionnaire MAHNAZ-7 Date MAHNAZ - 7 assessed: 07/24/22 Source: Developed by Drs. Alton Motley, Anu Stubbs, Rajesh Nobles and colleagues, with an educational cynthia from [employer]. Review of Systems Const All systems reviewed & are unremarkable except as noted in HPI and below Eyes Reports no additional complaints, Denies change in vision and Denies other visual disturbances Card Denies chest pain at rest, Denies chest pain with activity, Denies edema, Denies irregular heart rhythm, Denies claudication, Denies dyspnea, Denies dyspnea on exertion, Denies orthopnea, Denies paroxysmal nocturnal dyspnea and Denies slow heart rate Resp Denies cough, Denies dyspnea and Denies dyspnea on exertion GI Denies abdominal pain, Denies change in bowel habits, Denies excessive flatus, Denies nausea and Denies vomiting Denies urinary incontinence, Denies urinary hesitancy and Denies urinary urgency Musc Denies abnormal gait, Denies atrophy, Denies deformity and Denies limited range of motion Skin/Breast Denies bleeding lesions, Denies changing lesions and Denies rash Neuro Denies abnormal gait and Denies lack of coordination Physical exam (Primary Care) Vital Signs: Last Vital Signs BP 152/90 H 04/03/23 15:55 BMI result Body Mass Index 28.3 Tobacco/Smoking Status: Tobacco use Status Tobacco use date assessed 07/24/22 04/03/23 15:51 Patient Tobacco Use Status Former Tobacco user 04/03/23 15:51 e-Cigarette/Vaping Use Never Used 04/03/23 15:51 Thrive Assessment: Date of Thrive Assessment Date Thrive assessed 07/24/22 04/03/23 15:51 Const Orientation/consciousness: patient oriented x3 HENLA Head: Yes normal to inspection, Yes normocephalic and Yes atraumatic Ears: external ears normal Eyes General: appearance normal, both eyes and all related structures Eyelids: Yes eyelids normal Conjunctivae: conjunctivae normal Neck Neck: Yes normal visual inspection and Yes supple Resp Effort & Inspection: normal respiratory effort Auscultation: clear to auscultation bilaterally Cardio Jugular venous distension: no JVD Rate: regular rate Rhythm: regular rhythm Heart sounds: S1 normal heart sound present and S2 normal heart sound present GI Inspection: Yes normal to inspection Palpation (GI): Soft to palpation and nontender Auscultation: normal bowel sounds Skin General skin exam: no rashes or lesions noted Neuro General: patient oriented x3 and no focal motor deficits Extrem General: Yes full ROM Psych Appearance: grossly normal Office Procedures Flu Questionnaire Does the patient have a severe egg allergy?: No Immunizations flu vacc [id number] 6mos up(PF) 60 mcg(15 mcgx4)/0.5 mL IM syringe Performing Provider: Morelia Mendiola MD [facility] Documented (not given) by: LJ Saunders on 04/03/23 15:59 Reason Not Given: Patient Refused Assessment and Plan Assessment & Plan (1) Physical exam: Code(s): Z00.00 - Encounter for general adult medical examination without abnormal findings Plan: Repeat in a year. (2) Mild major depression: Code(s): F32.0 - Major depressive disorder, single episode, mild Plan: Continue sertraline. Orders: Orders Influenza [id number] Immunization Today Z23 - Encounter for immunization Medications: New hydrochlorothiazide 12.5 mg PO DAILY 90 tabs 1RF 90 days Coding Level of Care Code Est Pt Prev Care 40-64y(18593) Diagnoses Physical exam Z00.00 Mild major depression F32.0 Time Spent (min) 32
[2023-04-03 15:55] VITALS: BP 152/90; BMI 28.3
[2023-04-03 16:37] VITALS: BP 150/90
== END 2023-04-03 16:18 | disposition home or self-care (01) ==
PROVIDERS: Visit Provider Internal Medicine
DX: Z00.00 Encounter for general adult medical examination without abnormal findings (principal); F32.0 Major depressive disorder, single episode, mild
CPT/HCPCS: 99396

== ENCOUNTER 2023-05-28 13:36 | Outpatient (REF) | payer OTHER, SELFPAY | END 2023-05-28 13:37 | disposition home or self-care (01) | LOC: HO.MAMMO 13:36 | PROVIDERS: PCP Internal Medicine; Visit Provider Internal Medicine | DX: Z12.31 Encounter for screening mammogram for malignant neoplasm of breast (principal) | CPT/HCPCS: 77063; 77067 ==

== ENCOUNTER → 2023-05-28 14:00 | Outpatient (BNV) | payer OTHER, SELFPAY | PROVIDERS: PCP Internal Medicine; Visit Provider Radiology Diagnostic Radiology | DX: Z12.31 Encounter for screening mammogram for malignant neoplasm of breast (principal) | CPT/HCPCS: 77063; 77067 ==

== ENCOUNTER 2023-11-19 14:07 | Outpatient (AMB) | payer OTHER, SELFPAY ==
[2023-11-19 14:09] VITALS: BP 132/82; BMI 28.5
--- NOTE | 2023-11-19 14:09 | A.OFFPC_ITS ---
Vital Signs 11/19/23 14:09 Height 5 ft 1 in Weight 151 lb BMI 28.5 BP 132/82 Blood Pressure Location Lt brachial Position Sitting Intake Visit Reasons: bp Intake Note: Patient here for a follow up BP Professional Skater Required: No Accompanied by: Self / Same As Patient Allergies gabapentin [GABAPENTIN] Adverse Reaction (Intermediate, Verified 11/19/23 14:34) INADEQUATE RESPONSE prednisone [PREDNISONE] Adverse Reaction (Intermediate, Verified 11/19/23 14:34) INADEQUATE RESPONSE BuPROPion HCl Allergy (Intermediate, Uncoded 11/19/23 14:34) memory loss Medication List - Last Reconciled 11/19/23 by Morelia Mendiola MD blood pressure test kit-medium once a day clonazepam 0.5 mg PO DAILY PRN 30 days dupilumab (Dupixent) 200 mg subcut Q2W hydrochlorothiazide 12.5 mg PO DAILY 90 days nebulizers (AeroEclipse II Nebulizer) As directed omeprazole 20 mg PO DAILY sertraline 150 mg (1.5 x 100 mg) PO DAILY 90 days tramadol 50 mg PO BID PRN 28 days Tobacco use date assessed: 11/19/23 Dental Screening Dental Screen Date: 11/19/23 Did you have a dental visit in the last 12 months?: Yes Did you have a dental problem in the last 6 months where you did not have access to dental care?: No Was dental information given to patient?: Patient has dentist HPI HPI Comments History of Present Illness Details This is a 53-year-old female with mild major depression and anxiety that complains of right hand pain insert and twisting movements and would like to see ortho. She also has chronic back pain mildly relieved by tramadol and she is interested in seeing pain management due to this matter. Depression with anxiety has been stable with medications and follow by Psychiatry. Blood pressure stable. [facility] Medical History Arthritis Bronchial asthma Wheezing Seasonal allergies Back pain Anxiety Asthma Herniated disc Depression Mild asthma Right knee pain Surgical History History of endometrial ablation H/O umbilical hernia repair H/O arthroscopy of knee H/O tubal ligation Family History Mother HTN (hypertension) Pneumonia Sister HTN (hypertension) Father Heart attack Social History Housing: House Alcohol intake: never Patient Tobacco Use Status: Former Tobacco user Years Smoked: 20 e-Cigarette/Vaping Use: Never Used Second Hand Smoke Exposure: No service: No Current occupational status: unemployed Sexual orientation: Straight/Heterosexual Gender identity: Female Cognitive needs: No Hearing needs: No Vision needs: Yes (glasses) Female Reproductive History Menstrual Age of Menarche: 16 Questionnaire PHQ-9 Over the last 2 weeks, how often have you been bothered by any of the following problems? 1. Little interest or pleasure in doing things: several days 2. Feeling down, depressed, or hopeless: nearly every day 3. Trouble falling or staying asleep, or sleeping too much: nearly every day 4. Feeling tired or having little energy: several days 5. Poor appetite or overeating: not at all 6. Feeling bad about yourself - or that you are a failure or have let yourself or your family down: not at all 7. Trouble concentrating on things, such as reading the newspaper or watching television: not at all 8. Moving or speaking so slowly that other people could have noticed. Or the opposite - being so fidgety or restless that you have been moving around a lot more than usual: not at all 9. Thoughts that you would be better off or of hurting yourself in some way: not at all Total score: 8 Depression Screening Interpretation: Positive Depression Screening Follow-up: Existing condition, In treatment, Community Mental Health Worker F/U and Follow- up Visit Requested Depression Screening Done: Yes 86251 - PHQ-9 Billing: Yes Source: Developed by Drs. Alton Motley, Anu Stubbs, Rajesh Nobles and colleagues, with an educational cynthia from [employer]. Thrive Questionnaire Date Thrive assessed: 11/19/23 I am a: Patient What is your living situation today?: I have a steady place to live Within the past 12 months, did the food you bought not last and you didn't have the money to get more?: Never true Within the past 12 months, did you worry whether your food would run out before you got money to buy more?: Never true Do you have trouble paying for medicines?: No Do you have trouble getting transportation to medical appointments?: No Do you have trouble paying your heating and electricity bill?: No Do you have trouble taking care of your child, family member or friend?: No Do you have trouble with day-to-day activities such as bathing, preparing meals, shopping, managing finances, etc.?: No Are you currently unemployed and looking for a job?: No Are you interested in more education?: No Please select the resources that you would like help with: None Currently or been in a relationship where the following occur: No concerns reported THRIVE Score: 0 AUDIT C Alcohol Use Questionnaire (AUDIT-C) 1. How often do you have a drink containing alcohol?: Monthly or less 2. How many drinks containing alcohol do you have on a typical day when you are drinking?: 1 or 2 3. How often do you have six or more drinks on one occasion?: Never Total Score: 1 Score Reviewed/Action Taken: No MAHNAZ-7 AMB Questionnaire MAHNAZ-7 Date MAHNAZ - 7 assessed: 11/19/23 Feeling nervous, anxious, or on edge: 3 = Nearly every day Not being able to stop or control worryin = Several days Worrying too much about different things: 3 = Nearly every day Trouble relaxin = Nearly every day Being so restless that it is hard to sit still: 0 = Not at all Becoming easily annoyed or irritable: 0 = Not at all Feeling afraid as if something awful might happen: 1 = Several days Total MAHNAZ-7 score (0-4 normal; 5-9 mild; 10-14 moderate; 15-21 severe): 11 Source: Developed by Drs. Alton Motley, Anu Stubbs, Rajesh Nobles and colleagues, with an educational cynthia from [employer]. MAHNAZ-7 Assessment Billing MAHNAZ-7 Assessment Tool: MAHNAZ-7 Assessment 75908 Review of Systems Const All systems reviewed & are unremarkable except as noted in HPI and below Card Denies chest pain at rest, Denies chest pain with activity, Denies edema, Denies irregular heart rhythm, Denies claudication, Denies dyspnea, Denies dyspnea on exertion, Denies orthopnea, Denies paroxysmal nocturnal dyspnea and Denies slow heart rate Resp Denies cough, Denies dyspnea and Denies dyspnea on exertion GI Denies abdominal pain, Denies change in bowel habits, Denies excessive flatus, Denies nausea and Denies vomiting Musc Reports back pain and Reports arthralgias Neuro Denies behavioral changes and Denies lack of coordination Psych Denies behavioral changes Physical exam (Primary Care) Vital Signs: Last Vital Signs BP 132/82 11/19/23 14:09 BMI result Body Mass Index 28.5 Tobacco/Smoking Status: Tobacco use Status Tobacco use date assessed 11/19/23 11/19/23 14:15 Patient Tobacco Use Status Former Tobacco user 11/19/23 14:15 e-Cigarette/Vaping Use Never Used 11/19/23 14:15 PHQ-9: PHQ-9 Score PHQ-9: Total score 8 11/19/23 14:15 Depression Screening Interpretation: Positive Depression Screening Follow-up: Existing condition, In treatment, Community Mental Health Worker F/U and Follow- up Visit Requested Thrive Assessment: Date of Thrive Assessment Date Thrive assessed 11/19/23 11/19/23 14:15 Currently or been in a relationship where the following occur: No concerns reported Resp Effort & Inspection: normal respiratory effort Auscultation: clear to auscultation bilaterally Cardio Jugular venous distension: no JVD Rate: regular rate Rhythm: regular rhythm Heart sounds: S1 normal heart sound present and S2 normal heart sound present Extrem General: Yes full ROM Assessment and Plan Assessment & Plan (1) Mild major depression: Code(s): F32.0 - Major depressive disorder, single episode, mild Plan: Continue SSRI. Follow-up with psychiatry. (2) Right hand pain: Code(s): M79.641 - Pain in right hand Plan: Referred to Ortho. (3) Anxiety: Code(s): F41.9 - Anxiety disorder, unspecified Plan: Continue benzodiazepines. Follow-up with psychiatry. (4) Back pain: Code(s): M54.9 - Dorsalgia, unspecified Plan: Referred to pain management. Orders: Referrals Orthopedics Referral M79.641 - Pain in right hand Pain Management Referral M54.9 - Dorsalgia, unspecified Coding Level of Care Code Est Pt Level 4 (09088) Complex EM visit Add On G2211 Diagnoses Mild major depression F32.0 Right hand pain M79.641 Anxiety F41.9 Back pain M54.9 Additional Codes MAHNAZ-7 Assessment Billing - MAHNAZ-7 Assessment Tool: MAHNAZ-7 Assessment 89183 ([id number]) Time Spent (min) 23
== END 2023-11-19 14:40 | disposition home or self-care (01) ==
PROVIDERS: PCP Internal Medicine; Visit Provider Internal Medicine
DX: M79.641 Pain in right hand (principal); F32.0 Major depressive disorder, single episode, mild; F41.9 Anxiety disorder, unspecified; M54.9 Dorsalgia, unspecified
CPT/HCPCS: 99214; G2211

== ENCOUNTER 2023-11-29 13:36 | Outpatient (AMB) | payer OTHER, SELFPAY ==
--- NOTE | 2023-11-29 14:21 | A.OFFVIS_ITS ---
Vital Signs 11/29/23 14:31 Height 5 ft 1 in Weight 149 lb 2 oz BMI 28.2 BP 184/96 H Blood Pressure Location Rt brachial Position Sitting Pulse 59 Pulse Source Pulse Oximeter Pulse Oximetry (%) 100 Oxygen Delivery Method Room Air Intake Visit Reasons: M54.9 - Dorsalgia, unspecified Intake Note: Pain today 8/10 Run Boat Operator Required: Yes Run Boat Operator Language: County Home Demonstrator Services: Run Boat Operator Present (Joya) Accompanied by: Self / Same As Patient Allergies gabapentin [GABAPENTIN] Adverse Reaction (Intermediate, Verified 11/19/23 14:34) INADEQUATE RESPONSE prednisone [PREDNISONE] Adverse Reaction (Intermediate, Verified 11/19/23 14:34) INADEQUATE RESPONSE BuPROPion HCl Allergy (Intermediate, Uncoded 11/19/23 14:34) memory loss HPI HPI M54.9 - Dorsalgia, unspecified: Details: Patient is a pleasant 53-year-old Polish-speaking female with history of right sided sciatica with right L4 herniated disc, lumbar scoliosis, anxiety and depression, presents today for initial evaluation of worsening chronic low back pain on the right side. Denies any past or recent trauma, injury, or falls. Patient was previously seen at [facility] where she completed physical therapy 1 year ago and underwent injections about 3 years ago with partial relief. Denies previous spine surgery. Back pain is axial with facetogenic and right sacroiliac joint pain components. Patient denies any radicular symptoms into lower extremities. Pain affects her daily activities and functioning, sleep, mood and social interactions. Pain is constant and is rated 8-10/10. Denies any fever, chills, abdominal or groin pain, weakness, footdrop, bowel or bowel dysfunction or saddle anesthesia. Oswestry low back pain disability score=29 (severe disability) Location: Low back pain with radiation to the right buttock and lateral right hip Duration: Chronic pain for 5 years Characteristics of symptom or complaint: Sharp, dull, tiring, aching, stabbing Aggravating or associated factors: Changing positions, walking, bending, twisting Relieving factors: nothing tried tramadol, Tylenol, ibuprofen, lidocaine patches Treatment: PT, Injections at [facility] Medical History Arthritis Bronchial asthma Wheezing Seasonal allergies Back pain Anxiety Asthma Herniated disc Depression Mild asthma Right knee pain Surgical History History of endometrial ablation H/O umbilical hernia repair H/O arthroscopy of knee H/O tubal ligation Family History Mother HTN (hypertension) Pneumonia Sister HTN (hypertension) Father Heart attack Social History Housing: House Alcohol intake: never Patient Tobacco Use Status: Former Tobacco user Years Smoked: 20 e-Cigarette/Vaping Use: Never Used Second Hand Smoke Exposure: No service: No Current occupational status: unemployed Sexual orientation: Straight/Heterosexual Gender identity: Female Cognitive needs: No Hearing needs: No Vision needs: Yes (glasses) Female Reproductive History Menstrual Age of Menarche: 16 Review of Systems Const All systems reviewed & are unremarkable except as noted in HPI and below Physical Exam Vital Signs: Last Vital Signs Pulse 59 11/29/23 14:31 BP 184/96 H 11/29/23 14:31 Pulse Ox 100 11/29/23 14:31 Oxygen Delivery Method Room Air 11/29/23 14:31 BMI result Body Mass Index 28.2 General: Appears afebrile. Alert and oriented. Mood and affect appropriate. Follows and participates in conversation appropriately. Respiratory effort is unlabored. No cough. Able to transition from sit to stand unassisted. Ambulates with bilaterally normal heel strike and toe off. General: Yes no CVA tenderness Back/Spine/Pelvis Other: Limited lumbar ROM due to pain. Patient is able to walk and stand on heels and tip toes with mild difficulty on the right due to pain otherwise demonstrating good motor tone. No limping. Can flex forward to 80-90 degrees and extend to 5- 10 degrees before experiencing lumbar pain. Demonstrates 5/5 strength of quadr iceps bilaterally as well as flexion/dorsiflexion of bilateral feet against resistance. 2+ pedal pulses bilaterally. Straight leg rise with dorsiflexion negative bilaterally. +2 patellar and achilles reflexes bilaterally. Facet loading test positive bilaterally. Gallo sign, Gt?s, Gaenslen, SI distraction, Pelvic compression and Stinchfield tests are positive on the right, equivocal on the left. No groin pain with I/E hip rotations. Back: no CVA tenderness Cervical Spine: cervical ROM normal, cervical muscular tenderness and No Cervical spine tenderness Thoracic/Lumbar Spine: thoracic and lumbar spine normal to inspection, No Thoracic/lumbar spine scar(s), Lasegue's sign negative, straight leg raise n egative bilaterally, pain with thoraco-lumbar ROM, paraspinal muscle tenderness on the right greater than left, Thoracic/lumbar scoliosis, No thoracic spinal tenderness and lumbar spinal tenderness (L3-S1) Pelvis: buttock tenderness on the right and no sciatic notch tenderness Sacroiliac joints: bilaterally tender to palpation Extrem General: Yes capillary refill normal, Yes no clubbing, cyanosis or edema and Yes no calf tenderness Results Reviewed Results Reviewed: MR LUMBAR SPINE WITHOUT CONTRAST 01/14/2016 CLINICAL INFORMATION: Low back pain with right-sided sciatica. FINDINGS: VERTEBRAL BODIES AND PARASPINAL STRUCTURES: There are 5 zgf-bob-[id number] lumbar type vertebral bodies. Vertebral body height, signal, and sagittal alignment are maintained. No marrow edema. No spondylolysis. There is a mild S-shaped lumbar scoliosis. There is mild disc desiccation and height loss, asymmetrically on the left at L1-L2 and asymmetrically on the right at L4-L5. The aorta is normal in caliber. No retroperitoneal adenopathy. The imaged SI joints are normal. CONUS MEDULLARIS AND CAUDA EQUINA: The conus terminates normally at L1-L2. There is normal signal within the conus medullaris, cauda equina, and along the expected course of the filum terminale. SPINAL LEVELS: T12-L1: Normal disc morphology. No canal or foraminal stenosis. L1-L2: Minor disc height loss on the left. Otherwise disc morphology is normal. No canal or foraminal stenosis. L2-L3: Normal disc morphology without canal or foraminal stenosis. Small left facet effusion. L3-L4: Normal disc morphology without canal or foraminal stenosis. Small facet effusions. L4-L5: There is disc bulge with a right foraminal shallow protrusion with annular fissuring which appears to potentially contact the inferior aspect of the exiting right L4 nerve root. Mild facet hypertrophy with a small left facet effusion. The canal is well maintained as is the left foramen. L5-S1: Normal disc morphology without canal or foraminal stenosis. IMPRESSION: L4-L5: Shallow right foraminal protrusion potentially contacting the inferior aspect of the exiting right L4 nerve root. Otherwise minor lumbar spondylosis without neural impingement. Mild S-shaped lumbar scoliosis. Assessment & Plan Assessment & Plan (1) Lumbosacral spondylosis: Code(s): M47.817 - Spondylosis without myelopathy or radiculopathy, lumbosacral region Category: Medical (2) Lumbar scoliosis: Code(s): M41.9 - Scoliosis, unspecified Category: Medical (3) Sacroiliac joint pain: Code(s): M53.3 - Sacrococcygeal disorders, not elsewhere classified Category: Medical (4) Sacroiliitis: Code(s): M46.1 - Sacroiliitis, not elsewhere classified Category: Medical (5) Lumbar degenerative disc disease: Code(s): M51.36 - Other intervertebral disc degeneration, lumbar region Category: Medical Plan Discussed interventional treatments for axial low back pain and right SIJ pain. We will send request for previous injections/procedures for review. Lumbar spine and SIJ imaging to assess degree of degenerative changes, any subluxation, listhesis, compression fractures or pars defects. Tentatively plan for right diagnostic SI joint injection with local and fluoroscopy. Discuss therapeutic injection, neuromodulation, SI joint stabilization in RFA procedures. Informational pamphlets were provided in Polish today. Expectations, risks and benefits were reviewed. Patient is aware she will be contacted to schedule this procedure. All questions were answered and the patient is in agreement of plan. Follow-up after injections and sooner as needed. Orders: Orders XR sacroiliac joint min 3V 11/29/23 M46.1 - Sacroiliitis, not elsewhere classified, M53.3 - Sacrococcygeal disorders, not elsewhere classified XR lumbar spine 4V min 11/29/23 M41.9 - Scoliosis, unspecified, M47.817 - Spondylosis without myelopathy or radiculopathy, lumbosacral region, M51.36 - Other intervertebral disc degeneration, lumbar region Coding Level of Care Code New Pt Level 4 (10555) Diagnoses Lumbosacral spondylosis M47.817 Lumbar scoliosis M41.9 Sacroiliac joint pain M53.3 Sacroiliitis M46.1 Lumbar degenerative disc disease M51.36
[2023-11-29 14:31] VITALS: BP 184/96; PULSE 59; O2SAT 100; BMI 28.2
== END 2023-11-29 15:04 | disposition home or self-care (01) ==
PROVIDERS: PCP Internal Medicine; Visit Provider Nurse Practitioner Family
DX: M47.817 Spondylosis without myelopathy or radiculopathy, lumbosacral region (principal); M41.9 Scoliosis, unspecified; M53.3 Sacrococcygeal disorders, not elsewhere classified; M46.1 Sacroiliitis, not elsewhere classified; M51.36 Other intervertebral disc degeneration, lumbar region
CPT/HCPCS: 99204

== ENCOUNTER → 2023-11-29 13:36 | Outpatient (BNVA) | payer OTHER, SELFPAY | PROVIDERS: PCP Internal Medicine; Visit Provider Nurse Practitioner Family | DX: M47.817 Spondylosis without myelopathy or radiculopathy, lumbosacral region (principal); M51.36 Other intervertebral disc degeneration, lumbar region; M46.1 Sacroiliitis, not elsewhere classified; M53.3 Sacrococcygeal disorders, not elsewhere classified; M41.9 Scoliosis, unspecified | CPT/HCPCS: 99202 ==

== ENCOUNTER 2023-12-03 11:59 | Outpatient (REF) | payer OTHER, SELFPAY ==
--- NOTE | ~2023-12-03 | XR_ITS ---
EXAMINATION: XR SACROILIAC JOINTS CLINICAL INFORMATION: Pain status-post injury in 2016. COMPARISON: None available. TECHNIQUE: AP and bilateral Judet views of the sacroiliac joints FINDINGS: Bones and soft tissues are normal. No fracture. Alignment is anatomic. Sacroiliac joint spaces are well-maintained without erosions or surrounding sclerosis. XR/XR sacroiliac joint min 3V IMPRESSION: Normal sacroiliac joints. Electronically signed by: Ramos Becerra MD 01/01/2024 08:07 PM EDT
--- NOTE | ~2023-12-03 | XR_ITS ---
EXAMINATION: XR LUMBOSACRAL SPINE CLINICAL INFORMATION: Lumbosacral spondylosis, without myelopathy or radiculopathy; pain status-post injury in 2016. COMPARISON: Lumbar spine radiographs dated 05/11/2016. TECHNIQUE: AP, bilateral oblique and lateral views of the lumbar spine and lateral view of the lumbosacral junction. FINDINGS: Vertebral body heights are normal. There is a very mild thoracolumbar dextroscoliosis. At L4-5, there is a 3 mm anterolisthesis. The remaining disc spaces are well-maintained. There is anterior endplate arthropathy at T11-12 and T12-L1. No acute fracture or spondylolisthesis is seen. There is no spondylolysis defect on the oblique views. The posterior elements are intact. The paravertebral soft tissues are unremarkable. XR/XR lumbar spine 4V min IMPRESSION: 1. There is a very mild thoracolumbar dextroscoliosis. 2. There is minimal degenerative disc disease at L4-5. 3. No acute fracture or spondylolisthesis is seen. There is no spondylolysis defect. Electronically signed by: Ramos Becerra MD 01/01/2024 08:36 PM EDT
== END 2023-12-03 12:00 | disposition home or self-care (01) ==
LOC: HO.XRAY 11:59
PROVIDERS: PCP Internal Medicine; Visit Provider Nurse Practitioner Family
DX: M47.817 Spondylosis without myelopathy or radiculopathy, lumbosacral region (principal); M41.9 Scoliosis, unspecified; M51.36 Other intervertebral disc degeneration, lumbar region; M53.3 Sacrococcygeal disorders, not elsewhere classified; M46.1 Sacroiliitis, not elsewhere classified
CPT/HCPCS: 72110; 72202

== ENCOUNTER 2023-12-07 13:34 | Outpatient (AMB) | payer OTHER, SELFPAY ==
--- NOTE | 2023-12-07 13:38 | MHC.OFFVIS ---
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 Patient reports her pain started about a month ago. She has complaints of pain on the volar aspect of her right wrist with any movement of right hand and palpitation. 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 She has tried gabapentin, Tylenol and ibuprofen and finds no relief. Denies recent trauma, numbness and tingling. 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 The patient reports that, with motion or palpation of the wrist, she experiences discomfort on the radial aspect of the right wrist. 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 The patient reports that she has tried Tylenol, ibuprofen, and gabapentin, with no relief. Patient denies any injury to the area. Patient also denies any numbness or tingling in the upper extremity. No other acute complaints or concerns this time [facility] Medical History Arthritis Bronchial asthma Wheezing Seasonal allergies Back pain Anxiety Asthma Herniated disc Depression Mild asthma Right knee pain Surgical History History of endometrial ablation H/O umbilical hernia repair H/O arthroscopy of knee H/O tubal ligation Family History Mother HTN (hypertension) Pneumonia Sister HTN (hypertension) Father Heart attack Social History Housing: House Alcohol intake: never Patient Tobacco Use Status: Former Tobacco user Years Smoked: 20 e-Cigarette/Vaping Use: Never Used Second Hand Smoke Exposure: No service: No Current occupational status: employed 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 Neuro: Median, ulnar, radial nerves motor and sensory intact and sensation is normal to the tips of all digits. Vascular: Cap refill brisk Pain: Patient reports tenderness to palpation of the volar right wrist, worst over the volar radial wrist No other tenderness to palpation at this time ROM: Patient reports discomfort with range of motion testing of the right wrist Patient is able to flex and extend the wrist fully with encouragement Skin: No lacerations or abrasions. General: No ecchymosis, erythema, or evidence of infection. Psych: Appears grossly normal Affect normal Attitude cooperative Assessment & Plan Assessment & Plan (1) Right wrist tendonitis: Code(s): M77.8 - Other enthesopathies, not elsewhere classified Category: Medical Plan 1. Right wrist flexor carpi radialis tendinitis Ongoing for approximately 1 month Patient is educated about this condition and the typical recovery course At this time, patient will be referred to occupational hand therapy for strengthening, range of motion, stabilization of right wrist Patient is educated that, even with physical therapy, tendonitis is typically a long-term recovery course that can take weeks to even months of active physical therapy Patient understands this and is amenable to this plan In the meantime, patient is encouraged to continue with conservative measures for pain management, such as rest, ice, elevation, and aylv-[id number]-uvusoek pain medication Patient will follow-up p.r.n. with any acute concerns Orders: Orders OT Evaluation and Treatment 12/10/23 M77.8 - Other enthesopathies, not elsewhere classified Coding Level of Care Code New Pt Level 3 (54494) Diagnoses Right wrist tendonitis M77.8
== END 2023-12-07 14:05 | disposition home or self-care (01) ==
PROVIDERS: PCP Internal Medicine
DX: M77.8 Other enthesopathies, not elsewhere classified (principal)
CPT/HCPCS: 99203

== ENCOUNTER → 2023-12-07 13:34 | Outpatient (BNVA) | payer OTHER, SELFPAY | PROVIDERS: PCP Internal Medicine | DX: M77.8 Other enthesopathies, not elsewhere classified (principal) | CPT/HCPCS: 99202 ==

== ENCOUNTER 2023-12-20 09:22 | Outpatient (RCR) | payer OTHER, SELFPAY | END 2024-01-03 14:34 | disposition home or self-care (01) | LOC: HO.OT 09:22 | PROVIDERS: PCP Internal Medicine | DX: M77.8 Other enthesopathies, not elsewhere classified (principal) | CPT/HCPCS: 97035; 97140; 97165; 97535 ==

== ENCOUNTER 2024-01-04 14:49 | Outpatient (AMB) | payer OTHER, SELFPAY ==
--- NOTE | 2024-01-04 14:50 | MHC.OFFVIS ---
Intake Visit Reasons: OV-RT hand pain Intake Note: Krystin is a 53 year old right hand dominant female who presents today for a follow up of her Right wrist tendonitis. Pt states she is having pain mainly in her thumb. Pt states her wrist hurts when she tries to move or twist something. Pt denies any numbness in her hand. Audience Development Manager Required: Yes Audience Development Manager Language: Gas Usage Meter Clerk Name: Jules ([id number]) Allergies gabapentin [GABAPENTIN] Adverse Reaction (Intermediate, Verified 01/04/24 14:50) INADEQUATE RESPONSE prednisone [PREDNISONE] Adverse Reaction (Intermediate, Verified 01/04/24 14:50) INADEQUATE RESPONSE BuPROPion HCl Allergy (Intermediate, Uncoded 01/04/24 14:50) memory loss HPI HPI OV-RT hand pain: Details: Patient is a 53-year-old female who presents for follow-up evaluation of the right flexor carpi radialis tendinitis. Today, the patient reports that she has not been able to see occupational therapy yet, but her 1st appointment is booked for later this week. Patient states that she is still experiencing discomfort in the right wrist, but that he has been wearing a brace with daytime activities that has helped. Patient denies any numbness or tingling in the right hand. No other acute complaints or concerns at this time. [facility] Medical History Arthritis Bronchial asthma Wheezing Seasonal allergies Back pain Anxiety Asthma Herniated disc Depression Mild asthma Right knee pain Surgical History History of endometrial ablation H/O umbilical hernia repair H/O arthroscopy of knee H/O tubal ligation Family History Mother HTN (hypertension) Pneumonia Sister HTN (hypertension) Father Heart attack Social History Housing: House Alcohol intake: never Patient Tobacco Use Status: Former Tobacco user Years Smoked: 20 e-Cigarette/Vaping Use: Never Used Second Hand Smoke Exposure: No service: No Current occupational status: employed 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 Neuro: Median, ulnar, radial nerves motor and sensory intact and sensation is normal to the tips of all digits. Vascular: Cap refill brisk Pain: Patient reports tenderness to palpation of the volar right wrist, worst over the volar radial wrist No other tenderness to palpation at this time ROM: Patient reports discomfort with range of motion testing of the right wrist Patient is able to flex and extend the wrist fully with encouragement Skin: No lacerations or abrasions. General: No ecchymosis, erythema, or evidence of infection. Psych: Appears grossly normal Affect normal Attitude cooperative Assessment & Plan Assessment & Plan (1) Right wrist tendonitis: Code(s): M77.8 - Other enthesopathies, not elsewhere classified Category: Medical Plan 1. Right wrist flexor carpi radialis tendinitis Ongoing for approximately 1 month Patient is educated about this condition and the typical recovery course At this time, patient will be referred to occupational hand therapy for strengthening, range of motion, stabilization of right wrist Patient is educated that, even with physical therapy, tendonitis is typically a long-term recovery course that can take weeks to even months of active physical therapy Patient understands this and is amenable to this plan In the meantime, patient is encouraged to continue with conservative measures for pain management, such as rest, ice, elevation, and dvnq-yyr-mohnivh pain medication Patient will follow-up p.r.n. with any acute concerns Orders: Orders OT Evaluation and Treatment 01/04/24 M77.8 - Other enthesopathies, not elsewhere classified Coding Level of Care Code Est Pt Level 3 (89475) Diagnoses Right wrist tendonitis M77.8
== END 2024-01-04 15:13 | disposition home or self-care (01) ==
PROVIDERS: PCP Internal Medicine
DX: M77.8 Other enthesopathies, not elsewhere classified (principal)
CPT/HCPCS: 99213

== ENCOUNTER → 2024-01-04 14:49 | Outpatient (BNVA) | payer OTHER, SELFPAY | PROVIDERS: PCP Internal Medicine | DX: M25.531 Pain in right wrist (principal); M77.8 Other enthesopathies, not elsewhere classified | CPT/HCPCS: 99212 ==

== ENCOUNTER 2024-01-25 11:58 | Outpatient (REF) | payer OTHER, SELFPAY ==
[2024-01-25 12:42] LABS: Appearance Urine Clear; Color Urine Yellow; Glucose Urine UA Negative (Negative); Leukocyte Esterase Urine Negative (Negative); Nitrite Urine Negative (Negative); Specific Gravity - Urine >= 1.030 (1.005-1.025); Urine Blood Negative (Negative); Urine Ketones Negative (Negative); Urine Protein Negative (Neg-Trace)
== END 2024-01-25 11:59 | disposition home or self-care (01) ==
LOC: HO.LAB 11:58
PROVIDERS: PCP Internal Medicine; Visit Provider Internal Medicine
DX: R30.0 Dysuria (principal)
CPT/HCPCS: 81003

== ENCOUNTER 2024-01-29 06:08 | Outpatient (REF) | payer OTHER, SELFPAY | END 2024-01-29 06:09 | disposition home or self-care (01) | LOC: CF 06:08 | PROVIDERS: Visit Provider Anesthesiology | DX: M53.3 Sacrococcygeal disorders, not elsewhere classified (principal); M46.1 Sacroiliitis, not elsewhere classified | CPT/HCPCS: 27096; J2003; J2795; Q9967 ==

== ENCOUNTER 2024-01-29 12:55 | Outpatient (AMB) | payer OTHER, SELFPAY ==
--- NOTE | 2024-01-29 13:04 | A.OFFVIS_ITS ---
Vital Signs 01/29/24 13:11 01/29/24 13:48 Height 5 ft 1 in 5 ft 1 in Weight 149 lb 2 oz 149 lb 2 oz BMI 28.2 28.2 BP 133/83 138/62 Blood Pressure Location Lt brachial Lt brachial Position Sitting Sitting Respiration 17 17 Pulse 98 86 Pulse Source Pulse Oximeter Pulse Oximeter Pulse Oximetry (%) 100 96 Oxygen Delivery Method Room Air Room Air Comment pre-op post-op Intake Visit Reasons: RIGHT DIAGNOSTIC SIJ INJECTION Allergies gabapentin [GABAPENTIN] Adverse Reaction (Intermediate, Verified 01/29/24 13:12) INADEQUATE RESPONSE prednisone [PREDNISONE] Adverse Reaction (Intermediate, Verified 01/29/24 13:12) INADEQUATE RESPONSE BuPROPion HCl Allergy (Intermediate, Uncoded 01/04/24 14:50) memory loss PFSH Medical History Arthritis Bronchial asthma Wheezing Seasonal allergies Back pain Anxiety Asthma Herniated disc Depression Mild asthma Right knee pain Surgical History History of endometrial ablation H/O umbilical hernia repair H/O arthroscopy of knee H/O tubal ligation Family History Mother HTN (hypertension) Pneumonia Sister HTN (hypertension) Father Heart attack Social History Housing: House Alcohol intake: never Patient Tobacco Use Status: Former Tobacco user Years Smoked: 20 e-Cigarette/Vaping Use: Never Used Second Hand Smoke Exposure: No service: No Current occupational status: employed 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 Sexual orientation: Straight/Heterosexual Gender identity: Female Cognitive needs: No Hearing needs: No Vision needs: Yes (glasses) Female Reproductive History Menstrual Age of Menarche: 16 Physical Exam Vital Signs: Last Vital Signs Pulse 98 01/29/24 13:11 Resp 17 01/29/24 13:11 BP 133/83 01/29/24 13:11 Pulse Ox 100 01/29/24 13:11 Oxygen Delivery Method Room Air 01/29/24 13:11 BMI result Body Mass Index 28.2 Assessment & Plan Assessment & Plan (1) Sacroiliitis: Code(s): M46.1 - Sacroiliitis, not elsewhere classified Category: Medical (2) Sacroiliac joint pain: Code(s): M53.3 - Sacrococcygeal disorders, not elsewhere classified Category: Medical Plan Right diagnostic sacroiliac joint injection Informed consent was explained thoroughly to the patient.? All questions about benefits and risks for the procedure were answered.site interpreter department of natural resources officer Irena Pepper helps her to convey this conversation. Patient came to the operating room and was positioned prone on the operating table with the pillow under the abdomen. The lower back and buttocks of the patient were prepped with ChloraPrep prepped and draped with sterile utility towels.? Sterilely draped C-arm was brought over the operating field and sq picture of patient's pelvis was demonstrated on the screen.? For the right joint tilting C-arm contralateral to the site of the joint the most posterior portion of the joints was superimposed with anterior silhouette of the joint.? Skin was injected in the projection of the joint slightly medial to the location of the joint with 25 gauge 1/2 inch needle using local lidocaine 2% . After that 22 gauge 3 and 1/2 inch needle was driven to the right joint in tunnel vision fashion.? When needle entered the joint capsule injection of the contrast was performed demonstrating intra-articular and minimally periarticular spread of the contrast.? After that 4 cc. of ropivacaine 0.5% was injected in the joint. After that procedure was repeated on the left side in mirroring fashion. Same dose of ropivacaine was injected into the joint. Upon completion of the injections the needle was removed and Band-Aid was applied.? Upon completion of the injection patient was taken outside of the operating room to the recovery room where recovered uneventfully. Orders: Orders FL guidance in treatment room Today M53.3 - Sacrococcygeal disorders, not elsewhere classified Coding Level of Care Code Procedure Only Diagnoses Sacroiliitis M46.1 Sacroiliac joint pain M53.3
[2024-01-29 13:11] VITALS: BP 133/83; PULSE 98; RESP 17; O2SAT 100; BMI 28.2
[2024-01-29 13:48] VITALS: BP 138/62; PULSE 86; RESP 17; O2SAT 96; BMI 28.2
== END 2024-01-29 14:36 | disposition home or self-care (01) ==
LOC: HO.PMCPRC 12:55
PROVIDERS: PCP Internal Medicine; Visit Provider Anesthesiology
DX: M46.1 Sacroiliitis, not elsewhere classified (principal); M53.3 Sacrococcygeal disorders, not elsewhere classified
CPT/HCPCS: 27096

== ENCOUNTER 2024-02-05 12:48 | Outpatient (AMB) | payer OTHER, SELFPAY ==
--- NOTE | 2024-02-05 12:54 | A.OFFVIS_ITS ---
Vital Signs 02/05/24 12:58 Height 5 ft 1 in Weight 150 lb BMI 28.3 BP 144/85 H Blood Pressure Location Rt brachial Position Sitting Pulse 72 Pulse Source Pulse Oximeter Pulse Oximetry (%) 98 Oxygen Delivery Method Room Air Intake Visit Reasons: RIGHT DIAGNOSTIC SIJ INJECTION Intake Note: Pain today 11/30 Consumer Advocate Required: Yes Consumer Advocate Language: Electrical And Instrumentation Mechanic Services: Consumer Advocate Present Consumer Advocate Name: Irena #[id number] Accompanied by: Self / Same As Patient Allergies gabapentin [GABAPENTIN] Adverse Reaction (Intermediate, Verified 02/05/24 12:59) INADEQUATE RESPONSE prednisone [PREDNISONE] Adverse Reaction (Intermediate, Verified 02/05/24 12:59) INADEQUATE RESPONSE BuPROPion HCl Allergy (Intermediate, Uncoded 01/04/24 14:50) memory loss HPI Comments Details: Patient presents today to assess response to right diagnostic SI joint on 01/29/[address] Spring. Exploration Geologist was present during today's encounter. Patient reports 20% pain relief for 6 hours since procedure without any significant improvement in daily activities and functioning, mobility or sleep. Patient continues to endorse most of her pain is localized to lower lumbar spine without any radicular symptoms today. She denies radiation of pain to her right buttock or hip or lower extremity. Lumbar spine x-ray in SI joint x-ray results were reviewed with patient today. She is interested to proceed with diagnostic lumbar medial branch blocks as the next steps. Denies any recent cough, cold, infection, fever or other significant changes in medical history since last office visit. Past Procedures: 01/29/24: Right Diagnostic SIJ injection-20% pain relief for 6 hours PRIOR: Patient is a pleasant 53-year-old Yakut-speaking female with history of right sided sciatica with right L4 herniated disc, lumbar scoliosis, anxiety and depression, presents today for initial evaluation of worsening chronic low back pain on the right side. Denies any past or recent trauma, injury, or falls. Patient was previously seen at [facility] where she completed physical therapy 1 year ago and underwent injections about 3 years ago with partial relief. Denies previous spine surgery. Back pain is axial with facetogenic and right sacroiliac joint pain components. Patient denies any radicular symptoms into lower extremities. Pain affects her daily activities and functioning, sleep, mood and social interactions. Pain is constant and is rated 8-10/10. Denies any fever, chills, abdominal or groin pain, weakness, footdrop, bowel or bowel dysfunction or saddle anesthesia. Oswestry low back pain disability score=29 (severe disability) Location: Low back pain with radiation to the right buttock and lateral right hip Duration: Chronic pain for 5 years Characteristics of symptom or complaint: Sharp, dull, tiring, aching, stabbing Aggravating or associated factors: Changing positions, walking, bending, twisting Relieving factors: nothing tried tramadol, Tylenol, ibuprofen, lidocaine patches Treatment: PT, Injections at [facility] Medical History Arthritis Bronchial asthma Wheezing Seasonal allergies Back pain Anxiety Asthma Herniated disc Depression Mild asthma Right knee pain Surgical History History of endometrial ablation H/O umbilical hernia repair H/O arthroscopy of knee H/O tubal ligation Family History Mother HTN (hypertension) Pneumonia Sister HTN (hypertension) Father Heart attack Social History Housing: House Alcohol intake: never Patient Tobacco Use Status: Former Tobacco user Years Smoked: 20 e-Cigarette/Vaping Use: Never Used Second Hand Smoke Exposure: No service: No Current occupational status: employed 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 Alert and oriented. Mood and affect appropriate. Follows and participates in conversation appropriately. Respiratory effort is unlabored. No cough. Able to transition from sit to stand unassisted. Ambulates with bilaterally normal heel strike and toe off. General: Yes no CVA tenderness Back/Spine/Pelvis Other: Limited lumbar ROM due to pain. Normal gait, no limping. Can flex forward to 70- 75 degrees and extend to 5-10 degrees before experiencing lumbar pain. Reports moderate-severe pain with lumbar extension and axial rotations. Demonstrates 5/5 strength of quadriceps bilaterally as well as flexion/dorsiflexion of bilateral feet against resistance. 2+ pedal pulses bilaterally. Straight leg rise with dorsiflexion negative bilaterally. +2 patellar and achilles reflexes bilaterally. Facet loading test positive bilaterally. Gallo sign, Gt?s, Pelvic compression and Stinchfield tests are positive on the right. No groin pain with I/E hip rotations. Back: no CVA tenderness Cervical Spine: cervical ROM normal, cervical muscular tenderness and No Cervical spine tenderness Thoracic/Lumbar Spine: thoracic and lumbar spine normal to inspection, No Thoracic/lumbar spine scar(s), Lasegue's sign negative, straight leg raise negative bilaterally, pain with thoraco-lumbar ROM, paraspinal muscle tenderness on the right greater than left, Thoracic/lumbar scoliosis, No thoracic spinal tenderness and lumbar spinal tenderness (L4-S1) Pelvis: no buttock tenderness and no sciatic notch tenderness Sacroiliac joints: bilaterally tender to palpation Extrem General: Yes capillary refill normal, Yes no clubbing, cyanosis or edema and Yes no calf tenderness Results Reviewed Results Reviewed: MR LUMBAR SPINE WITHOUT CONTRAST 01/14/2016 CLINICAL INFORMATION: Low back pain with right-sided sciatica. FINDINGS: VERTEBRAL BODIES AND PARASPINAL STRUCTURES: There are 5 [id number] lumbar type vertebral bodies. Vertebral body height, signal, and sagittal alignment are maintained. No marrow edema. No spondylolysis. There is a mild S-shaped lumbar scoliosis. There is mild disc desiccation and height loss, asymmetrically on the left at L1-L2 and asymmetrically on the right at L4-L5. The aorta is normal in caliber. No retroperitoneal adenopathy. The imaged SI joints are normal. CONUS MEDULLARIS AND CAUDA EQUINA: The conus terminates normally at L1-L2. There is normal signal within the conus medullaris, cauda equina, and along the expected course of the filum terminale. SPINAL LEVELS: T12-L1: Normal disc morphology. No canal or foraminal stenosis. L1-L2: Minor disc height loss on the left. Otherwise disc morphology is normal. No canal or foraminal stenosis. L2-L3: Normal disc morphology without canal or foraminal stenosis. Small left facet effusion. L3-L4: Normal disc morphology without canal or foraminal stenosis. Small facet effusions. L4-L5: There is disc bulge with a right foraminal shallow protrusion with annular fissuring which appears to potentially contact the inferior aspect of the exiting right L4 nerve root. Mild facet hypertrophy with a small left facet effusion. The canal is well maintained as is the left foramen. L5-S1: Normal disc morphology without canal or foraminal stenosis. IMPRESSION: L4-L5: Shallow right foraminal protrusion potentially contacting the inferior aspect of the exiting right L4 nerve root. Otherwise minor lumbar spondylosis without neural impingement. Mild S-shaped lumbar scoliosis. XR LUMBOSACRAL SPINE 12/03/23 CLINICAL INFORMATION: Lumbosacral spondylosis, without myelopathy or radiculopathy; pain status-post injury in 2016. COMPARISON: Lumbar spine radiographs dated 05/11/2016. FINDINGS: Vertebral body heights are normal. There is a very mild thoracolumbar dextroscoliosis. At L4-5, there is a 3 mm anterolisthesis. The remaining disc spaces are well-maintained. There is anterior endplate arthropathy at T11-12 and T12-L1. No acute fracture or spondylolisthesis is seen. There is no spondylolysis defect on the oblique views. The posterior elements are intact. The paravertebral soft tissues are unremarkable. IMPRESSION: 1. There is a very mild thoracolumbar dextroscoliosis. 2. There is minimal degenerative disc disease at L4-5. 3. No acute fracture or spondylolisthesis is seen. There is no spondylolysis defect. XR SACROILIAC JOINTS 12/03/23 CLINICAL INFORMATION: Pain status-post injury in 2016. FINDINGS: Bones and soft tissues are normal. No fracture. Alignment is anatomic. Sacroiliac joint spaces are well-maintained without erosions or surrounding sclerosis. IMPRESSION: Normal sacroiliac joints. Assessment & Plan Assessment & Plan (1) Lumbosacral spondylosis: Code(s): M47.817 - Spondylosis without myelopathy or radiculopathy, lumbosacral region Category: Medical (2) Lumbar scoliosis: Code(s): M41.9 - Scoliosis, unspecified Category: Medical (3) Sacroiliac joint pain: Code(s): M53.3 - Sacrococcygeal disorders, not elsewhere classified Category: Medical (4) Lumbar degenerative disc disease: Code(s): M51.36 - Other intervertebral disc degeneration, lumbar region Category: Medical Plan Lumbar spine and SIJ imaging results were reviewed with patient today. She recently underwent right diagnostic SIJ injection with minimal pain relief. We will proceed with lumbar MBB as next steps. Schedule Bilateral Diagnostic L3-L4-DR L5 MBB with local and fluoroscopy. Expectations, risks and benefits were reviewed. Patient is aware she will be contacted to schedule this procedure. If she has significant relief from the diagnostic blocks for her axial low back pain, will consider either therapeutic injections, Sprint PNS or RFA depending on her preference. All questions were answered and the patient is in agreement of plan. Follow-up after injections and sooner as needed. Coding Level of Care Code Est Pt Level 4 (59600) Complex EM visit Add On G2211 Diagnoses Lumbosacral spondylosis M47.817 Lumbar scoliosis M41.9 Sacroiliac joint pain M53.3 Lumbar degenerative disc disease M51.36
[2024-02-05 12:58] VITALS: BP 144/85; PULSE 72; O2SAT 98; BMI 28.3
== END 2024-02-05 13:10 | disposition home or self-care (01) ==
PROVIDERS: PCP Internal Medicine; Visit Provider Nurse Practitioner Family
DX: M47.817 Spondylosis without myelopathy or radiculopathy, lumbosacral region (principal); M41.9 Scoliosis, unspecified; M53.3 Sacrococcygeal disorders, not elsewhere classified; M51.369 Other intervertebral disc degeneration, lumbar region without mention of lumbar back pain or lower extremity pain
CPT/HCPCS: 99214; G2211

== ENCOUNTER → 2024-02-05 12:48 | Outpatient (BNVA) | payer OTHER, SELFPAY | PROVIDERS: PCP Internal Medicine; Visit Provider Nurse Practitioner Family | DX: M47.817 Spondylosis without myelopathy or radiculopathy, lumbosacral region (principal); M41.9 Scoliosis, unspecified; M53.3 Sacrococcygeal disorders, not elsewhere classified; M51.369 Other intervertebral disc degeneration, lumbar region without mention of lumbar back pain or lower extremity pain; Z98.890 Other specified postprocedural states | CPT/HCPCS: 99212 ==

== ENCOUNTER 2024-02-07 09:00 | Outpatient (RCR) | payer OTHER, SELFPAY ==
--- NOTE | 2024-01-14 09:59 | MHC.OT.OEV ---
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 She states the pain is a tired feeling and painful causing her to have difficulty completing chores such as sweeping/mopping. She repots her PLOF as (I)ADLs/IADLs and stated she lives alone in a apartment on the 4th floor with 4 flights of stairs. She has an adult daughter who provides support. Patient's main objective is to decrease pain. 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 lives alone min(A)ADLS/IADLS Sleep: has insominia Driving: (I) Vision: Balance: Pain Assessment Pain Score: Lateral volar wrist Pain Scale Used: Pain Location and Description: 8/10- during activity 0/10- at rest Aggravating Factors: Alleviating Factors: Skin and Soft Tissue Assessment Skin and Soft Tissue: Comments: WFL Nerve assessment Ulnar Nerve: Median Nerve: Radial Nerve: Comments: WFL Sensory Assessment Temperature: Light Touch: Proprioception: Vibration: Comments: WFL Edema Assessment Upper Extremity: WNL Lower Extremity: Comments: (L)wrist: 15.6cm, 16.4; (R)16cm, 16.4cm Dexterity Assessment Dexterity: Comments: Special Tests Comments: Jose (+) Phelens (-) AROM(PROM) Strength Cervical Cervical Flexion: Cervical Extension: Cervical Lateral Flexion: Cervical Rotation: Comments: WFL Shoulder Flexion: Extension: Abduction: Internal Rotation: External Rotation: Comments: WFL Flexion: Extension: Abduction: Internal Rotation: External Rotation: Comments: WFL Elbow Flexion: Extension: Pronation: Supination: Comments: WFL Flexion: Extension: Pronation: Supination: Comments: WFL Wrist Flexion: Extension: Ulnar Deviation: Radial Deviation: Comments: WFL Flexion: Extension: Ulnar Deviation: Radial Deviation: Comments: WFL Thumb Thumb CMC Flexion: Thumb MCP Flexion: Thumb IP Flexion: Radial Abduction: Palmar Abduction: Blackey (Kapandji 0-10): Comments: WFL Digits Index MCP: PIP: DIP: Long MCP: PIP: DIP: Ring MCP: PIP: DIP: Small MCP: PIP: DIP: Comments: WFL Gross Grasp: (R)17.5lbs., (L)52.5lbs. Lateral Pinch: Two-Point Pinch: Three-Jaw Isaías: Comments: Patient Education Primary Language: Roll Edge Machine Operator Required: Yes Current Knowledge: Teaching Method: Education Needs Identified on Evaluation: How did patient/family demonstrate learning? Barriers to Learning: Readiness for Learning: Who was educated? Comments: [facility] Plan of Care Assessment: Patient is a 53 y/o female who was referred to skilled OT for pain of the radial side of the wrist to the thumb. She denies numbness/tingling. Based on initial OT evaluation provocative testing revealed (+) Jose test indicating De quervain's tenosynovitis of the (R)thumb. Patient will benefit from skilled intervention to decrease pain and increase strength in order for patient to achieve her PLOF of (I) during self care tasks. Thank you for your referral. STG Duration: 2 weeks Short Term Goals: Patient will be (I) with brace wearing schedule Patient will be (I) with self massage techniques Patient will report pain to 6/10 pain during self care tasks Patient will increase beater operator strength to 20lbs. for improved performance during self care tasks LTG Duration: 4 weeks Boring Machine Set Up Operator Jig Goals: Patient will report 0/10 pain in (R)wrist/thumb Patient will be (I) in HEP Frequency and Duration: The patient will be seen 2x a week for 4 weeks Treatment Plan: Therapeutic Exercise Therapeutic Activity Home Exercise Program Splinting Patient Education ADL Training Ultrasound NMES Iontophoresis Paraffin Fluidotherapy MHP Cold Packs Joint Mobilization Soft Tissue Mobilization Kinesiotaping Other (see comments) Skilled OT eval and treat Electronically Signed By: Chanda Olivera OTR/L, CLT Reviewed/agree with student documentation: Therapist: Please sign and return to therapist, Thank you for your referral.
== END 2024-08-19 11:10 | disposition home or self-care (01) ==
LOC: HO.OT 09:00
PROVIDERS: PCP Internal Medicine
DX: M77.8 Other enthesopathies, not elsewhere classified (principal)
CPT/HCPCS: 97035; 97110; 97140; 97165

== ENCOUNTER 2024-04-28 14:11 | Outpatient (REF) | payer OTHER, SELFPAY ==
[2024-04-28 14:38] LABS: MANUAL DIFF FLAG NO
[2024-04-28 15:31] LABS: Basophils Percent Auto 0.4 % (0-2); Eosinophils Absolute Auto 0.1 X10*3/uL (0.0-0.4); Eosinophils Percent Auto 1.1 % (0-4); Hematocrit 38.7 % (37.0-47.0); Imm Gran Abs Auto 0.01 X10*3/uL (0.00-0.03); Imm Gran Pct Auto 0.2 % (0.0-0.4); Lymphocytes Absolute Auto 2.2 X10*3/uL (1.2-4.9); Lymphocytes Percent Auto 40.3 % (20-40); Mean Corpuscular HGB Conc 33.6 g/dl (31.0-35.0); Mean Corpuscular Hemoglobin 29.3 pg (27.0-33.0); Mean Corpuscular Volume 87.2 fL (80.0-98.0); Mean Platelet Volume 10.6 fL (9.4-12.3); Monocytes Absolute Auto 0.5 X10*3/uL (0.1-1.2); Monocytes Percent Auto 9.7 % (2-11); Neutrophils Absolute Auto 2.6 x10*3/uL (2.0-8.3); Neutrophils Percent Auto 48.3 % (45-73); Platelet Count 305 X10*3/uL (160-400); Red Blood Count 4.44 X10*6/uL (4.20-5.50); Red Cell Distribution Width 12.6 % (11.0-16.0); White Blood Count 5.3 X10*3/uL (4.8-10.8)
[2024-04-28 16:20] LABS: Alanine Aminotransferase 11 U/L (0-31); Albumin Level 4.3 g/dL (3.5-5.0); Anion Gap 10 (12-20); Aspartate Amino Transferase 15 U/L (5-31); Bilirubin Total 0.4 mg/dL (0.0-1.0); Blood Urea Nitrogen 19 mg/dL (9-16); Calcium 9.9 mg/dL (8.4-10.2); Carbon Dioxide 29 mmol/L (22-29); Chloride 104 mmol/L (96-108); Estimated Glomerular Filt Rate > 60; Glucose Random 97 mg/dL (60-115); Sodium 139 mmol/L (135-145); Total Protein 7.7 g/dL (6.5-8.0)
[2024-04-28 17:15] LABS: Alkaline Phosphatase 60 U/L (39-117)
[2024-04-29 16:08] LABS: Anti DNA DS Antibody <1 IU/mL; Antibody to SS-A Antigen <1.0 NEG AI (<1.0 NEG); Antibody to SS-B Antigen <1.0 NEG AI (<1.0 NEG)
== END 2024-04-28 14:12 | disposition home or self-care (01) ==
LOC: HO.LAB 14:11
PROVIDERS: PCP Internal Medicine; Visit Provider Physician Assistant Medical
DX: L30.9 Dermatitis, unspecified (principal)
CPT/HCPCS: 80053; 85025; 86225; 86235

== ENCOUNTER → 2024-05-28 14:25 | Outpatient (BNVA) | payer OTHER, SELFPAY | PROVIDERS: PCP Internal Medicine; Visit Provider Internal Medicine | DX: Z00.00 Encounter for general adult medical examination without abnormal findings (principal); F32.0 Major depressive disorder, single episode, mild | CPT/HCPCS: 90471; 96127; 99396 ==

== ENCOUNTER 2024-06-02 13:34 | Outpatient (REF) | payer OTHER, SELFPAY | END 2024-06-02 13:35 | disposition home or self-care (01) | LOC: HO.MAMMO 13:34 | PROVIDERS: PCP Internal Medicine; Visit Provider Internal Medicine | DX: Z12.31 Encounter for screening mammogram for malignant neoplasm of breast (principal) | CPT/HCPCS: 77063; 77067 ==

== ENCOUNTER → 2024-06-02 14:00 | Outpatient (BNV) | payer OTHER, SELFPAY | PROVIDERS: PCP Internal Medicine; Visit Provider Internal Medicine | DX: Z12.31 Encounter for screening mammogram for malignant neoplasm of breast (principal) | CPT/HCPCS: 77063; 77067 ==

== ENCOUNTER 2024-11-26 09:59 | Outpatient (AMB) | payer OTHER, SELFPAY ==
[2024-11-26 10:00] VITALS: BP 122/78; PULSE 74; O2SAT 97; BMI 27.5
--- NOTE | 2024-11-26 10:00 | A.OFFPC_ITS ---
Vital Signs 11/26/24 10:00 Height 5 ft 1 in Weight 145 lb 6 oz BMI 27.5 BP 122/78 Blood Pressure Location Lt brachial Position Sitting Pulse 74 Pulse Source Pulse Oximeter Pulse Oximetry (%) 97 Oxygen Delivery Method Room Air Intake Visit Reasons: 6 Month F/U Feed Manager Required: No Accompanied by: Self / Same As Patient Allergies gabapentin (GABAPENTIN) Adverse Reaction (Intermediate, Verified 11/26/24 10:13) INADEQUATE RESPONSE prednisone (PREDNISONE) Adverse Reaction (Intermediate, Verified 11/26/24 10:13) INADEQUATE RESPONSE BuPROPion HCl Allergy (Intermediate, Uncoded 11/26/24 10:13) memory loss Medication List - Last Reconciled 11/26/24 by Morelia Mendiola MD albuterol sulfate 2.5 mg (3 mL) inhalation Q6H 30 days blood pressure test kit-medium once a day clonazepam 0.5 mg PO DAILY PRN 30 days dupilumab (Dupixent) 200 mg subcut Q2W hydrochlorothiazide 25 mg PO DAILY 90 days nebulizers (AeroEclipse II Nebulizer) As directed omeprazole 20 mg PO DAILY sertraline 150 mg (1.5 x 100 mg) PO DAILY 90 days tramadol 50 mg PO BID PRN 28 days Tobacco use date assessed: 11/26/24 Dental Screening Dental Screen Date: 11/26/24 Did you have a dental visit in the last 12 months?: Yes Did you have a dental problem in the last 6 months where you did not have access to dental care?: No Was dental information given to patient?: Patient has dentist HPI HPI Comments History of Present Illness Details The patient is a 54-year-old female presenting with hypertension, depression, anxiety, gastroesophageal reflux disease, and insomnia. Hypertension is well-controlled with hydrochlorothiazide 25 mg, as evidenced by good blood pressure readings. Depression management includes sertraline 150 mg, with a noted adverse reaction to bupropion causing memory loss. Anxiety is addressed with clonazepam as needed, and the patient is seeing a psychiatrist. Gastroesophageal reflux disease is managed with omeprazole, with partial symptom control reported. Insomnia remains problematic, with the patient experiencing significant sleep disturbances despite previous interventions. [facility] Medical History (Updated 11/26/24 @ 11:17 by Morelia Mendiola MD) Sacroiliitis Arthritis Bronchial asthma Wheezing Seasonal allergies Back pain Anxiety Asthma Herniated disc Depression Mild asthma Right knee pain Surgical History History of total abdominal hysterectomy History of endometrial ablation H/O umbilical hernia repair H/O arthroscopy of knee H/O tubal ligation Family History Mother HTN (hypertension) Pneumonia Sister HTN (hypertension) Father Heart attack Social History Housing: House Alcohol intake: current Alcohol intake frequency: holidays/special occasions only Alcohol type: beer Patient Tobacco Use Status: Former Tobacco user Years Smoked: 20 e-Cigarette/Vaping Use: Never Used Second Hand Smoke Exposure: No service: No Current occupational status: employed 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 1. Little interest or pleasure in doing things: nearly every day 2. Feeling down, depressed, or hopeless: nearly every day 3. Trouble falling or staying asleep, or sleeping too much: nearly every day 4. Feeling tired or having little energy: several days 5. Poor appetite or overeating: not at all 6. Feeling bad about yourself - or that you are a failure or have let yourself or your family down: not at all 7. Trouble concentrating on things, such as reading the newspaper or watching television: not at all 8. Moving or speaking so slowly that other people could have noticed. Or the opposite - being so fidgety or restless that you have been moving around a lot more than usual: not at all 9. Thoughts that you would be better off or of hurting yourself in some way: not at all Total score: 10 Depression Screening Interpretation: Positive Depression Screening Follow-up: Existing condition, In treatment and Follow-up Visit Requested Depression Screening Done: Yes 73655 - PHQ-9 Billing: Yes Source: Developed by Drs. Alton Motley, Anu Rajesh Padilla and colleagues, with an educational cynthia from [employer]. Thrive Questionnaire Date Thrive assessed: 11/26/24 I am a: Patient What is your living situation today?: I have a steady place to live Within the past 12 months, did the food you bought not last and you didn't have the money to get more?: I choose not to answer this question Within the past 12 months, did you worry whether your food would run out before you got money to buy more?: I choose not to answer this question Do you have trouble paying for medicines?: I choose not to answer this question Do you have trouble getting transportation to medical appointments?: I choose not to answer this question Do you have trouble paying your heating and electricity bill?: I choose not to answer this question Do you have trouble taking care of your child, family member or friend?: I choose not to answer this question Do you have trouble with day-to-day activities such as bathing, preparing meals, shopping, managing finances, etc.?: I choose not to answer this question Are you currently unemployed and looking for a job?: I choose not to answer this question Are you interested in more education?: I choose not to answer this question Please select the resources that you would like help with: None Currently or been in a relationship where the following occur: I choose not to answer THRIVE Score: 0 AUDIT C Alcohol Use Questionnaire (AUDIT-C) 1. How often do you have a drink containing alcohol?: Monthly or less 2. How many drinks containing alcohol do you have on a typical day when you are drinking?: 1 or 2 3. How often do you have six or more drinks on one occasion?: Never Total Score: 1 Score Reviewed/Action Taken: No MAHNAZ-7 AMB Questionnaire MAHNAZ-7 Date MAHNAZ - 7 assessed: 11/26/24 Feeling nervous, anxious, or on edge: 1 = Several days Not being able to stop or control worryin = Several days Worrying too much about different things: 1 = Several days Trouble relaxin = Several days Being so restless that it is hard to sit still: 1 = Several days Becoming easily annoyed or irritable: 1 = Several days Feeling afraid as if something awful might happen: 1 = Several days Total MAHNAZ-7 score (0-4 normal; 5-9 mild; 10-14 moderate; 15-21 severe): 7 Source: Developed by Drs. Alton Motley, Anu Stubbs, Rajesh Nobles and colleagues, with an educational cynthia from [employer]. MAHNAZ-7 Assessment Billing MAHNAZ-7 Assessment Tool: MAHNAZ-7 Assessment 13622 Review of Systems Const All systems reviewed & are unremarkable except as noted in HPI and below Card Denies chest pain at rest, Denies chest pain with activity, Denies edema, Denies irregular heart rhythm, Denies claudication, Denies dyspnea, Denies dyspnea on exertion, Denies orthopnea, Denies paroxysmal nocturnal dyspnea and Denies slow heart rate Resp Denies cough, Denies dyspnea and Denies dyspnea on exertion GI Denies abdominal pain, Denies change in bowel habits, Denies excessive flatus, Denies nausea and Denies vomiting Denies urinary incontinence, Denies urinary hesitancy and Denies urinary urgency Musc Denies atrophy, Denies deformity and Denies limited range of motion Physical exam (Primary Care) Vital Signs: Last Vital Signs Pulse 74 11/26/24 10:00 BP 122/78 11/26/24 10:00 Pulse Ox 97 11/26/24 10:00 Oxygen Delivery Method Room Air 11/26/24 10:00 BMI result Body Mass Index 27.5 Tobacco/Smoking Status: Tobacco use Status Tobacco use date assessed 11/26/24 11/26/24 10:03 Patient Tobacco Use Status Former Tobacco user 11/26/24 10:03 e-Cigarette/Vaping Use Never Used 11/26/24 10:03 PHQ-9: PHQ-9 Score PHQ-9: Total score 10 11/26/24 10:03 Depression Screening Interpretation: Positive Depression Screening Follow-up: Existing condition, In treatment and Follow-up Visit Requested Thrive Assessment: Date of Thrive Assessment Date Thrive assessed 11/26/24 11/26/24 10:03 Currently or been in a relationship where the following occur: I choose not to answer Resp Effort & Inspection: normal respiratory effort Auscultation: clear to auscultation bilaterally Cardio Jugular venous distension: no JVD Rate: regular rate Rhythm: regular rhythm Heart sounds: S1 normal heart sound present and S2 normal heart sound present Extrem General: Yes full ROM Coding Level of Care Code Est Pt Level 4 (15272) Complex EM visit Add On G2211 Diagnoses Mild major depression F32.0 Primary hypertension I10 Hypertension type: primary hypertension Chronic GERD K21.9 Lumbosacral spondylosis M47.817 Insomnia G47.00 Additional Codes PHQ-9 - 13955 - PHQ-9 Billing: Yes ([id number]) MAHNAZ-7 Assessment Billing - MAHNAZ-7 Assessment Tool: MAHNAZ-7 Assessment [id number] ([id number]) Time Spent (min) 23 Assessment & Plan Assessment & Plan (1) Mild major depression: Code(s): F32.0 - Major depressive disorder, single episode, mild Category: Medical (2) HTN (hypertension): Code(s): I10 - Essential (primary) hypertension Category: Medical Qualifiers: Hypertension type: primary hypertension Qualified Code(s): I10 - Essential (primary) hypertension (3) Chronic GERD: Code(s): K21.9 - Gastro-esophageal reflux disease without esophagitis Category: Medical (4) Lumbosacral spondylosis: Code(s): M47.817 - Spondylosis without myelopathy or radiculopathy, lumbosacral region Category: Medical (5) Insomnia: Code(s): G47.00 - Insomnia, unspecified Category: Medical Plan The plan involves maintaining current hypertension management with hydrochlorothiazide due to effective blood pressure control. Depression treatment with sertraline will continue, avoiding bupropion due to adverse effects. Anxiety will be managed with clonazepam as needed, with ongoing psychiatric care. Gastroesophageal reflux disease management with omeprazole will continue, with symptom monitoring advised. For insomnia, magnesium supplementation is recommended, and follow-up is advised if sleep disturbances persist. Patient was informed and verbally consented to the use of an ambient scribe for clinic note documentation during this visit. Orders: Orders Lipid Panel 6 Months E78.5 - Hyperlipidemia, unspecified Vitamin D 25-OH Total 6 Months E55.9 - Vitamin D deficiency, unspecified Comprehensive [place]. Panel Fast 6 Months M54.9 - Dorsalgia, unspecified Referrals Dermatology Referral L98.9 - Disorder of the skin and subcutaneous tissue, unspecified Medications: New magnesium glycinate 300 mg (3 x 100 mg magnesium) PO BEDTIME 270 caps 1RF 90 days
== END 2024-11-26 10:24 | disposition home or self-care (01) ==
LOC: HO.HMCH 09:59
PROVIDERS: PCP Internal Medicine; Visit Provider Internal Medicine
DX: F32.0 Major depressive disorder, single episode, mild (principal); I10 Essential (primary) hypertension; K21.9 Gastro-esophageal reflux disease without esophagitis; M47.817 Spondylosis without myelopathy or radiculopathy, lumbosacral region; G47.00 Insomnia, unspecified

== ENCOUNTER → 2024-11-26 09:59 | Outpatient (BNVA) | payer OTHER, SELFPAY | PROVIDERS: PCP Internal Medicine; Visit Provider Internal Medicine | DX: I10 Essential (primary) hypertension (principal); F41.9 Anxiety disorder, unspecified; K21.9 Gastro-esophageal reflux disease without esophagitis; G47.00 Insomnia, unspecified; F32.0 Major depressive disorder, single episode, mild; M47.817 Spondylosis without myelopathy or radiculopathy, lumbosacral region; E78.5 Hyperlipidemia, unspecified; E55.9 Vitamin D deficiency, unspecified; M54.9 Dorsalgia, unspecified | CPT/HCPCS: 96127; 99212 ==

== ENCOUNTER 2024-12-16 13:21 | Outpatient (AMB) | payer OTHER, SELFPAY ==
--- NOTE | 2024-12-16 13:26 | A.OFFVIS_ITS ---
Vital Signs 12/16/24 13:33 Height 5 ft 1 in Weight 143 lb 2 oz BMI 27.0 BP 143/83 H Blood Pressure Location Lt brachial Position Sitting Pulse 68 Pulse Source Pulse Oximeter Pulse Oximetry (%) 99 Oxygen Delivery Method Room Air Intake Visit Reasons: Spondylosis without myelopathy or radiculopathy Intake Note: Pain today 9/10 County Treasurer Required: Yes County Treasurer Language: Mill Tender Second Operator Services: County Treasurer Present County Treasurer Name: Rose #[id number] Accompanied by: Self / Same As Patient Allergies gabapentin (GABAPENTIN) Adverse Reaction (Intermediate, Verified 12/16/24 13:34) INADEQUATE RESPONSE prednisone (PREDNISONE) Adverse Reaction (Intermediate, Verified 12/16/24 13:34) INADEQUATE RESPONSE BuPROPion HCl Allergy (Intermediate, Uncoded 11/26/24 10:13) memory loss HPI Comments Details: The patient is a 54-year-old female presenting with chronic low back pain. The pain has been persistent and was previously managed with SI joint injections, which provided only 20% relief. She was scheduled for bilateral diagnostic L3-L4-L5 medial branch blocks last year but elected to cancel the procedure. Recently, the patient experienced increased pain in her lower back and on the left side following a fall due to knee issues, for which she has had two surgeries. She sees Orthopedic provider at [facility] for knee pain. The fall exacerbated her existing back pain, which she rates as 9/10 in severity. Previous imaging showed mild degenerative disc disease at L4-L5, arthritis, and mild thoracolumbar dextroscoliosis. Patient is interested to proceed with originally planned injections for potential Sprint PNS trial or RFA procedures. - Onset: Chronic, with recent exacerbation due to a fall - Quality: Severe, rated 9/10, aching, sharp, dull, stabbing, spasming, heavy, tiring - Location: Lower back, with increased pain on the left side - Exacerbating factors: Bending backward, movements, daily activities, recent fall - Relieving factors: Mild relief with tramadol, heat, Tylenol, NSAIDs, lidocaine patches - Interference: Limits range of motion, particularly backward bending, ADLs, sleep, and reduces quality of life PRIOR 02/05/24: Patient presents today to assess response to right diagnostic SI joint on 01/29/[address] Spring. Hairpiece Stylist was present during today's encounter. Patient reports 20% pain relief for 6 hours since procedure without any significant improvement in daily activities and functioning, mobility or sleep. Patient continues to endorse most of her pain is localized to lower lumbar spine without any radicular symptoms today. She denies radiation of pain to her right buttock or hip or lower extremity. Lumbar spine x-ray in SI joint x-ray results were reviewed with patient today. She is interested to proceed with diagnostic lumbar medial branch blocks as the next steps. Denies any recent cough, cold, infection, fever or other significant changes in medical history since last office visit. Past Procedures: 01/29/24: Right Diagnostic SIJ injection-20% pain relief for 6 hours PRIOR: Patient is a pleasant 53-year-old Thai-speaking female with history of right sided sciatica with right L4 herniated disc, lumbar scoliosis, anxiety and depression, presents today for initial evaluation of worsening chronic low back pain on the right side. Denies any past or recent trauma, injury, or falls. Patient was previously seen at [facility] where she completed physical therapy 1 year ago and underwent injections about 3 years ago with partial relief. Denies previous spine surgery. Back pain is axial with facetogenic and right sacroiliac joint pain components. Patient denies any radicular symptoms into lower extremities. Pain affects her daily activities and functioning, sleep, mood and social interactions. Pain is constant and is rated 8-10/10. Denies any fever, chills, abdominal or groin pain, weakness, footdrop, bowel or bowel dysfunction or saddle anesthesia. Oswestry low back pain disability score=29 (severe disability) Location: Low back pain with radiation to the right buttock and lateral right hip Duration: Chronic pain for 5 years Characteristics of symptom or complaint: Sharp, dull, tiring, aching, stabbing Aggravating or associated factors: Changing positions, walking, bending, twisting Relieving factors: nothing tried tramadol, Tylenol, ibuprofen, lidocaine patches Treatment: PT, Injections at [facility] Medical History Sacroiliitis Arthritis Bronchial asthma Wheezing Seasonal allergies Back pain Anxiety Asthma Herniated disc Depression Mild asthma Right knee pain Surgical History History of total abdominal hysterectomy History of endometrial ablation H/O umbilical hernia repair H/O arthroscopy of knee H/O tubal ligation Family History Mother HTN (hypertension) Pneumonia Sister HTN (hypertension) Father Heart attack Social History Housing: House Alcohol intake: current Alcohol intake frequency: holidays/special occasions only Alcohol type: beer Patient Tobacco Use Status: Former Tobacco user Years Smoked: 20 e-Cigarette/Vaping Use: Never Used Second Hand Smoke Exposure: No service: No Current occupational status: employed 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 Alert and oriented. Mood and affect appropriate. Follows and participates in conversation appropriately. Respiratory effort is unlabored. No cough. Able to transition from sit to stand unassisted. Ambulates with bilaterally normal heel strike and toe off. General: Yes no CVA tenderness Back/Spine/Pelvis Other: Limited lumbar ROM due to pain. Normal gait, no limping. Lumbar extension and axial rotations are limited and reproduces moderate to severe pain. Lumbar f lexion is limited and reproduces mild to moderate pain. Demonstrates 5/5 strength of quadriceps bilaterally as well as flexion/dorsiflexion of bilateral feet against resistance. 2+ pedal pulses bilaterally. Straight leg rise with dorsiflexion negative bilaterally. +2 patellar and achilles reflexes bilaterally. Facet loading test positive bilaterally. Gallo sign, Gt?s, Pelvic compression and Stinchfield tests are positive on the right. No groin pain with I/E hip rotations. Back: no CVA tenderness Cervical Spine: cervical ROM normal, cervical muscular tenderness and No Cervical spine tenderness Thoracic/Lumbar Spine: thoracic and lumbar spine normal to inspection, No Thoracic/lumbar spine scar(s), Lasegue's sign negative, straight leg raise negative bilaterally, pain with thoraco-lumbar ROM, paraspinal muscle tenderness on the right greater than left, thoraco-lumbar ROM limited, Thoracic/lumbar sco liosis, No thoracic spinal tenderness and lumbar spinal tenderness (L4-S1) Pelvis: no buttock tenderness and no sciatic notch tenderness Sacroiliac joints: bilaterally tender to palpation Extrem General: Yes capillary refill normal, Yes no clubbing, cyanosis or edema and Yes no calf tenderness Results Reviewed Results Reviewed: MR LUMBAR SPINE WITHOUT CONTRAST 01/14/2016 CLINICAL INFORMATION: Low back pain with right-sided sciatica. FINDINGS: VERTEBRAL BODIES AND PARASPINAL STRUCTURES: There are 5 [id number] lumbar type vertebral bodies. Vertebral body height, signal, and sagittal alignment are maintained. No marrow edema. No spondylolysis. There is a mild S-shaped lumbar scoliosis. There is mild disc desiccation and height loss, asymmetrically on the left at L1-L2 and asymmetrically on the right at L4-L5. The aorta is normal in caliber. No retroperitoneal adenopathy. The imaged SI joints are normal. CONUS MEDULLARIS AND CAUDA EQUINA: The conus terminates normally at L1-L2. There is normal signal within the conus medullaris, cauda equina, and along the expected course of the filum terminale. SPINAL LEVELS: T12-L1: Normal disc morphology. No canal or foraminal stenosis. L1-L2: Minor disc height loss on the left. Otherwise disc morphology is normal. No canal or foraminal stenosis. L2-L3: Normal disc morphology without canal or foraminal stenosis. Small left facet effusion. L3-L4: Normal disc morphology without canal or foraminal stenosis. Small facet effusions. L4-L5: There is disc bulge with a right foraminal shallow protrusion with annular fissuring which appears to potentially contact the inferior aspect of the exiting right L4 nerve root. Mild facet hypertrophy with a small left facet effusion. The canal is well maintained as is the left foramen. L5-S1: Normal disc morphology without canal or foraminal stenosis. IMPRESSION: L4-L5: Shallow right foraminal protrusion potentially contacting the inferior aspect of the exiting right L4 nerve root. Otherwise minor lumbar spondylosis without neural impingement. Mild S-shaped lumbar scoliosis. XR LUMBOSACRAL SPINE 12/03/23 CLINICAL INFORMATION: Lumbosacral spondylosis, without myelopathy or radiculopathy; pain status-post injury in 2016. COMPARISON: Lumbar spine radiographs dated 05/11/2016. FINDINGS: Vertebral body heights are normal. There is a very mild thoracolumbar dextroscoliosis. At L4-5, there is a 3 mm anterolisthesis. The remaining disc spaces are well-maintained. There is anterior endplate arthropathy at T11-12 and T12-L1. No acute fracture or spondylolisthesis is seen. There is no spondylolysis defect on the oblique views. The posterior elements are intact. The paravertebral soft tissues are unremarkable. IMPRESSION: 1. There is a very mild thoracolumbar dextroscoliosis. 2. There is minimal degenerative disc disease at L4-5. 3. No acute fracture or spondylolisthesis is seen. There is no spondylolysis defect. XR SACROILIAC JOINTS 12/03/23 CLINICAL INFORMATION: Pain status-post injury in 2016. FINDINGS: Bones and soft tissues are normal. No fracture. Alignment is anatomic. Sacroiliac joint spaces are well-maintained without erosions or surrounding sclerosis. IMPRESSION: Normal sacroiliac joints. Assessment & Plan Assessment & Plan (1) Lumbosacral spondylosis: Code(s): M47.817 - Spondylosis without myelopathy or radiculopathy, lumbosacral region Category: Medical (2) Lumbar scoliosis: Code(s): M41.9 - Scoliosis, unspecified Category: Medical (3) Lumbar degenerative disc disease: Code(s): M51.36 - Other intervertebral disc degeneration, lumbar region Category: Medical Plan Schedule Bilateral Diagnostic L3-L4-DR L5 MBB with local and fluoroscopy. Expectations, risks and benefits were reviewed. Patient is aware she will be contacted to schedule this procedure. If she has significant relief from the diagnostic blocks for her axial low back pain, will consider either therapeutic injections, Sprint PNS or RFA depending on her preference. All questions and concerns have been answered and patient agreed with the treatment plan. Follow up after injections and sooner as needed. Patient was informed and verbally consented to the use of an ambient scribe for clinic note documentation during this visit. Patient Instructions: I discussed with the patient the plan to reschedule her for bilateral diagnostic L3-L4-L5 medial branch blocks. These injections are diagnostic and could lead to further procedures like peripheral nerve stimulation or radiofrequency ablation, which may provide up to 10-12 months of pain relief. Coding Level of Care Code Est Pt Level 4 (91378) Complex EM visit Add On G2211 Diagnoses Lumbosacral spondylosis M47.817 Lumbar scoliosis M41.9 Lumbar degenerative disc disease M51.36
[2024-12-16 13:33] VITALS: BP 143/83; PULSE 68; O2SAT 99; BMI 27.0
== END 2024-12-16 13:44 | disposition home or self-care (01) ==
LOC: HO.PMC 13:22
PROVIDERS: PCP Internal Medicine; Visit Provider Nurse Practitioner Family
DX: M47.817 Spondylosis without myelopathy or radiculopathy, lumbosacral region (principal); M41.9 Scoliosis, unspecified; M51.369 Other intervertebral disc degeneration, lumbar region without mention of lumbar back pain or lower extremity pain
CPT/HCPCS: 99214

== ENCOUNTER → 2024-12-16 13:21 | Outpatient (BNVA) | payer OTHER, SELFPAY | PROVIDERS: PCP Internal Medicine; Visit Provider Nurse Practitioner Family | DX: M47.817 Spondylosis without myelopathy or radiculopathy, lumbosacral region (principal); M41.9 Scoliosis, unspecified; M51.369 Other intervertebral disc degeneration, lumbar region without mention of lumbar back pain or lower extremity pain | CPT/HCPCS: 99212 ==

== ENCOUNTER 2025-01-28 12:01 | Outpatient (REF) | payer OTHER, SELFPAY ==
[2025-02-04 11:48] LABS: Anti Nuclear Antibody Screen NEGATIVE (NEGATIVE)
== END 2025-01-28 12:02 | disposition home or self-care (01) ==
LOC: HO.LAB 12:01
PROVIDERS: PCP Internal Medicine; Visit Provider Physician Assistant Medical
DX: L30.9 Dermatitis, unspecified (principal)
CPT/HCPCS: 36415; 86038; 86039

== ENCOUNTER 2025-02-10 06:22 | Outpatient (REF) | payer OTHER, SELFPAY | END 2025-02-10 06:23 | disposition home or self-care (01) | LOC: CF 06:22 | PROVIDERS: Visit Provider Anesthesiology | DX: Z13.89 Encounter for screening for other disorder (principal) ==

== ENCOUNTER 2025-02-18 09:46 | Outpatient (AMB) | payer OTHER, SELFPAY ==
--- OUTSIDE RECORDS SUMMARY | 2025-02-13 07:46 | XMS_ITS | Continuity of Care Document ---
Author Organization [facility] ter Address [address] [place] [id number]- Care Team Providers Care Energy Efficiency Engineer Name Role Phone Carmelo Mendiola MD, Yennifer Primary Care Physician [id number] Date(s): 02/12/25 - 02/13/[address] [address]- Discharge Disposition: A-D/C Home Attending Physician: Ansley Gerardo MD Admitting Physician: Ansley Gerardo MD Referring Physician: Not on Staff, Referring MD Encounter Type: Disch ES Allergies, Adverse Reactions, Alerts Substance Criticality Severity Reaction Reaction Severity Status predniSONE unknown Active gabapentin N+V - Nausea an d vomiting Active BuPROPion (Eqv-Wellbutrin SR) memoy loss Active Medications acetaminophen 500 mg oral tablet 2 tablet = 1,000 mg, By Mouth, Every 8 hours, # 60 tablet, 0 Refills, Maintenance, 02/04/24 3:04:00PM EDT, Tablet, [facility], Partial fill upon patient request if the prescription is for a schedule II opioid drug., 154.7, cm, 02/04/24 14:02:00 EDT, Height, 67.6, kg, 04/07/22 6: 52:00 EST, Dry Weight Start Date: 02/04/24 Stop Date: 02/14/24 Status: Ordered Medication Dispense Status: Completed Quantity: 60.0 Unit: tablet Total Allowed Fills: 1 Fills Dispensed: 0 Dupixent Pre-filled Pen 300 mg/2 mL subcutaneous solution See Instructions, 300 mg Subcutaneous Infusion Once every 2 weeks, 0 Refills, Maintenance, 12/14/222:58:00 PM EST, Partial fill upon patient request if the prescription is for a schedule II opioid drug. Start Date: 04/05/22 Status: Ordered Medication Dispense Status: Completed Total Allowed Fills: 1 Fills Dispensed: 0 hydroCHLOROthiazide 12.5 mg oral capsule 1 capsule = 12.5 mg, By Mouth, Daily, 0 Refills, Maintenance, 02/04/24 1:59:00 PM EDT, Partial fillupon patient request if the prescription is for a schedule II opioid drug. Start Date: 02/04/24 Status: Ordered Medication Dispense Status: Completed Total Allowed Fills: 1 Fills Dispensed: 0 ibuprofen 800 mg oral tablet 800 mg, 1, tablet, By Mouth, Every 8 hours, # 30 tablet, Refills 0, Tot. Refills 0, Maintenance, 02/04/24 3:04:00 PM EDT, Route to Pharmacy Electronically, [facility], Partial fill upon patient request if the prescription is for a schedule II opioid drug., 154.7, cm, 02/04/24 14:02:00 EDT, Height, 67.6, kg, 04/07/22 6:52:00 EST, Dry Weight Start Date: 02/04/24 Stop Date: 02/14/24 Status: Ordered Medication Dispense Status: Completed Quantity: 30.0 Unit: tablet Total Allowed Fills: 1 Fills Dispensed: 0 KlonoPIN 0.5 mg oral tablet 0.5 tablet = 0.25 mg, By Mouth, Daily, PRN Anxiety, 0 Refills, Maintenance, 04/05/22 2:57:00 PM EST, Tablet, Partial fill upon patient request if the prescription is for a schedule II opioid drug. Start Date: 04/05/22 Status: Ordered Medication Dispense Status: Completed Total Allowed Fills: 1 Fills Dispensed: 0 MiraLax oral powder for reconstitution = 17 Gm, By Mouth, Daily, PRN Constipation, dissolve in water before taking, # 255 Gm, 0 Refills, Maintenance, 02/04/24 3:04:00 PM EDT, REC Powder, [facility], Partial fill upon patient request if the prescription is for a schedule II opioid drug., 17 Gm By Mouth Daily,PRN:Consti pation,Instr:dissolve in water before taking, 154.7, cm, 02/04/24 14:02:00 EDT, Height, 67.6, kg, 04/07/22 6:52:00 EST, Dry Weight Start Date: 02/04/24 Status: Ordered Medication Dispense Status: Completed Quantity: 255.0 Unit: g Total Allowed Fills: 1 Fills Dispensed: 0 Proventil HFA 90 mcg/inh inhalation aerosol with adapter 1, puffs, Inhalation, 4 times a day, PRN, # 25 Gm, Refills 0, Maintenance, 10/26/22 7:04:00 AM EDT, Aerosol Start Date: 10/26/22 Status: Ordered Medication Dispense Status: Completed Quantity: 25.0 Unit: g Total Allowed Fills: 1 Fills Dispensed: 0 sertraline 100 mg oral tablet 1 tablet = 100 mg, By Mouth, Daily, # 30 tablet, 0 Refills, Maintenance, 04/05/22 2:58:00 PM EST, Tablet, Partial fill upon patient request if the prescription is for a schedule II opioid drug. Start Date: 04/05/22 Status: Ordered Medication Dispense Status: Completed Quantity: 30.0 Unit: tablet Total Allowed Fills: 1 Fills Dispensed: 0 traMADol 50 mg oral tablet 1 tablet = 50 mg, By Mouth, Daily, PRN as needed for pain, 0 Refills, Maintenance, 04/05/22 2:58:00PM EST, Tablet, Partial fill upon patient request if the prescription is for a schedule II opioid drug. Start Date: 04/05/22 Status: Ordered Medication Dispense Status: Completed Total Allowed Fills: 1 Fills Dispensed: 0 Mental Status Mental Status Assessment Assessment Assessment Component Result Effecti ve Date Hilda coma score total 15 Mental Status Assessment Assessment Assessment Component Result Effecti ve Date Hilda coma score total 15 Problem List Condition Confirmation Course Effective Dates Status Health St at Informant Anxiety depression Confirmed Active Asthma Confirmed Active Hypertension Confirmed Active Results Radiology Reports * Exam Date Time Procedure Performing Provider Status 02/13/25 12:52 AM Chest 2 Views Frontal and Lat Auth (Verified) Notes: (Chest 2 Views Frontal and Lat) Reason For Exam: Chest Pain;Other: RESULT: Chest 2 Views Frontal and Lat Chest 2 Views Frontal and Lat Hx of Present Illness: c o high bp and slight headache. takes bp meds daily and has not missed any doses. at home bp reading was 158 91. no other complaints at this time. denies Cp or pressure SOB n v d; Reason: Other:; Chest Pain; Clinical Question(s): Other: / Other: COMPARISON: None. FINDINGS: LINES AND TUBES: None. LUNGS AND PLEURA: Clear lungs. Normal pulmonary vascularity. No pleural effusion. No pneumothorax. HEART, MEDIASTINUM AND NOLA: Heart is normal in size. Normal mediastinal and hilar contour. BONES AND SOFT TISSUES: No acute abnormality. IMPRESSION: No evidence of acute abnormality. WSN: [id number] Ordering Physician: Gt Boone Dictated By: Amado Garcia MD Dictated Date/Time: 02/13/25 8:02 am Reviewed By: Amado Garcia MD Signed By: Amado Garcia MD Signed Date/Time: 02/13/25 8:02 am Transcribed By: MARY Transcribed Date/Time: 02/13/25 8:02 am Vital Signs Most recent to oldest [Reference Range]: 1 2 3 Height 155 cm (02/13/25 12:01 AM) Weight 66 kg (02/13/25 12:01 AM) Oxygen Saturation [94-100 %] 100 % (02/13/25 7:00 AM) 100 % (02/13/25 6:00 AM) 100 % (02/13/25 4:00 AM) Pulse Rate [55-90 bpm] 92 bpm *H* (02/13/25 7:00 AM) 89 bpm (02/13/25 6:00 AM) 94 bpm *H* (02/13/25 4:00 AM) Body Mass Index [18.5-24.99 kg/m2] 27.47 kg/m2 *H* (02/13/25 12:01 AM) Blood Pressure [90-138/55-84 mm Hg] 174/88mm Hg *H* (02/13/25 7:00 AM) 173/92mm Hg *H* (02/13/25 6:00 AM) 169/89mm Hg *H* (02/13/25 4:00 AM) Respiratory Rate [16-30 br/min] 16 br/min (02/13/25 7:00 AM) 16 br/min (02/13/25 6:00 AM) 16 br/min (02/13/25 4:00 AM) Temperature [96.8-100.4 DegF] 98.3 DegF (02/13/25 7:00 AM) 98.6 DegF (02/13/25 12:01 AM) Mode of Delivery (Oxygen) Room air (02/13/25 7:00 AM) Room air (02/13/25 6:00 AM) Room air (02/13/25 4:00 AM) Blood pressure sites Arm, right (02/13/25 12:01 AM) Temperature Route Oral (02/13/25 7:00 AM) Oral (02/13/25 12:01 AM) Dry Weight 66 kg (02/13/25 12:01 AM) Weight Obtained Via Patient/family state d (02/13/25 12:01 AM) Dry Weight Obtained Via Patient/family s tated (02/13/25 12:01 AM) Social History Social History Type Response Smoking Status Never (less than 100 in lifetime) entered on: 02/04/24 Sex Sex Representation Female (finding) Status N/A EKG study * Event Display: ECG 12-Lead Authored Date: Please click on pdf link to open report * Event Display: ECG 12-Lead Authored Date: Ventricular Rate: 103 BPM Atrial Rate: 103 BPM P-R Interval: 148 ms QRS Duration: 90 ms Q-T Interval: 340 ms QTC Calculation(Bazett): 445 ms P [place]: 71 degrees R [place]: 64 degrees T Am[place]: 55 degrees Sinus tachycardia Possible Left atrial enlargement Borderline ECG No previous ECGs available Confirmed by HUNTER PATEL ([id number]) on 02/13/2025 1:02:51 PM [place]: HUNTER PATEL Patient Care team information Care Team Personnel Name: Morelia Jackson MD Position: Reference Physician Member Role: PCP Address: [address] [place] [address]- Telecom: Care Team Related Persons Name: MIRIAM CISNEROS Insurance Providers Guarantor name: SHANDA Health Plan Information #: 1 Payer: [employer] Payer Identifier: SHANDA Member Number: [id number] Group Number: [id number] Subscriber Identifier: [id number] Relationship to Subscriber: self Coverage Type: NA Coverage Verification Date: NA Telecom: NA Address: NA
[2025-02-18 09:53] VITALS: BP 132/100; PULSE 95; O2SAT 99; BMI 26.6
--- NOTE | 2025-02-18 09:53 | MHC.PC.OV ---
Vital Signs 02/18/25 09:53 Height 5 ft 1 in Weight 141 lb BMI 26.6 BP 132/100 H Blood Pressure Location Lt brachial Position Sitting Pulse 95 Pulse Source Pulse Oximeter Pulse Oximetry (%) 99 Oxygen Delivery Method Room Air Intake Visit Reasons: High blood pressure Clinic Business Manager Required: No Accompanied by: Self / Same As Patient Allergies gabapentin (GABAPENTIN) Adverse Reaction (Intermediate, Verified 02/18/25 10:04) INADEQUATE RESPONSE prednisone (PREDNISONE) Adverse Reaction (Intermediate, Verified 02/18/25 10:04) INADEQUATE RESPONSE BuPROPion HCl Allergy (Intermediate, Uncoded 02/18/25 10:04) memory loss Medication List - Last Reconciled 02/18/25 by Morelia Mendiola MD albuterol sulfate 2.5 mg (3 mL) inhalation Q6H 30 days blood pressure test kit-medium once a day clonazepam 0.5 mg PO DAILY PRN 30 days dupilumab (Dupixent) 200 mg subcut Q2W hydrochlorothiazide 25 mg PO DAILY 90 days magnesium glycinate 300 mg (3 x 100 mg magnesium) PO BEDTIME 90 days nebulizers (AeroEclipse II Nebulizer) As directed omeprazole 20 mg PO DAILY sertraline 150 mg (1.5 x 100 mg) PO DAILY 90 days tramadol 50 mg PO BID PRN 28 days Tobacco use date assessed: 02/18/25 Dental Screening Dental Screen Date: 02/18/25 Did you have a dental visit in the last 12 months?: Yes Did you have a dental problem in the last 6 months where you did not have access to dental care?: No Was dental information given to patient?: Patient has dentist HPI HPI Comments History of Present Illness Details The patient is a 54-year-old female presenting for management of hypertension. The patient's blood pressure is elevated today. She has been taking hydrochlorothiazide 25 mg daily since April, which was an increase in dose. Since starting the medication, she has experienced weight loss, with her weight decreasing from 150 lbs in January to her current weight of 141 lbs. She is 5'1 tall, with a BMI of 26, which is in the overweight range. She has been limiting her diet to salads and fruits out of fear of elevating her blood pressure. Recent lab work revealed low potassium, for which she received oral and intravenous potassium supplementation. She sees a psychiatrist for anxiety and takes clonazepam. She reports not sleeping well and was prescribed a new medication for sleep by her psychiatrist. The patient has known allergies to gabapentin, prednisone, and bupropion. She self-administers Dupixent every two weeks. She is scheduled for a hysterectomy in February. [facility] Medical History (Updated 02/18/25 @ 12:39 by Morelia Mendiola MD) Sacroiliitis Arthritis Bronchial asthma Wheezing Seasonal allergies Back pain Anxiety Asthma Herniated disc Depression Mild asthma Right knee pain Surgical History History of total abdominal hysterectomy History of endometrial ablation H/O umbilical hernia repair H/O arthroscopy of knee H/O tubal ligation Family History Mother HTN (hypertension) Pneumonia Sister HTN (hypertension) Father Heart attack Social History Housing: House Alcohol intake: current Alcohol intake frequency: holidays/special occasions only Alcohol type: beer Patient Tobacco Use Status: Former Tobacco user Years Smoked: 20 e-Cigarette/Vaping Use: Never Used Second Hand Smoke Exposure: No service: No Current occupational status: employed 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 Sexual orientation: Straight/Heterosexual Gender identity: Female Cognitive needs: No Hearing needs: No Vision needs: Yes (glasses) Female Reproductive History Menstrual Age of Menarche: 16 Questionnaire Thrive Questionnaire Date Thrive assessed: 05/21/24 I am a: Patient What is your living situation today?: I have a steady place to live Within the past 12 months, did the food you bought not last and you didn't have the money to get more?: I choose not to answer this question Within the past 12 months, did you worry whether your food would run out before you got money to buy more?: I choose not to answer this question Do you have trouble paying for medicines?: I choose not to answer this question Do you have trouble getting transportation to medical appointments?: I choose not to answer this question Do you have trouble paying your heating and electricity bill?: I choose not to answer this question Do you have trouble taking care of your child, family member or friend?: I choose not to answer this question Do you have trouble with day-to-day activities such as bathing, preparing meals, shopping, managing finances, etc.?: I choose not to answer this question Are you currently unemployed and looking for a job?: I choose not to answer this question Are you interested in more education?: I choose not to answer this question Please select the resources that you would like help with: None Currently or been in a relationship where the following occur: I choose not to answer THRIVE Score: 0 AUDIT C Alcohol Use Questionnaire (AUDIT-C) 1. How often do you have a drink containing alcohol?: Monthly or less 2. How many drinks containing alcohol do you have on a typical day when you are drinking?: 1 or 2 3. How often do you have six or more drinks on one occasion?: Never Total Score: 1 Score Reviewed/Action Taken: No MAHNAZ-7 AMB Questionnaire MAHNAZ-7 Date MAHNAZ - 7 assessed: 11/26/24 Source: Developed by Drs. Alton Motley, Anu Stubbs, Rajesh Nobles and colleagues, with an educational cynthia from [employer]. Review of Systems Const All systems reviewed & are unremarkable except as noted in HPI and below Card Denies chest pain at rest, Denies chest pain with activity, Denies edema, Denies irregular heart rhythm, Denies claudication, Denies dyspnea, Denies dyspnea on exertion, Denies orthopnea, Denies paroxysmal nocturnal dyspnea and Denies slow heart rate Resp Denies cough, Denies dyspnea and Denies dyspnea on exertion GI Denies abdominal pain, Denies change in bowel habits, Denies excessive flatus, Denies nausea and Denies vomiting Neuro Denies lack of coordination Physical exam (Primary Care) Vital Signs: Last Vital Signs Pulse 95 02/18/25 09:53 BP 132/100 H 02/18/25 09:53 Pulse Ox 99 02/18/25 09:53 Oxygen Delivery Method Room Air 02/18/25 09:53 BMI result Body Mass Index 26.6 Tobacco/Smoking Status: Tobacco use Status Tobacco use date assessed 02/18/25 02/18/25 09:58 Patient Tobacco Use Status Former Tobacco user 02/18/25 09:58 e-Cigarette/Vaping Use Never Used 02/18/25 09:58 Thrive Assessment: Date of Thrive Assessment Date Thrive assessed 05/21/24 02/18/25 09:58 Currently or been in a relationship where the following occur: I choose not to answer Resp Effort & Inspection: normal respiratory effort Auscultation: clear to auscultation bilaterally Cardio Jugular venous distension: no JVD Rate: regular rate Rhythm: regular rhythm Heart sounds: S1 normal heart sound present and S2 normal heart sound present Extrem General: Yes full ROM Coding Level of Care Code Est Pt Level 3 (97808) Complex EM visit Add On G2211 Diagnoses Primary hypertension I10 Hypertension type: primary hypertension Hypokalemia E87.6 Time Spent (min) 19 Assessment & Plan Assessment & Plan (1) HTN (hypertension): Code(s): I10 - Essential (primary) hypertension Category: Medical Qualifiers: Hypertension type: primary hypertension Qualified Code(s): I10 - Essential (primary) hypertension (2) Hypokalemia: Code(s): E87.6 - Hypokalemia Category: Medical Plan Plan 1. Hypertension The patient's blood pressure remains elevated despite treatment with hydrochlorothiazide 25 mg. She will discontinue hydrochlorothiazide and begin losartan 25 mg daily, which is a low starting dose. The patient was advised to return in three weeks for a blood pressure recheck to assess the effectiveness of losartan and determine if a dose adjustment is necessary. She was also counseled on reducing dietary salt intake. 2. Hypokalemia The patient has a recent history of low potassium requiring supplementation, likely secondary to hydrochlorothiazide use. A repeat potassium level will be checked today. Discontinuation of hydrochlorothiazide is expected to help correct this. 3. Insomnia The patient reports poor sleep, which she attributes to her elevated blood pressure. She was recently prescribed Seroquel by her psychiatrist for sleep. Reassurance was provided that the prescribed dose is low and unlikely to significantly increase her blood pressure, though it may cause weight gain. The patient was advised to take it at night. 4. Overweight The patient has a BMI of 26, classifying her as overweight. She was counseled that her recent weight loss is likely due to the diuretic effect of hydrochlorothiazide. Dietary advice was provided to avoid excessive salt and fried foods, but to otherwise resume a balanced diet instead of a highly restrictive one. 5. Preventive Care The patient declined the influenza vaccine. Orders: Orders Potassium Today I10 - Essential (primary) hypertension Medications: New losartan 25 mg PO DAILY 90 tabs 1RF 90 days Discontinued hydrochlorothiazide Discontinued Reason: Patient Completed Course 25 mg PO DAILY 90 days 90 tabs 1RF
== END 2025-02-18 10:16 | disposition home or self-care (01) ==
LOC: HO.HMCH 09:47
PROVIDERS: PCP Internal Medicine; Visit Provider Internal Medicine
DX: I10 Essential (primary) hypertension (principal); E87.6 Hypokalemia

== ENCOUNTER 2025-02-18 09:46 | Outpatient (REF) | payer OTHER, SELFPAY ==
[2025-02-18 12:14] LABS: Potassium 3.4 mmol/L (3.3-5.1)
== END 2025-02-18 09:47 | disposition home or self-care (01) ==
LOC: HO.LAB 09:46
PROVIDERS: PCP Internal Medicine; Visit Provider Internal Medicine
DX: I10 Essential (primary) hypertension (principal); E87.6 Hypokalemia; Z79.891 Long term (current) use of opiate analgesic; Z79.899 Other long term (current) drug therapy
CPT/HCPCS: 36415; 84132; 99212

== ENCOUNTER → 2025-03-05 11:10 | Outpatient (REF) | payer OTHER, SELFPAY ==
--- NOTE | 2025-03-05 13:37 | ECG_ITS ---
Test Reason : chest pain Blood Pressure : */* mmHG Vent. Rate : 83 BPM Atrial Rate : 83 BPM P-R Int : 144 ms QRS Dur : 88 ms QT Int : 362 ms P-R-T Axes : 57 71 46 degrees QTcB Int : 425 ms Normal sinus rhythm Normal ECG No previous ECGs available Referred By: Morelia Mendiola Electronically Signed By: KRISHNA ENCARNACION MD
== END ==
LOC: HO.CARD 11:10
PROVIDERS: Absent Provider Internal Medicine; PCP Internal Medicine; Visit Provider Internal Medicine Cardiovascular Disease
DX: R07.89 Other chest pain (principal); T46.5X5A Adverse effect of other antihypertensive drugs, initial encounter
CPT/HCPCS: 93005; 99211

== ENCOUNTER → 2025-03-05 13:37 | Outpatient (BNV) | payer OTHER, SELFPAY | PROVIDERS: Absent Provider Internal Medicine; PCP Internal Medicine; Visit Provider Internal Medicine Cardiovascular Disease | DX: R07.9 Chest pain, unspecified (principal) | CPT/HCPCS: 93010 ==

== ENCOUNTER 2025-03-10 17:42 | Emergency (ER) | payer OTHER, SELFPAY ==
[2025-03-10 17:47] VITALS: BP 173/93; PULSE 102; RESP 18; TEMP 36.6; O2SAT 98; BMI 27.4
--- NOTE | 2025-03-10 17:48 | ED.GENADULT ---
HPI - General Adult General Chief complaint: General Medical Stated complaint: High Blood Pressure Time Seen by Provider: 03/10/25 22:00 Related Data Home Medications ?Medication ?Instructions ?Recorded ?Confirmed dupilumab 300 mg/2 mL subcutaneous 200 mg subcut Q2W 07/15/21 02/18/25 pen injector (Dupixent) Previous Rx's ?Medication ?Instructions ?Recorded nebulizers (AeroEclipse II #1 ea 09/01/20 Nebulizer) omeprazole 20 mg capsule,delayed 20 mg PO DAILY #30 caps 11/02/21 release sertraline 100 mg tablet 150 mg (1.5 x 100 mg) PO DAILY 90 11/30/22 days #135 tabs blood pressure test kit-medium #1 ea 04/19/23 albuterol sulfate 2.5 mg/3 mL 2.5 mg (3 mL) inhalation Q6H 30 02/25/24 (0.083 %) solution for nebulization days #360 mL clonazepam 0.5 mg tablet 0.5 mg PO DAILY PRN anxiety 30 10/22/24 days #30 tabs magnesium glycinate 300 mg (3 x 100 mg magnesium) PO 02/24/25 BEDTIME 90 days #270 caps tramadol 50 mg tablet 50 mg PO BID PRN pain 28 days #56 02/24/25 tabs losartan 50 mg tablet 50 mg PO DAILY 90 days #90 tabs 03/10/25 Allergies Allergy/AdvReac Type Severity Reaction Status Date / Time gabapentin (GABAPENTIN) AdvReac Intermediate INADEQUATE Verified 03/10/25 17:51 RESPONSE prednisone (PREDNISONE) AdvReac Intermediate INADEQUATE Verified 03/10/25 17:51 RESPONSE BuPROPion HCl Allergy Intermediate memory loss Uncoded 03/10/25 17:51 PMFSH Past Medical History Medical History Sacroiliitis Arthritis Bronchial asthma Wheezing Seasonal allergies Back pain Anxiety Asthma Herniated disc Depression Mild asthma Right knee pain Surgical History History of total abdominal hysterectomy History of endometrial ablation H/O umbilical hernia repair H/O arthroscopy of knee H/O tubal ligation Family History Family History Mother HTN (hypertension) Pneumonia Sister HTN (hypertension) Father Heart attack Social History Social History Housing: House Alcohol intake: current Alcohol intake frequency: holidays/special occasions only Alcohol type: beer Patient Tobacco Use Status: Former Tobacco user Years Smoked: 20 e-Cigarette/Vaping Use: Never Used Second Hand Smoke Exposure: No Use of substances other than those prescribed or required for medical reasons: No Advance Directives: No Advance Directives Information Provided: No Do you have a plan to hurt others: No Plan Patient : No service: No Current occupational status: employed 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 RME assessment and note performed by: Eri Anne PA-C This is a [id number]-female, with a hx of HTN, who presents to the ER with a complaint of high blood pressure. Patient is currently asymptomatic. She recently saw her primary care physician who discontinued hydrochlorothiazide and started her on losartan 25 mg which she has been compliantly taking For the last 3 weeks. She states that she has been taking her blood pressure readings however they remain to be high. She called her primary care office and reports that they sent over losartan 50 mg to have her start taking given persistent elevation in her blood pressure. patient states that she went to [facility] several days ago where they did blood work, EKG, but did not do anything in regards to her blood pressure. I discussed at length that it can be very harmful if we add any other medications to treat her blood pressure. I discussed at length that it take several weeks for her blood pressure to improve after starting a new medication. Per the PCP note, they were going to follow-up with her in 3 weeks however she does not have a follow-up until May. I discussed with patient that we would not change your medications, nor treat her based on her blood pressure reading as she is asymptomatic. She is demanding blood work as well as a urine sample and EKG. Medical Decision Making Lab Data 03/10/25 18:41 03/10/25 18:41 Labs: Lab Results 03/10/25 Range/Units 18:41 WBC 8.1 (4.8-10.8) X10*3/uL RBC 4.76 (4.20-5.50) X10*6/uL Hgb 13.8 (12.0-16.0) g/dl Hct 41.2 (37.0-47.0) % MCV 86.6 (80.0-98.0) fL MCH 29.0 (27.0-33.0) pg MCHC 33.5 (31.0-35.0) g/dl RDW 12.7 (11.0-16.0) % Plt Count 237 (160-400) X10*3/uL MPV 11.0 (9.4-12.3) fL Immature Gran % (Auto) 0.5 H (0.0-0.4) % Neut % (Auto) 75.3 H (45-73) % Lymph % (Auto) 18.7 L (20-40) % [place] % (Auto) 5.2 (2-11) % Eos % (Auto) 0.1 (0-4) % Baso % (Auto) 0.2 (0-2) % Lymph # (Auto) 1.5 (1.2-4.9) X10*3/uL [place] # (Auto) 0.4 (0.1-1.2) X10*3/uL Eos # (Auto) 0.0 (0.0-0.4) X10*3/uL Baso # (Auto) 0.0 (0.0-0.2) X10*3/uL Abs Immat Gran (auto) 0.04 H (0.00-0.03) X10*3/uL Absolute Neuts (auto) 6.1 (2.0-8.3) x10*3/uL Absolute Nucleated RBC 0.000 (0.0-0.012) X10*3/uL Nucleated RBC % (auto) 0.0 (0.0-0.2) /100WBC Sodium 139 (135-145) mmol/L Potassium 4.1 D (3.3-5.1) mmol/L Chloride 102 (96-108) mmol/L Carbon Dioxide 27 (22-29) mmol/L Anion Gap 14 (12-20) BUN 16 (9-16) mg/dL Creatinine 0.63 (0.5-1.4) mg/dL Estim Creat Clear Calc 90.6 Estimated GFR > 60 Random Glucose 102 (60-115) mg/dL Calcium 9.8 (8.4-10.2) mg/dL Magnesium 2.2 (1.6-2.6) mg/dL Total Bilirubin 0.5 (0.0-1.0) mg/dL Direct Bilirubin 0.2 (0.0-0.5) mg/dL AST 18 (5-31) U/L ALT 16 (0-31) U/L Alkaline Phosphatase 68 (39-117) U/L Troponin I High Sens < 2.7 (<3.5-17.0) ng/L Total Protein 7.9 (6.5-8.0) g/dL Albumin 4.9 (3.5-5.0) g/dL Discharge Plan Discharge Clinical Impression: Hypertension Patient Disposition: Home, Self-Care Instructions: Hypertension (ED) Additional Instructions: You have been monitored in the emergency department for elevated blood pressure without symptoms. There is no evidence of metabolic dysfunction or anemia. Your BP is 160/84 and pulse is normal at 84. You had your blood pressure adjusted yesterday. It can take 2-4 weeks to make a difference. Check BP no more than twice a day. REturn to the ER if you develop chest pain, shortness or breath or headache. FOllow up with your PCP. Prescriptions: No Action (DME) AeroEclipse II Nebulizer Misc See Rx Instructions .ROUTE .MEDSUPPLY Qty: 1 0RF Rx Instructions: As directed (DME) blood pressure test kit-medium Kit See Rx Instructions .Route Qty: 1 0RF Rx Instructions: once a day albuterol sulfate 2.5 mg /3 mL (0.083 %) solution for nebulization 2.5 mg inhalation Q6H 30 Days Qty: 360 2RF clonazepam 0.5 mg tablet 0.5 mg PO DAILY PRN (Reason: anxiety) 30 Days Qty: 30 0RF tramadol 50 mg tablet 50 mg PO BID PRN (Reason: pain) 28 Days Qty: 56 0RF magnesium glycinate 100 mg magnesium capsule 300 mg PO BEDTIME 90 Days Qty: 270 1RF losartan 50 mg tablet 50 mg PO DAILY 90 Days Qty: 90 1RF ipratropium-albuterol 0.5 mg-3 mg(2.5 mg base)/3 mL solution for nebulization 3 ml inhalation ONCE Qty: 3 0RF albuterol sulfate 2.5 mg /3 mL (0.083 %) solution for nebulization 2.5 mg continuous nebulization ONCE Qty: 3 0RF Dupixent Pen 300 mg/2 mL pen injector 200 mg subcut Q2W sertraline 100 mg tablet 150 mg PO DAILY 90 Days Qty: 135 1RF omeprazole 20 mg capsule,delayed release(DR/EC) 20 mg PO DAILY Qty: 30 5RF Referrals: Morelia Jackson MD [Primary Care Provider, Internal Medicine] Print Language: Austrian
--- NOTE | 2025-03-10 18:19 | ECG_ITS ---
Test Reason : TACHYCARDIA Blood Pressure : */* mmHG Vent. Rate : 76 BPM Atrial Rate : 76 BPM P-R Int : 138 ms QRS Dur : 80 ms QT Int : 386 ms P-R-T Axes : 21 59 45 degrees QTcB Int : 434 ms Normal sinus rhythm Normal ECG When compared with ECG of 05-Mar-2025 13:40, No significant change was found Referred By: Eri Anne Electronically Signed By: KALIA ESPINO
[2025-03-10 19:23] LABS: MANUAL DIFF FLAG NO
[2025-03-10 19:24] LABS: Hematocrit 41.2 % (37.0-47.0); Hemoglobin 13.8 g/dl (12.0-16.0); Imm Gran Abs Auto 0.04 X10*3/uL (0.00-0.03); Imm Gran Pct Auto 0.5 % (0.0-0.4); Lymphocytes Absolute Auto 1.5 X10*3/uL (1.2-4.9); Mean Corpuscular HGB Conc 33.5 g/dl (31.0-35.0); Mean Corpuscular Hemoglobin 29.0 pg (27.0-33.0); Mean Corpuscular Volume 86.6 fL (80.0-98.0); NRBC Abs Auto 0.000 X10*3/uL (0.0-0.012); NRBC Pct Auto 0.0 /100WBC (0.0-0.2); Platelet Count 237 X10*3/uL (160-400); Red Blood Count 4.76 X10*6/uL (4.20-5.50); White Blood Count 8.1 X10*3/uL (4.8-10.8)
[2025-03-10 19:41] LABS: Alanine Aminotransferase 16 U/L (0-31); Albumin Level 4.9 g/dL (3.5-5.0); Alkaline Phosphatase 68 U/L (39-117); Anion Gap 14 (12-20); Aspartate Amino Transferase 18 U/L (5-31); Blood Urea Nitrogen 16 mg/dL (9-16); Calcium 9.8 mg/dL (8.4-10.2); Carbon Dioxide 27 mmol/L (22-29); Chloride 102 mmol/L (96-108); Creatinine Clr Calc Pharmacy 90.6; Estimated Glomerular Filt Rate > 60; Magnesium 2.2 mg/dL (1.6-2.6); Potassium 4.1 mmol/L (3.3-5.1); Sodium 139 mmol/L (135-145); Total Protein 7.9 g/dL (6.5-8.0)
[2025-03-10 19:51] LABS: Troponin-I High Sensitivity < 2.7 ng/L (<3.5-17.0)
[2025-03-10 21:07] VITALS: BP 189/89; PULSE 121; RESP 14; TEMP 36.8; O2SAT 99
--- NOTE | 2025-03-10 21:42 | PC.NURSE ---
Pt is serbian speaking only, per dtr at bedside, pt here w/ c/o fluctuating elevated bp's x past two weeks. Pt denies c/o dizziness, h/a, cp, blurred vision, or weakness. Pt called pcp today and was instructed to increase her current bp med from losartan 50mg to losartan 75mg. It is reported pt was unable to obtain script because the pharmacy was closed.
[2025-03-10 23:14] VITALS: BP 177/86; PULSE 84; RESP 14; TEMP 36.8; O2SAT 95
== END 2025-03-10 23:16 | disposition home or self-care (01) ==
PROVIDERS: Physician Assistant Medical; Emergency Provider Emergency Medicine; PCP Internal Medicine
DX: I10 Essential (primary) hypertension (principal); J45.909 Unspecified asthma, uncomplicated; Z79.899 Other long term (current) drug therapy
CPT/HCPCS: 36415; 80048; 80076; 83735; 84484; 85025; 93005; 99283; 99284

== ENCOUNTER → 2025-03-10 18:19 | Outpatient (BNV) | payer OTHER, SELFPAY | PROVIDERS: Emergency Provider Emergency Medicine; PCP Internal Medicine; Visit Provider Internal Medicine | DX: R00.0 Tachycardia, unspecified (principal) | CPT/HCPCS: 93010 ==

== ENCOUNTER 2025-03-18 10:21 | Outpatient (AMB) | payer OTHER, SELFPAY ==
--- NOTE | 2025-03-18 10:32 | MHC.PC.OV ---
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 Accompanied by: Self / Same As Patient Allergies gabapentin (GABAPENTIN) Adverse Reaction (Intermediate, Verified 03/18/25 10:32) INADEQUATE RESPONSE prednisone (PREDNISONE) Adverse Reaction (Intermediate, Verified 03/18/25 10:32) INADEQUATE RESPONSE BuPROPion HCl Allergy (Intermediate, Uncoded 03/10/25 17:51) memory loss Medication List - Last Reconciled 03/18/25 by Salvador Cannon MD albuterol sulfate 2.5 mg (3 mL) inhalation Q6H 30 days blood pressure test kit-medium once a day dupilumab (Dupixent) 200 mg subcut Q2W estradiol 1 patch topical QWEEK lorazepam mg PO losartan 50 mg PO DAILY 90 days nebulizers (AeroEclipse II Nebulizer) As directed quetiapine 50 mg PO BEDTIME sertraline 150 mg (1.5 x 100 mg) PO DAILY 90 days tramadol 50 mg PO BID PRN 28 days Tobacco use date assessed: 02/18/25 Dental Screening Dental Screen Date: 02/18/25 HPI HPI Comments History of Present Illness Details The patient is a 54 year old individual presenting for follow-up for uncontrolled hypertension. The patient has visited the emergency room twice for elevated blood pressure, with the most recent visit being last Sunday. During the ER visit, the blood pressure was 177/86 mmHg, and today's reading is 176/90 mmHg. A workup in the ER included three normal EKGs, negative blood work, and a normal urine test. Renal function was normal with a creatinine of 0.63. The patient denies any associated headaches, chest pain, or shortness of breath. The patient was on losartan, and the dose was increased from 25 mg to 50 mg last Sunday. The patient reports experiencing panic attacks, which have been occurring in relation to the patient's elevated blood pressure. The panic attacks are triggered after seeing the high blood pressure numbers. The patient sees a therapist for the panic attacks and takes lorazepam and sertraline as prescribed by a psychiatrist. [facility] Medical History Sacroiliitis Arthritis Bronchial asthma Wheezing Seasonal allergies Back pain Anxiety Asthma Herniated disc Depression Mild asthma Right knee pain Surgical History History of total abdominal hysterectomy History of endometrial ablation H/O umbilical hernia repair H/O arthroscopy of knee H/O tubal ligation Family History Mother HTN (hypertension) Pneumonia Sister HTN (hypertension) Father Heart attack Social History Housing: House Alcohol intake: current Alcohol intake frequency: holidays/special occasions only Alcohol type: beer Patient Tobacco Use Status: Former Tobacco user Years Smoked: 20 e-Cigarette/Vaping Use: Never Used Second Hand Smoke Exposure: No service: No Current occupational status: employed 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 Sexual orientation: Straight/Heterosexual Gender identity: Female Cognitive needs: No Hearing needs: No Vision needs: Yes (glasses) Female Reproductive History Menstrual Age of Menarche: 16 Questionnaire Thrive Questionnaire Date Thrive assessed: 05/21/24 I am a: Patient What is your living situation today?: I have a steady place to live Within the past 12 months, did the food you bought not last and you didn't have the money to get more?: I choose not to answer this question Within the past 12 months, did you worry whether your food would run out before you got money to buy more?: I choose not to answer this question Do you have trouble paying for medicines?: I choose not to answer this question Do you have trouble getting transportation to medical appointments?: I choose not to answer this question Do you have trouble paying your heating and electricity bill?: I choose not to answer this question Do you have trouble taking care of your child, family member or friend?: I choose not to answer this question Do you have trouble with day-to-day activities such as bathing, preparing meals, shopping, managing finances, etc.?: I choose not to answer this question Are you currently unemployed and looking for a job?: I choose not to answer this question Are you interested in more education?: I choose not to answer this question Please select the resources that you would like help with: None Currently or been in a relationship where the following occur: I choose not to answer THRIVE Score: 0 MAHNAZ-7 AMB Questionnaire MAHNAZ-7 Date MANHAZ - 7 assessed: 11/26/24 Source: Developed by Drs. Alton Motley, Anu Stubbs, Rajesh Nobles and colleagues, with an educational cynthia from [email or web address]. Review of Systems Const Details: As per HPI. Physical exam (Primary Care) Vital Signs: Last Vital Signs Pulse 113 H 03/18/25 10:33 Resp 16 03/18/25 10:33 BP 176/90 H 03/18/25 10:33 Pulse Ox 100 03/18/25 10:33 Oxygen Delivery Method Room Air 03/18/25 10:33 BMI result Body Mass Index 26.1 Tobacco/Smoking Status: Tobacco use Status Tobacco use date assessed 02/18/25 03/18/25 10:35 Patient Tobacco Use Status Former Tobacco user 03/18/25 10:35 e-Cigarette/Vaping Use Never Used 03/18/25 10:35 Thrive Assessment: Date of Thrive Assessment Date Thrive assessed 05/21/24 03/18/25 10:35 Currently or been in a relationship where the following occur: I choose not to answer Coding Level of Care Code Est Pt Level 3 (81077) Diagnoses Primary hypertension I10 Hypertension type: primary hypertension Time Spent (min) 20 Assessment & Plan Assessment & Plan (1) HTN (hypertension): Code(s): I10 - Essential (primary) hypertension Category: Medical Qualifiers: Hypertension type: primary hypertension Qualified Code(s): I10 - Essential (primary) hypertension Plan: - The patient's blood pressure remains elevated at 176/90 mmHg despite a recent increase of losartan to 50 mg. - Workup in the emergency department, including multiple EKGs, blood work, and urinalysis, was unremarkable. - Due to persistently high readings, amlodipine 5 mg will be added to the current regimen. - A follow-up is scheduled in three weeks to assess response to the new medication. - We will increase medications dose if BP continues to be elevated at the next visit. - We will assess for pheochromcytoma and other secondary causes of HTN if the patient continues to have panic attacks and elevated BP. Plan I discussed with the patient that the blood pressure remains elevated despite the recent increase in losartan dosage. I explained that combination therapy is often more effective, and I will be adding amlodipine 5 mg. We will reassess the blood pressure in three weeks. I addressed the patient's concerns regarding potential drug interactions, confirming that the new medication is safe to take with the existing prescriptions for lorazepam and sertraline. We also discussed the panic attacks, which appear to be triggered by seeing high blood pressure readings. I recommended reducing the frequency of blood pressure checks to three times a week during a period of relaxation to mitigate this anxiety. I provided reassurance that the blood pressure will be brought under control. Medications: New amlodipine 5 mg PO DAILY 90 tabs 3RF
[2025-03-18 10:33] VITALS: BP 176/90; PULSE 113; RESP 16; O2SAT 100; BMI 26.1
== END 2025-03-18 12:06 | disposition home or self-care (01) ==
LOC: HO.HMCH 10:22
PROVIDERS: PCP Internal Medicine; Visit Provider Internal Medicine
DX: I10 Essential (primary) hypertension (principal)

== ENCOUNTER → 2025-03-18 10:21 | Outpatient (BNVA) | payer OTHER, SELFPAY | PROVIDERS: PCP Internal Medicine; Visit Provider Internal Medicine | DX: I10 Essential (primary) hypertension (principal); F41.0 Panic disorder [episodic paroxysmal anxiety]; F41.9 Anxiety disorder, unspecified; Z79.899 Other long term (current) drug therapy | CPT/HCPCS: 99212 ==

== ENCOUNTER 2025-04-17 15:45 | Outpatient (AMB) | payer OTHER, SELFPAY ==
--- NOTE | 2025-04-17 15:53 | A.OFFPC_ITS ---
Vital Signs 04/17/25 15:56 Height 5 ft 1 in Weight 135 lb BMI 25.5 BP 110/70 Blood Pressure Location Lt brachial Position Sitting Pulse 74 Pulse Source Pulse Oximeter Temp 97.6 F Temp Source Temporal Artery Scan Pulse Oximetry (%) 98 Oxygen Delivery Method Room Air Intake Visit Reasons: 3 weeks f/u Care Administrative Tech Required: Yes Care Administrative Tech Language: Hack Driver Name: Gopal [id number] Information Interpreted: non-clinical & clinical Geotechnical Operating Engineer: Not Required per policy Accompanied by: Self / Same As Patient Allergies gabapentin (GABAPENTIN) Adverse Reaction (Intermediate, Verified 04/17/25 15:55) INADEQUATE RESPONSE prednisone (PREDNISONE) Adverse Reaction (Intermediate, Verified 04/17/25 15:55) INADEQUATE RESPONSE BuPROPion HCl Allergy (Intermediate, Uncoded 04/17/25 15:55) memory loss Medication List - Last Reconciled 04/17/25 by Salvador Cannon MD albuterol sulfate 2.5 mg (3 mL) inhalation Q6H 30 days amlodipine 5 mg PO DAILY blood pressure test kit-medium once a day dupilumab (Dupixent) 200 mg subcut Q2W estradiol 1 patch topical QWEEK lorazepam mg PO losartan 50 mg PO DAILY 90 days nebulizers (AeroEclipse II Nebulizer) As directed quetiapine 50 mg PO BEDTIME sertraline 150 mg (1.5 x 100 mg) PO DAILY 90 days tramadol 50 mg PO BID PRN 28 days Tobacco use date assessed: 04/17/25 Dental Screening Dental Screen Date: 02/18/25 HPI HPI Comments History of Present Illness Details The patient is a 54 year old female presenting for a follow-up visit for management of hypertension. She was last seen on March 18 with a blood pressure of 170/90 mmHg. Her home blood pressure readings were initially elevated but have progressively improved. Today BP is 110/70 mmHg. She is currently taking amlodipine 5 mg and losartan 50 mg and reports no issues with these medications. No other recent medication changes were reported. [facility] Medical History Sacroiliitis Arthritis Bronchial asthma Wheezing Seasonal allergies Back pain Anxiety Asthma Herniated disc Depression Mild asthma Right knee pain Surgical History History of total abdominal hysterectomy History of endometrial ablation H/O umbilical hernia repair H/O arthroscopy of knee H/O tubal ligation Family History Mother HTN (hypertension) Pneumonia Sister HTN (hypertension) Father Heart attack Social History Housing: House Alcohol intake: current Alcohol intake frequency: holidays/special occasions only Alcohol type: beer Patient Tobacco Use Status: Former Tobacco user Years Smoked: 20 e-Cigarette/Vaping Use: Never Used Second Hand Smoke Exposure: Yes service: No Current occupational status: employed 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 Sexual orientation: Straight/Heterosexual Gender identity: Female Cognitive needs: No Hearing needs: No Vision needs: Yes (glasses) Female Reproductive History Menstrual Age of Menarche: 16 Questionnaire Thrive Questionnaire Date Thrive assessed: 05/21/24 I am a: Patient What is your living situation today?: I have a steady place to live Within the past 12 months, did the food you bought not last and you didn't have the money to get more?: I choose not to answer this question Within the past 12 months, did you worry whether your food would run out before you got money to buy more?: I choose not to answer this question Do you have trouble paying for medicines?: I choose not to answer this question Do you have trouble getting transportation to medical appointments?: I choose not to answer this question Do you have trouble paying your heating and electricity bill?: I choose not to answer this question Do you have trouble taking care of your child, family member or friend?: I choose not to answer this question Do you have trouble with day-to-day activities such as bathing, preparing meals, shopping, managing finances, etc.?: I choose not to answer this question Are you currently unemployed and looking for a job?: I choose not to answer this question Are you interested in more education?: I choose not to answer this question Please select the resources that you would like help with: None Currently or been in a relationship where the following occur: I choose not to answer THRIVE Score: 0 MAHNAZ-7 AMB Questionnaire MAHNAZ-7 Date MAHNAZ - 7 assessed: 11/26/24 Source: Developed by Drs. Alton Motley, Anu Stubbs, Rajesh Nobles and colleagues, with an educational cynthia from [employer]. Review of Systems Const Details: As per HPI. Physical exam (Primary Care) Vital Signs: Last Vital Signs Temp 97.6 F 04/17/25 15:56 Pulse 74 04/17/25 15:56 BP 110/70 04/17/25 15:56 Pulse Ox 98 04/17/25 15:56 Oxygen Delivery Method Room Air 04/17/25 15:56 BMI result Body Mass Index 25.5 Tobacco/Smoking Status: Tobacco use Status Tobacco use date assessed 04/17/25 04/17/25 16:03 Patient Tobacco Use Status Former Tobacco user 04/17/25 16:03 e-Cigarette/Vaping Use Never Used 04/17/25 16:03 Thrive Assessment: Date of Thrive Assessment Date Thrive assessed 05/21/24 04/17/25 16:03 Currently or been in a relationship where the following occur: I choose not to answer Const Other: Pertinent findings are in BOLD GENERAL APPEARANCE NAD, activity normal for age, well developed/ well nourished, no cyanosis, pallor, or diaphoresis. EYES lids/conjunctiva normal. EARS/NOSE/THROAT Mucous membranes moist, nares normal, lips/teeth normal uvula midline without oral pharyngeal erythema, exudate or swelling TMs normal bilaterally. No lymphangitis/lymphedema. HEAD/NECK normocephalic atraumatic, no facial trauma, neck is supple. RESPIRATORY respiratory effort normal, speaks in full sentences, no tripod posi tion, no accessory muscle use. Lungs clear to auscultation without rhonchi, wheezes, rales CARDIAC Regular rate and rhythm, no edema. ABDOMINAL Soft, ND/NT. No evidence of fluid wave. No pulsatile masses on exam, rebound tenderness, Amor sign or pain over Mcburney's point. MUSCLES/EXTREMITIES No abnormal range of motion, no swelling. SKIN Warm, pink and dry. No rashes, dermatoses, petechiae or lesions. NEUROLOGICAL Speech is clear and appropriate. Normal level of consciousness. Gait and coordination are normal. 5/5 strength in all extremities. PSYCH Normal mood and affect. Judgement/competence is appropriate Coding Level of Care Code Est Pt Level 3 (84608) Diagnoses Primary hypertension I10 Hypertension type: primary hypertension Time Spent (min) 20 Assessment & Plan Assessment & Plan (1) HTN (hypertension): Code(s): I10 - Essential (primary) hypertension Category: Medical Qualifiers: Hypertension type: primary hypertension Qualified Code(s): I10 - Essential (primary) hypertension Plan: - The patient's blood pressure has improved to 110/70 mmHg from 170/90 mmHg at the prior visit. - Home blood pressure readings have also shown improvement. - Continue amlodipine 5 mg and losartan 50 mg. - The patient denies any side effects from her medications. Plan I discussed with the patient the significant improvement in her blood pressure, noting the current reading of 110/70 mmHg compared to 170/90 mmHg at her last visit on March 18. We acknowledged the improvement in her home blood pressure readings as well. I advised her to continue her current medications, amlodipine 5 mg and losartan 50 mg, as she is tolerating them well without any reported issues.
[2025-04-17 15:56] VITALS: BP 110/70; PULSE 74; TEMP 36.4; O2SAT 98; BMI 25.5
== END 2025-04-17 16:12 | disposition home or self-care (01) ==
LOC: HO.HMCH 15:46
PROVIDERS: PCP Internal Medicine; Visit Provider Internal Medicine
DX: I10 Essential (primary) hypertension (principal)

== ENCOUNTER → 2025-04-17 15:45 | Outpatient (BNVA) | payer OTHER, SELFPAY | PROVIDERS: PCP Internal Medicine; Visit Provider Internal Medicine | DX: I10 Essential (primary) hypertension (principal) | CPT/HCPCS: 99212 ==